=== PATIENT | female | born 1940 | race Caucasian/White ===

== ENCOUNTER 2017-01-03 19:51 | Emergency (ER) | payer MEDICARE ==
[~2017-01-03] VITALS: Ht 162.6 cm; Wt 68.0 kg
[2017-01-03] MEDS ORDERED: ADENOSINE 6 MG/2 ML (ADENOCARD) VIAL IV ONE ×3 (19:57→20:45)
[2017-01-03] MEDS ORDERED: NS IV 1000 ML 1,000 ML ONE (20:03)
--- NOTE | 2017-01-03 20:19 | ED Cardiac General ---
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 Patient apparently c/ long hx of SVT. Her turkish line attendant is apparently @ [facility] in [place] and she just moved to this area and hasn't established c/ anyone here yet. Denies any chest pain. Does get a little SOA when this occurs. Reports not missing any of her meds. States this just happens about every 3 months. Denies ever being considered for ablation therapy. Timing/Duration: constant, other (just INVESTMENT BROKER) Activities at Onset: rest Prior CP/Workup: cardiac cath (c/ stent in past) Modifying Factors: improves with other (nothing) NTG SL INVESTMENT BROKER: No ASA po INVESTMENT BROKER: No Associated Systoms: No Chest Pain, Shortness of Air Allergies and Home Medications Allergies Coded Allergies: codeine (Verified Allergy, Unknown, 01/03/17) Review of Systems Constitutional: see HPI Respiratory: See HPI, Shortness of Air Cardiovascular: See HPI, Denies Chest Pain, Palpitations All Other Systems Reviewed Negative Unless Noted: Yes (Negative excepted noted.) Physical Exam Vital Signs Vital Sign - Last 12Hours 01/03/17 19:51 Temp 99.4 Pulse 177 Resp 20 B/P (MAP) 123/98 Pulse Ox 98 O2 Delivery Room Air Capillary Refill : General Appearance: No Apparent Distress, WD/WN, Other (patient very calm) Respiratory: No Respiratory Distress Cardiovascular: Tachycardia Rectal: Deferred Neurologic/Psychiatric: Alert, Oriented x3, No Motor/Sensory Deficits, Normal Mood/Affect Skin: Warm/Dry Progress/Results/Core Measures Results/Orders Lab Results Laboratory Tests Test 01/03/17 20:05 Range/Units White Blood Count 8.4 4.3-11.0 10^3/uL Red Blood Count 4.78 4.35-5.85 10^6/uL Hemoglobin 14.2 11.5-16.0 G/DL Hematocrit 43 35-52 % Mean Corpuscular Volume 90 80-99 FL Mean Corpuscular Hemoglobin 30 25-34 PG Mean Corpuscular Hemoglobin Concent 33 32-36 G/DL Red Cell Distribution Width 14.8 H 10.0-14.5 % Platelet Count 263 130-400 10^3/uL Mean Platelet Volume 9.3 7.4-10.4 FL Neutrophils (%) (Auto) 58 42-75 % Lymphocytes (%) (Auto) 30 12-44 % Monocytes (%) (Auto) 9 0-12 % Eosinophils (%) (Auto) 2 0-10 % Basophils (%) (Auto) 0 0-10 % Neutrophils # (Auto) 4.9 1.8-7.8 X 10^3 Lymphocytes # (Auto) 2.6 1.0-4.0 X 10^3 Monocytes # (Auto) 0.8 0.0-1.0 X 10^3 Eosinophils # (Auto) 0.2 0.0-0.3 10^3/uL Basophils # (Auto) 0.0 0.0-0.1 10^3/uL Sodium Level 139 135-145 MMOL/L Potassium Level 3.9 3.6-5.0 MMOL/L Chloride Level 100 98-107 MMOL/L Carbon Dioxide Level 27 21-32 MMOL/L Anion Gap 12 5-14 MMOL/L Blood Urea Nitrogen 27 H 7-18 MG/DL Creatinine 1.12 0.60-1.30 MG/DL Estimat Glomerular Filtration Rate 47 BUN/Creatinine Ratio 24 H 0-20 Glucose Level 152 H 70-105 MG/DL Calcium Level 9.6 8.5-10.1 MG/DL Magnesium Level 1.6 L 1.8-2.4 MG/DL Total Bilirubin 0.5 0.1-1.0 MG/DL Aspartate Amino Transf (AST/SGOT) 19 5-34 U/L Alanine Aminotransferase (ALT/SGPT) 28 0-55 U/L Alkaline Phosphatase 80 40-136 U/L Troponin I < 0.30 <0.30 NG/ML Total Protein 6.9 6.4-8.2 GM/DL Albumin 4.3 3.2-4.5 GM/DL Thyroid Stimulating Hormone (TSH) 3.09 0.35-4.94 UIU/ML Digoxin Level 0.48 L 0.80-2.00 NG/ML My Orders Orders - WENDY VALENTINE DO Adenosine Injection (Adenocard Injection (01/03/17 19:57) Ns Iv 1000 Ml (Sodium Chloride 0.9%) (01/03/17 20:03) Saline Lock/Iv-Start (01/03/17 20:16) Ekg Tracing (01/03/17 20:16) Cbc With Automated Diff (01/03/17 20:16) Comprehensive Metabolic Panel (01/03/17 20:16) Digoxin (01/03/17 20:16) Magnesium (01/03/17 20:16) Thyroid Stimulating Hormone (01/03/17 20:16) Troponin I (01/03/17 20:16) Chest 1 View, Ap/Pa Only (01/03/17 20:16) Ekg Tracing (01/03/17 20:16) Adenosine Injection (Adenocard Injection (01/03/17 20:45) Adenosine Injection (Adenocard Injection (01/03/17 20:45) Ns Iv 1000 Ml (Sodium Chloride 0.9%) (01/03/17 20:45) Magnesium Oxide Tablet (Mag Ox Tablet) (01/03/17 20:45) Medications Given in ED Vital Signs/I&O Vital Sign - Last 12Hours 01/03/17 01/03/17 19:51 21:52 Temp 99.4 Pulse 177 86 Resp 20 20 B/P (MAP) 123/98 Pulse Ox 98 98 O2 Delivery Room Air Room Air Intake and Output 01/03/17 23:59 Intake Total 1000 ml Balance 1000 ml Progress Note : Progress Note Went ahead and proceeded c/ 6 mg of Adenocard IVP and patient had a very short run of NSR, but rapidly went back into SVT. Went ahead and gave her 12 mg IVP and she successful converted back into a NSR and maintained it the entire time she was in the ED. Did find her dig level to be low and am going to have her take an extra dose tonight (normally takes it in the AM). ECG Initial ECG Impression Date: Jan 03, 2017 Initial ECG Rhythm: SVT Initial ECG Impression: SVT Initial ECG Comparisson: No Previous ECG Available Diagnostic Imaging Diagonstic Imaging: Xray Plain Films/CT/US/NM/MRI: chest (NAD per radiologist) Departure Impression Impression: Primary Impression: Supraventricular tachycardia Additional Impressions: Hypomagnesemia Subtherapeutic digoxin levev Disposition: 01 HOME, SELF-CARE Condition: Improved Departure-Patient Inst. Decision time for Depature: 21:37 Referrals: BILL DENG MD Patient Instructions: Supraventricular Tachycardia (SVT) Add. Discharge Instructions: All discharge instructions reviewed with patient and/or family. Voiced understanding. TAKE AN EXTRA DOSE OF YOUR DIGOXIN WHEN YOU GET HOME TONIGHT. RECOMMEND CALLING AND GETTING SET UP WITH A CONCRETE SAW OPERATOR MARIJA. WENDY VALENTINE DO Jan 03, 2017 20:19
[2017-01-03 20:23] LABS: BASOPHILS % (AUTO) 0 % (0-10); EOSINOPHILS # (AUTO) 0.2 10^3/uL (0.0-0.3); EOSINOPHILS % (AUTO) 2 % (0-10); LYMPHOCYTES # (AUTO) 2.6 X 10^3 (1.0-4.0); LYMPHOCYTES % (AUTO) 30 % (12-44); MEAN CORPUSCULAR HEMOGLOBIN 30 PG (25-34); MEAN CORPUSCULAR HGB CONC 33 G/DL (32-36); MEAN CORPUSCULAR VOLUME 90 FL (80-99); MEAN PLATELET VOLUME 9.3 FL (7.4-10.4); MONOCYTES # (AUTO) 0.8 X 10^3 (0.0-1.0); MONOCYTES % (AUTO) 9 % (0-12); NEUTROPHILS # (AUTO) 4.9 X 10^3 (1.8-7.8); NEUTROPHILS % (AUTO) 58 % (42-75); PLATELET COUNT 263 10^3/uL (130-400); RED BLOOD COUNT 4.78 10^6/uL (4.35-5.85); RED CELL DISTRIBUTION WIDTH 14.8 % (10.0-14.5); WHITE BLOOD COUNT 8.4 10^3/uL (4.3-11.0)
[2017-01-03 20:37] LABS: ALANINE AMINOTRANSFERASE 28 U/L (0-55); ALBUMIN 4.3 GM/DL (3.2-4.5); ANION GAP 12 MMOL/L (5-14); ASPARTATE AMINO TRANSFERASE 19 U/L (5-34); BILIRUBIN,TOTAL 0.5 MG/DL (0.1-1.0); BLOOD UREA NITROGEN 27 MG/DL (7-18); BUN/CREATININE RATIO 24 (0-20); CALCIUM 9.6 MG/DL (8.5-10.1); CARBON DIOXIDE 27 MMOL/L (21-32); CHLORIDE 100 MMOL/L (98-107); CREATININE SERUM 1.12 MG/DL (0.60-1.30); GFR ESTIMATED 47; GLUCOSE 152 MG/DL (70-105); MAGNESIUM 1.6 MG/DL (1.8-2.4); POTASSIUM 3.9 MMOL/L (3.6-5.0); SODIUM 139 MMOL/L (135-145); TOTAL PROTEIN 6.9 GM/DL (6.4-8.2)
[2017-01-03] MEDS ORDERED: MAGNESIUM OXIDE (MAG-OX)400 MG TAB PO ONE (20:45)
[2017-01-03] MEDS ORDERED: NS IV 1000 ML 1,000 ML IV SCH (20:45)
[2017-01-03 20:57] LABS: DIGOXIN 0.48 NG/ML (0.80-2.00); THYROID STIMULATING HORMONE 3.09 UIU/ML (0.35-4.94); TROPONIN I < 0.30 NG/ML (<0.30)
--- NOTE | 2017-01-03 21:10 | Diagnostic Imaging Report ---
INDICATION: SVT COMPARISON: None FINDINGS: Upright portable view of the chest is obtained. Heart size is normal. The pulmonary vessels appear unremarkable. There is no pneumothorax, mediastinal widening or pleural fluid. The lungs are clear. IMPRESSION: Negative chest Dictated by: Dictated on workstation # [id number]
[2017-01-03 21:52] VITALS: BP 100/61
== END 2017-01-03 21:52 | disposition home or self-care (01) ==
LOC: ER 19:53
DX: I47.1 Supraventricular tachycardia (principal); E83.42 Hypomagnesemia; R79.1 Abnormal coagulation profile; Z95.5 Presence of coronary angioplasty implant and graft
CPT/HCPCS: 36415; 71010; 80053; 80162; 83735; 84443; 84484; 85025; 93005

== ENCOUNTER 2017-02-13 23:48 | Emergency (ER) | payer MEDICARE ==
[~2017-02-13] VITALS: Ht 167.6 cm; Wt 71.2 kg
[2017-02-14] MEDS ORDERED: NS IV 500 ML 500 ML IV ONE (00:22)
--- NOTE | 2017-02-14 00:22 | ED Cardiac General ---
History of Present Illness General Chief Complaint: Cardiac/General Problems Stated Complaint: FAST HEART RATE Nursing Triage Note: PT TO ED W/ C/O TACHYCARDIA ONSET 2229 THAT STOPPED BUT STARTED AGAIN. DENIES CP, SOA AT THIS TIME. REPORTS THIS HAPPENS "ALL THE TIME." REPORTS SHE'S RECENTLY MOVED TO [place] FROM [place], HAS AN APPT W/ DR DENG BUT NOT UNTIL February Source: patient Exam Limitations: no limitations History of Present Illness Time seen by provider: 00:06 Initial Comments Patient presents for private conveyance the ER with chief complaint that she sat down this evening and her heart started racing about 10:30. She says this happens about once a month and it will convert back on its own. She says she does not have atrial fibrillation she is however on Plavix for a stent 8 or 9 years ago. She was seen by a debt collector in [facility] and was offered an ablation but decided against it. She was set up an appointment to go see Dr. Deng, debt collector here and [place] but has not made that appointment yet. Patient denies chest pain shortness of breath nausea and diaphoresis weakness numbness tingling. She says she does have thyroid blood pressure and diabetes. She has not had any malaise fever chills or illness recently. She denies dysuria or rash. Allergies and Home Medications Allergies Coded Allergies: codeine (Verified Allergy, Unknown, 01/03/17) Review of Systems Constitutional: No chills, No diaphoresis, No fever, malaise Respiratory: Denies Cough, Denies Shortness of Air Cardiovascular: See HPI, Denies Chest Pain, Denies Edema, Denies Irregular Heart Rate, Palpitations, Denies Syncope Gastrointestinal: Denies Abdominal Pain, Denies Diarrhea, Denies Nausea Genitourinary: Denies Burning, Denies Discharge Musculoskeletal: No back pain, No joint pain Skin: No pruritus, No rash Psychiatric/Neurological: Denies Headache, Denies Numbness Past Udaqetp-Vajwpj-Rulwso Hx Patient Social History Alcohol Use: Denies Use Recreational Drug Use: No Smoking Status: Never a Smoker Recent Foreign Travel: No Contact w/Someone Who Travel: No Recent Infectious Disease Expo: No Respiratory Respiratory Disorders: COPD Endocrine Endocrine Disorders: Diabetes, Non-Insulin dep Physical Exam Vital Signs Vital Sign - Last 12Hours 02/13/17 23:54 Temp 97.1 Pulse 158 Resp 20 B/P (MAP) 114/86 Pulse Ox 97 O2 Delivery Room Air Capillary Refill : Less Than 3 Seconds General Appearance: No Apparent Distress, WD/WN HEENT: PERRL/EOMI, Pharynx Normal Neck: Full Range of Motion, Supple Respiratory: Chest Non Tender, Lungs Clear, Normal Breath Sounds Cardiovascular: No Edema, No Murmur, Normal Peripheral Pulses, Tachycardia Gastrointestinal: Normal Bowel Sounds, Non Tender, Soft Neurologic/Psychiatric: Alert, Oriented x3 Skin: Normal Color, Warm/Dry Progress/Results/Core Measures Results/Orders Lab Results Laboratory Tests Test 02/14/17 00:00 Range/Units White Blood Count 10.0 4.3-11.0 10^3/uL Red Blood Count 4.73 4.35-5.85 10^6/uL Hemoglobin 14.2 11.5-16.0 G/DL Hematocrit 43 35-52 % Mean Corpuscular Volume 91 80-99 FL Mean Corpuscular Hemoglobin 30 25-34 PG Mean Corpuscular Hemoglobin Concent 33 32-36 G/DL Red Cell Distribution Width 15.1 H 10.0-14.5 % Platelet Count 264 130-400 10^3/uL Mean Platelet Volume 9.7 7.4-10.4 FL Neutrophils (%) (Auto) 67 42-75 % Lymphocytes (%) (Auto) 22 12-44 % Monocytes (%) (Auto) 9 0-12 % Eosinophils (%) (Auto) 2 0-10 % Basophils (%) (Auto) 0 0-10 % Neutrophils # (Auto) 6.6 1.8-7.8 X 10^3 Lymphocytes # (Auto) 2.2 1.0-4.0 X 10^3 Monocytes # (Auto) 0.9 0.0-1.0 X 10^3 Eosinophils # (Auto) 0.2 0.0-0.3 10^3/uL Basophils # (Auto) 0.0 0.0-0.1 10^3/uL Sodium Level 137 135-145 MMOL/L Potassium Level 4.3 3.6-5.0 MMOL/L Chloride Level 98 98-107 MMOL/L Carbon Dioxide Level 19 L 21-32 MMOL/L Anion Gap 20 H 5-14 MMOL/L Blood Urea Nitrogen 33 H 7-18 MG/DL Creatinine 1.11 0.60-1.30 MG/DL Estimat Glomerular Filtration Rate 48 BUN/Creatinine Ratio 30 Glucose Level 172 H 70-105 MG/DL Calcium Level 9.7 8.5-10.1 MG/DL Magnesium Level 2.3 1.8-2.4 MG/DL Total Bilirubin 0.4 0.1-1.0 MG/DL Aspartate Amino Transf (AST/SGOT) 27 5-34 U/L Alanine Aminotransferase (ALT/SGPT) 28 0-55 U/L Alkaline Phosphatase 81 40-136 U/L Troponin I < 0.30 <0.30 NG/ML Total Protein 7.5 6.4-8.2 GM/DL Albumin 4.2 3.2-4.5 GM/DL Thyroid Stimulating Hormone (TSH) 5.33 H 0.35-4.94 UIU/ML My Orders Orders - RUBY BALDERAS Troponin I (02/14/17 00:22) Chest 1 View, Ap/Pa Only (02/14/17 00:22) Ekg Tracing (02/14/17:22) Saline Lock/Iv-Start (02/14/17 00:22) Monitor-Rhythm Ecg Trace Only (02/14/17 00:22) Cbc With Automated Diff (02/14/17:22) Comprehensive Metabolic Panel (02/14/17:22) Magnesium (02/14/17 00:22) Thyroid Stimulating Hormone (02/14/17 00:22) Ns Iv 500 Ml (Sodium Chloride 0.9%) (02/14/17 00:22) Ekg Tracing (02/14/17 00:28) Medications Given in ED Current Medications Medications Dose Ordered Sig/Melanie Route Start Time Stop Time Status Last Admin Dose Admin Sodium Chloride 500 ml @ 0 mls/hr Q0M ONCE IV 02/14/17 00:22 02/14/17 00:25 DC 02/14/17 00:29 500 MLS/HR Vital Signs/I&O Vital Sign - Last 12Hours 02/13/17 02/14/17 23:54 02:45 Temp 97.1 Pulse 158 82 Resp 20 18 B/P (MAP) 114/86 Pulse Ox 97 96 O2 Delivery Room Air Room Air Blood Pressure Mean: 95 Progress Note : Time: 01:30 Progress Note Supraventricular tachycardia that auto converted shortly after arrival. We'll get a workup looking for thyroid irregularities or a coronary. Patient is asymptomatic and this time the patient feels she is ready go home. She states this happens about every month and she usually gets a short workup and management converts on her own. She's never had to be shocked. ECG Initial ECG Impression Date: Feb 14, 2017 Initial ECG Impression Time: 23:59 Initial ECG Rate: 158 Initial ECG Rhythm: SVT Initial ECG Impression: SVT Initial ECG Comparisson: Changed EKG : EKG Time: 00:32 Rate: 88 Rhythm: Normal Sinus Intervals: Normal ECG Comparisson: Changed ECG Impression: Normal Comment No ST elevation or depression Diagnostic Imaging Diagonstic Imaging: Xray Plain Films/CT/US/NM/MRI: chest Comments No acute cardiopulmonary processes. Reviewed: Reviewed by Me Consults Consults : Consulting Physician: Nyasia RAMIREZ MD Consults Notes Discussed the case and he recommends the patient is follow-up within one week with her debt collector Dr. Deng. Departure Impression Impression: Primary Impression: Supraventricular tachycardia Disposition: 01 HOME, SELF-CARE Condition: Improved Departure-Patient Inst. Decision time for Depature: 02:39 Referrals: NO,LOCAL PHYSICIAN (PCP/Family) Primary Care Physician Patient Instructions: Paroxysmal Supraventricular Tachycardia (DC) Add. Discharge Instructions: Please make follow-up appointment with your debt collector within one week. Call them in the morning at his office at [phone]. If you're having chest pain or shortness of breath please return to the ER otherwise found following up with her primary care physician and debt collector. All discharge instructions reviewed with patient and/or family. Voiced understanding. Copy Copies To 1: BILL DENG MD, TITUS J Feb 14, 2017 00:22
[2017-02-14 00:35] LABS: BASOPHILS % (AUTO) 0 % (0-10); EOSINOPHILS # (AUTO) 0.2 10^3/uL (0.0-0.3); EOSINOPHILS % (AUTO) 2 % (0-10); LYMPHOCYTES # (AUTO) 2.2 X 10^3 (1.0-4.0); LYMPHOCYTES % (AUTO) 22 % (12-44); MEAN CORPUSCULAR HEMOGLOBIN 30 PG (25-34); MEAN CORPUSCULAR HGB CONC 33 G/DL (32-36); MEAN CORPUSCULAR VOLUME 91 FL (80-99); MEAN PLATELET VOLUME 9.7 FL (7.4-10.4); MONOCYTES # (AUTO) 0.9 X 10^3 (0.0-1.0); MONOCYTES % (AUTO) 9 % (0-12); NEUTROPHILS # (AUTO) 6.6 X 10^3 (1.8-7.8); NEUTROPHILS % (AUTO) 67 % (42-75); PLATELET COUNT 264 10^3/uL (130-400); RED BLOOD COUNT 4.73 10^6/uL (4.35-5.85); RED CELL DISTRIBUTION WIDTH 15.1 % (10.0-14.5)
[2017-02-14 01:11] LABS: ALBUMIN 4.2 GM/DL (3.2-4.5); BILIRUBIN,TOTAL 0.4 MG/DL (0.1-1.0); CALCIUM 9.7 MG/DL (8.5-10.1); CREATININE SERUM 1.11 MG/DL (0.60-1.30); MAGNESIUM 2.3 MG/DL (1.8-2.4); POTASSIUM 4.3 MMOL/L (3.6-5.0); TOTAL PROTEIN 7.5 GM/DL (6.4-8.2)
[2017-02-14 01:34] LABS: THYROID STIMULATING HORMONE 5.33 UIU/ML (0.35-4.94)
[2017-02-14 02:45] VITALS: BP 152/72
--- NOTE | 2017-02-14 09:21 | Diagnostic Imaging Report ---
EXAMINATION: Portable erect AP chest at 12:42 AM. INDICATION: Tachycardia. FINDINGS: The heart size is within normal limits and stable when compared to 01/03/2017. The lungs are clear. There is still no sign of failure, pneumonia, or pleural effusion. The mediastinum is not widened. The osseous structures are intact. IMPRESSION: There is no evidence for an acute cardiopulmonary abnormality. Dictated by: Dictated on workstation # [id number]
== END 2017-02-14 02:45 | disposition home or self-care (01) ==
LOC: EDUNIT# 23:48 → ER 23:50
DX: I47.1 Supraventricular tachycardia (principal); E11.9 Type 2 diabetes mellitus without complications; J44.9 Chronic obstructive pulmonary disease, unspecified
CPT/HCPCS: 36415; 71010; 80053; 83735; 84443; 84484; 85025; 93005; 93041; 96360

== ENCOUNTER 2017-02-26 14:41 | Emergency (ER) | payer MEDICARE | END 2017-02-26 14:59 | disposition left against medical advice (07) | LOC: EDUNIT# 14:41 → ER 14:44 | DX: R00.2 Palpitations (principal) | CPT/HCPCS: 93005 ==

== ENCOUNTER → 2017-03-09 | Outpatient (CLI) | payer MEDICARE ==
[~2017-03-09] MED LIST: IOHEXOL 350 MG/ML 100 ML (OMNIPAQUE 350) VIAL IV ONE; NS 100 ML (IVPB) BAG IV ONE
--- NOTE | 2017-03-09 09:00 | Diagnostic Imaging Report ---
Clinical indication: Patient with carotid stenosis. Exam: CT angiogram of the neck performed with 40 cc of Omnipaque 350 IV contrast. Sagittal and coronal MIP reformations were created for better visualization of vascular anatomy. Of note, decreased contrast administration was given due to low GFR. Comparison: None. Findings: There is decreased contrast opacification of the arterial vessels likely related to decreased contrast administration due to low GFR. There is atherosclerotic disease involving the aortic arch. There is common origin of the left common carotid artery and brachiocephalic artery consistent with bovine arch. There is atherosclerotic disease involving the proximal great vessels. There is an area of roughly 50% stenosis involving the proximal right subclavian vein with dense atherosclerotic plaque seen. The remainder of the right subclavian artery is patent. The left subclavian artery and right brachiocephalic artery is patent. There is dense atherosclerotic plaque within the bilateral distal right CCA, bilateral proximal right ECA, and bilateral proximal cervical right ICA. There is roughly 50% stenosis of the cervical right ICA bulb. The origin of the right ECA is partially obscured by calcification but is at least 50% stenotic, but is patent. There is greater than 70% stenosis, but less than near occlusion involving the proximal cervical left ICA. There is also severe stenosis of the origin of the left ECA. There is slight decreased contrast opacification of the bilateral mid and distal cervical ICA which appears grossly patent to the skull base. There is a slightly dominant right cervical vertebral artery. Both cervical vertebral arteries are patent as visualized. There is a roughly 4 mm wide x 7 mm long saccular appearing vascular outpouching extending from the anterior communicating artery region. This is concerning for an aneurysm. There is emphysematous disease involving both upper lobes. Multinodular thyroid gland is seen. There is a 14 mm low-density nodule in the right thyroid gland. There is a 7 mm low-density nodule in the isthmus inferiorly. There are other nodular areas seen within the thyroid gland. Remainder of the neck soft tissue structures show no other significant abnormality. There is cervical spine degenerative disease with vertebral body spurs and mild bilateral facet arthropathy. 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 MRA of the [place] or conventional digital subtraction cerebral angiogram is suggested. 2: There is severe stenosis of the proximal cervical left ICA and proximal left ECA. 3: There is roughly 50% stenosis of the cervical right ICA bulb and at least 50% stenosis of the proximal right ECA. Results of this report was discussed with Dr. Whit Lei via the telephone on 03/09/2017 at 0850 hrs. Dictated by: Dictated on workstation # [id number]
== END ==
LOC: RAD 07:13
PROVIDERS: ATTEND Internal Medicine Cardiovascular Disease
DX: I65.23 Occlusion and stenosis of bilateral carotid arteries (principal); I77.9 Disorder of arteries and arterioles, unspecified
CPT/HCPCS: 70498

== ENCOUNTER → 2017-03-13 | Outpatient (CLI) | payer MEDICARE ==
--- NOTE | 2017-03-14 13:26 | Diagnostic Imaging Report ---
PROCEDURE: MR angiography of the brain without the use of contrast. TECHNIQUE: 3D [id number] non contrast enhanced MR angiography of the head was performed. A source data was reformatted into rotating MIP projections. INDICATION: Aneurysm. 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 That finding is again evident on this study and is best visualized on the axial series (image 62/112). The suspected aneurysm measures 4.0 x 6.6 mm. There is no other sign of an aneurysm involving the [place]. There is no hemodynamically significant stenosis. The A1 segment on the right is atretic. This is a developmental variant. The middle and anterior cerebral arteries are generally unremarkable. The vertebral arteries, the basilar artery, and the posterior cerebral arteries are quite small. 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 The intracranial contents, where visualized, show no sign of a mass or an acute abnormality. There is cortical atrophy present. The degree of atrophy is consistent with the patient's age. The ventricles are not abnormally dilated. The orbits are symmetrical and within normal limits. There is mucosal thickening of the right maxillary antrum. The sinuses are otherwise generally clear where visualized. The seventh and eighth nerve complexes are unremarkable. IMPRESSION: 1. 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 The aneurysm measures approximately 4.0 x 6.6 mm. 2. There is no other sign of aneurysm formation, and there is no hemodynamically significant stenosis of the visualized intracranial arterial system. 3. The vertebral arteries, the basilar artery, and the posterior cerebral arteries are diminutive. 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 4. There is right maxillary sinusitis. 5. These results were called to Dr. Sherman's office. Dictated by: Dictated on workstation # [id number]
== END ==
LOC: RAD 16:29
PROVIDERS: ATTEND Thoracic Surgery (Cardiothoracic Vascular Surgery)
DX: I67.1 Cerebral aneurysm, nonruptured (principal)
CPT/HCPCS: 70544

== ENCOUNTER → 2017-03-17 | Outpatient (CLI) | payer MEDICARE ==
[~2017-03-17] MED LIST changes: +ASPI-983 PO; +CLOP75TA69 PO; +DIGO125T PO; +FLUT1DIS26 IH; +HYDR25TA4 PO; -IOHEXOL 350 MG/ML 100 ML (OMNIPAQUE 350) VIAL IV ONE; +IPRA3AMP IH; +MAGN400T6 PO; +METF500T4 PO; +METO50TA2 PO; -NS 100 ML (IVPB) BAG IV ONE; +SIMV80TA2 PO
== END ==
LOC: CARD 13:06
PROVIDERS: ATTEND Internal Medicine Cardiovascular Disease
DX: I25.10 Atherosclerotic heart disease of native coronary artery without angina pectoris (principal); R00.2 Palpitations; I47.1 Supraventricular tachycardia; E11.9 Type 2 diabetes mellitus without complications
CPT/HCPCS: 93306

== ENCOUNTER 2017-03-19 18:58 | Inpatient (IN) | payer MEDICARE ==
[~2017-03-19] VITALS: Ht 167.6 cm; Wt 75.1 kg
[2017-03-19] VITALS (7 sets, daily range): BP systolic 111–124; BP diastolic 51–61
[~2017-03-19 18:58] MED LIST changes: +ADENOSINE 6 MG/2 ML (ADENOCARD) VIAL IV ONE; -ASPI-983 PO; -CLOP75TA69 PO; -DIGO125T PO; +DILTIAZEM 25 MG/5 ML INJ (CARDIZEM) VIAL ONE; -FLUT1DIS26 IH; -HYDR25TA4 PO; -IPRA3AMP IH; -MAGN400T6 PO; -METF500T4 PO; -METO50TA2 PO; +NS IV 500 ML 500 ML ONE; -SIMV80TA2 PO
[2017-03-19] MEDS ORDERED: SODIUM CHLORIDE (ADD-VANTAGE) 100 ML IV ONE (19:08)
[2017-03-19] MEDS ORDERED: DILTIAZEM 100 MG/VIAL (CARDIZEM) ADD-VANTAGE IV ONE (19:08)
[2017-03-19] MEDS ORDERED: NS IV 1000 ML 1,000 ML IV ONE ×2 (19:20→19:22)
[2017-03-19] MEDS ORDERED: NS IV 500 ML 500 ML IV ONE (19:20)
--- NOTE | 2017-03-19 19:25 | ED Cardiac General ---
History of Present Illness General Chief Complaint: Cardiac/General Problems Stated Complaint: TACHYCARDIA Source: patient, EMS Exam Limitations: no limitations History of Present Illness Time seen by provider: 19:13 Initial Comments Feeling tired and weak and feeling that her heart is in rapid rate. She has a history of atrophic relation with rapid ventricular response. In the past Cardizem worked well. She is known to this provider. She is not having any chest pain, short of breath, cough, ear, malaise, chills, rash, diarrhea. She is known to Dr. Sherman. Allergies and Home Medications Allergies Coded Allergies: codeine (Verified Allergy, Unknown, 01/03/17) Review of Systems Constitutional: No chills, No diaphoresis, No fever EENTM: No Eye Pain, No Ear Pain Respiratory: Denies Cough, Denies Shortness of Air Cardiovascular: Denies Chest Pain, Denies Edema, Irregular Heart Rate, Denies Lightheadedness, Palpitations, Denies Syncope Gastrointestinal: Denies Abdominal Pain, Denies Constipated, Denies Nausea, Denies Vomiting Genitourinary: Denies Burning, Denies Drainage Musculoskeletal: No back pain, No joint pain Skin: No pruritus, No rash Psychiatric/Neurological: Denies Headache, Denies Numbness Past Zewafmt-Lzsvvt-Esiudb Hx Patient Social History Alcohol Use: Denies Use Recreational Drug Use: No Smoking Status: Never a Smoker Recent Foreign Travel: No Contact w/Someone Who Travel: No Surgeries History of Surgeries: No Respiratory History of Respiratory Disorde: Yes Respiratory Disorders: COPD Cardiovascular History of Cardiac Disorders: Yes (SVT, STENT) Genitourinary History of Genitourinary Disor: No Gastrointestinal History of Gastrointestinal Di: No Musculoskeletal History of Musculoskeletal Dis: No Endocrine History of Endocrine Disorders: Yes Endocrine Disorders: Diabetes, Non-Insulin dep HEENT History of HEENT Disorders: No Cancer History of Cancer: No Psychosocial History of Psychiatric Problem: No Integumentary History of Skin or Integumenta: No Physical Exam Vital Signs Vital Sign - Last 12Hours 03/19/17 19:00 Temp 98.2 Pulse 168 Resp 31 B/P (MAP) 132/87 Pulse Ox 97 Capillary Refill : General Appearance: No Apparent Distress, WD/WN HEENT: PERRL/EOMI, TMs Normal, Normal ENT Inspection, Pharynx Normal Neck: Full Range of Motion, Supple Respiratory: Chest Non Tender, Lungs Clear, Normal Breath Sounds Cardiovascular: No Edema, No Murmur, Normal Peripheral Pulses Gastrointestinal: Non Tender, Soft Extremity: Normal Capillary Refill, No Calf Tenderness, No Pedal Edema Neurologic/Psychiatric: Alert, Oriented x3, No Motor/Sensory Deficits Skin: Normal Color, Warm/Dry Lymphatic: No Adenopathy Progress/Results/Core Measures Results/Orders Lab Results Laboratory Tests Test 03/19/17 19:04 Range/Units White Blood Count 9.3 4.3-11.0 10^3/uL Red Blood Count 4.65 4.35-5.85 10^6/uL Hemoglobin 14.1 11.5-16.0 G/DL Hematocrit 42 35-52 % Mean Corpuscular Volume 91 80-99 FL Mean Corpuscular Hemoglobin 30 25-34 PG Mean Corpuscular Hemoglobin Concent 33 32-36 G/DL Red Cell Distribution Width 14.8 H 10.0-14.5 % Platelet Count 275 130-400 10^3/uL Mean Platelet Volume 9.5 7.4-10.4 FL Neutrophils (%) (Auto) 64 42-75 % Lymphocytes (%) (Auto) 25 12-44 % Monocytes (%) (Auto) 8 0-12 % Eosinophils (%) (Auto) 2 0-10 % Basophils (%) (Auto) 1 0-10 % Neutrophils # (Auto) 6.0 1.8-7.8 X 10^3 Lymphocytes # (Auto) 2.3 1.0-4.0 X 10^3 Monocytes # (Auto) 0.8 0.0-1.0 X 10^3 Eosinophils # (Auto) 0.2 0.0-0.3 10^3/uL Basophils # (Auto) 0.1 0.0-0.1 10^3/uL Sodium Level 138 135-145 MMOL/L Potassium Level 3.6 3.6-5.0 MMOL/L Chloride Level 97 L 98-107 MMOL/L Carbon Dioxide Level 25 21-32 MMOL/L Anion Gap 16 H 5-14 MMOL/L Blood Urea Nitrogen 32 H 7-18 MG/DL Creatinine 1.25 0.60-1.30 MG/DL Estimat Glomerular Filtration Rate 42 BUN/Creatinine Ratio 26 Glucose Level 231 H 70-105 MG/DL Calcium Level 10.0 8.5-10.1 MG/DL Phosphorus Level 3.1 2.3-4.7 MG/DL Magnesium Level 1.8 1.8-2.4 MG/DL Total Bilirubin 0.5 0.1-1.0 MG/DL Aspartate Amino Transf (AST/SGOT) 23 5-34 U/L Alanine Aminotransferase (ALT/SGPT) 26 0-55 U/L Alkaline Phosphatase 89 40-136 U/L Troponin I < 0.30 <0.30 NG/ML B-Type Natriuretic Peptide 81.1 <100.0 PG/ML Total Protein 7.5 6.4-8.2 GM/DL Albumin 4.3 3.2-4.5 GM/DL Thyroid Stimulating Hormone (TSH) 2.73 0.35-4.94 UIU/ML Digoxin Level 0.50 L 0.80-2.00 NG/ML My Orders Orders - RUBY BALDERAS Adenosine Injection (Adenocard Injection (03/19/17 18:57) Diltiazem Injection (Cardizem Injection) (03/19/17 18:57) Ns Iv 500 Ml (Sodium Chloride 0.9%) (03/19/17 18:58) Sodium Chloride (Add-[place]) (Ns (Add-V (03/19/17 19:08) Diltiazem Drip (Cardizem Drip) (03/19/17 19:08) BNP (03/19/17 19:20) Cbc With Automated Diff (03/19/17 19:20) Comprehensive Metabolic Panel (03/19/17 19:20) Digoxin (03/19/17 19:20) Magnesium (03/19/17 19:20) Thyroid Stimulating Hormone (03/19/17 19:20) Troponin I (03/19/17 19:20) Ua Culture If Indicated (03/19/17 19:20) Phosphorus (03/19/17 19:20) Chest 1 View, Ap/Pa Only (03/19/17 19:20) Ekg Tracing (03/19/17 19:20) Saline Lock/Iv-Start (03/19/17 19:20) Monitor-Rhythm Ecg Trace Only (03/19/17 19:20) Saline Lock/Iv-Start (03/19/17 19:20) Ns Iv 500 Ml (Sodium Chloride 0.9%) (03/19/17 19:20) Ns Iv 1000 Ml (Sodium Chloride 0.9%) (03/19/17 19:20) Ekg Tracing (03/19/17 19:20) Ns Iv 1000 Ml (Sodium Chloride 0.9%) (03/19/17 19:22) Diltiazem Injection (Cardizem Injection) (03/19/17 19:30) Sodium Chloride (Ad... W/Diltiazem Drip (03/19/17 19:30) Enoxaparin Injection (Lovenox Injection) (03/19/17 19:30) Medications Given in ED Current Medications Medications Dose Ordered Sig/Melanie Route Start Time Stop Time Status Last Admin Dose Admin Diltiazem HCl 18 mg ONCE ONCE IVP 03/19/17 19:30 03/19/17 19:31 DC 03/19/17 19:06 18 MG Enoxaparin Sodium 70 mg ONCE ONCE SC 03/19/17 19:30 03/19/17 19:31 DC 03/19/17 20:07 70 MG Sodium Chloride 500 ml @ 0 mls/hr Q0M ONCE IV 03/19/17 19:20 03/19/17 19:22 DC 03/19/17 19:05 999 MLS/HR Sodium Chloride 1,000 ml @ 0 mls/hr Q0M ONCE IV 03/19/17 19:20 03/19/17 19:22 DC 03/19/17 19:15 999 MLS/HR Sodium Chloride 1,000 ml @ 0 mls/hr Q0M ONCE IV 03/19/17 19:22 03/19/17 19:23 DC 03/19/17 19:15 999 MLS/HR Vital Signs/I&O Vital Sign - Last 12Hours 03/19/17 19:00 Temp 98.2 Pulse 168 Resp 31 B/P (MAP) 132/87 Pulse Ox 97 Progress Note : Time: 20:05 Progress Note Shortly after the second EKG was obtained the patient returned to a sinus rhythm with good P waves seen on the monitor. Paddles were and place but not needed. Patient did have a brief episode of hypotension systolic around 90s to 100. To a half liters were initiated of normal saline as well as her Cardizem drip and she was only hypertensive for about 5 or 10 minutes. Patient never lost consciousness or had chest pain. ECG Initial ECG Impression Date: Mar 19, 2017 Initial ECG Impression Time: 19:01 Initial ECG Rate: 168 Initial ECG Rhythm: SVT Initial ECG Intervals: Normal Initial ECG Impression: Atrial Fibrillation w/RVR Initial ECG Comparisson: Changed Comment Atrial fibrillation with rapid ventricular response and a repolarization abnormality that is likely due to the rapid rate. EKG : EKG Time: 19:18 Rate: 46 Rhythm: Intervals: Normal ECG Comparisson: Changed ECG Impression: Nonspecific Changes (ventricular rate cardiac) Diagnostic Imaging Diagonstic Imaging: Xray Plain Films/CT/US/NM/MRI: chest Comments No acute cardiopulmonary processes noted. Chronic changes noted. Reviewed: Reviewed by Me Consults Consults : Consulting Physician: BILL SHERMAN MD Consults Notes He says go ahead and start the Cardizem drip at 5 mg per hour. He will consult patient in the ICU. Departure Communication Time/Spoke to Admitting Phy: 19:[address] Dobson agrees with her admission and continue the Cardizem drip at the lowest dose. He is okay with consulting cardiology in the morning. Time/Spoke to Consulting Physi: 19:40 Communication/Consulting Cardiology, Dr. Sherman agrees see the patient and the morning. He recommends Cardizem drip at the lowest dose and that was titrated up in the ICU as needed. Impression Impression: Primary Impression: Atrial fibrillation with rapid ventricular response Disposition: ADMITTED INPATIENT Condition: Stable Admissions Decision to Admit Reason: Admit from ER (General) Decision to Admit/Date: Mar 19, 2017 Time/Decision to Admit Time: 20:12 Departure-Patient Inst. Referrals: NO,LOCAL PHYSICIAN (PCP/Family) Primary Care Physician Copy Copies To 1: BILL SHERMAN MD, TITUS J Mar 19, 2017 19:25
[2017-03-19 19:28] LABS: BASOPHILS # (AUTO) 0.1 10^3/uL (0.0-0.1); BASOPHILS % (AUTO) 1 % (0-10); EOSINOPHILS # (AUTO) 0.2 10^3/uL (0.0-0.3); EOSINOPHILS % (AUTO) 2 % (0-10); LYMPHOCYTES # (AUTO) 2.3 X 10^3 (1.0-4.0); LYMPHOCYTES % (AUTO) 25 % (12-44); MEAN CORPUSCULAR HEMOGLOBIN 30 PG (25-34); MEAN CORPUSCULAR HGB CONC 33 G/DL (32-36); MEAN CORPUSCULAR VOLUME 91 FL (80-99); MEAN PLATELET VOLUME 9.5 FL (7.4-10.4); MONOCYTES # (AUTO) 0.8 X 10^3 (0.0-1.0); MONOCYTES % (AUTO) 8 % (0-12); NEUTROPHILS % (AUTO) 64 % (42-75); PLATELET COUNT 275 10^3/uL (130-400); RED BLOOD COUNT 4.65 10^6/uL (4.35-5.85); RED CELL DISTRIBUTION WIDTH 14.8 % (10.0-14.5); WHITE BLOOD COUNT 9.3 10^3/uL (4.3-11.0)
[2017-03-19] MEDS ORDERED: DILTIAZEM 25 MG/5 ML INJ (CARDIZEM) VIAL IVP ONE (19:30)
[2017-03-19] MEDS ORDERED: ENOXAPARIN 80 MG/0.8 ML (LOVENOX) SYR SC ONE (19:30)
[2017-03-19] MEDS ORDERED: DILTIAZEM DRIP 100 MG in SODIUM CHLORIDE (ADD-VANTAGE) 100 ML IV SCH (19:30)
[2017-03-19 19:43] LABS: ALANINE AMINOTRANSFERASE 26 U/L (0-55); ALBUMIN 4.3 GM/DL (3.2-4.5); ANION GAP 16 MMOL/L (5-14); ASPARTATE AMINO TRANSFERASE 23 U/L (5-34); BILIRUBIN,TOTAL 0.5 MG/DL (0.1-1.0); BLOOD UREA NITROGEN 32 MG/DL (7-18); BUN/CREATININE RATIO 26; CARBON DIOXIDE 25 MMOL/L (21-32); CHLORIDE 97 MMOL/L (98-107); CREATININE SERUM 1.25 MG/DL (0.60-1.30); GFR ESTIMATED 42; GLUCOSE 231 MG/DL (70-105); MAGNESIUM 1.8 MG/DL (1.8-2.4); PHOSPHORUS 3.1 MG/DL (2.3-4.7); POTASSIUM 3.6 MMOL/L (3.6-5.0); SODIUM 138 MMOL/L (135-145); TOTAL PROTEIN 7.5 GM/DL (6.4-8.2)
--- NOTE | 2017-03-19 19:46 | Diagnostic Imaging Report ---
INDICATION: Tachycardia and palpitation Portable supine image of the chest is obtained with comparison made to study of 02/14/2017. Heart size and pulmonary vascularity remain within normal limits. There is no pneumothorax or consolidation. Defibrillator pads are present. IMPRESSION: No acute abnormality is identified. Dictated by: Dictated on workstation # [id number]
[2017-03-19 20:02] LABS: THYROID STIMULATING HORMONE 2.73 UIU/ML (0.35-4.94); TROPONIN I < 0.30 NG/ML (<0.30)
[2017-03-19] MEDS ORDERED: ACETAMINOPHEN 500 MG TAB (TYLENOL) PO PRN (21:30)
[2017-03-19] MEDS ORDERED: ONDANSETRON 4 MG/2 ML (SDV) Z0FRAN IV PRN (21:30)
[2017-03-19] MEDS: NS IV 1000 ML 1,000 ML IV SCH (22:13)
[2017-03-20] VITALS (10 sets, daily range): BP systolic 112–131; BP diastolic 51–70
[2017-03-20 05:01] LABS: BASOPHILS % (AUTO) 0 % (0-10); EOSINOPHILS # (AUTO) 0.2 10^3/uL (0.0-0.3); EOSINOPHILS % (AUTO) 3 % (0-10); LYMPHOCYTES # (AUTO) 2.3 X 10^3 (1.0-4.0); LYMPHOCYTES % (AUTO) 34 % (12-44); MEAN CORPUSCULAR HEMOGLOBIN 30 PG (25-34); MEAN CORPUSCULAR HGB CONC 33 G/DL (32-36); MEAN CORPUSCULAR VOLUME 92 FL (80-99); MEAN PLATELET VOLUME 9.6 FL (7.4-10.4); MONOCYTES # (AUTO) 0.5 X 10^3 (0.0-1.0); MONOCYTES % (AUTO) 8 % (0-12); NEUTROPHILS # (AUTO) 3.8 X 10^3 (1.8-7.8); NEUTROPHILS % (AUTO) 56 % (42-75); PLATELET COUNT 195 10^3/uL (130-400); RED BLOOD COUNT 3.83 10^6/uL (4.35-5.85); RED CELL DISTRIBUTION WIDTH 14.6 % (10.0-14.5); WHITE BLOOD COUNT 6.8 10^3/uL (4.3-11.0)
[2017-03-20 05:18] LABS: ANION GAP 11 MMOL/L (5-14); BLOOD UREA NITROGEN 26 MG/DL (7-18); BUN/CREATININE RATIO 31; CALCIUM 8.3 MG/DL (8.5-10.1); CARBON DIOXIDE 25 MMOL/L (21-32); CHLORIDE 106 MMOL/L (98-107); CREATININE SERUM 0.84 MG/DL (0.60-1.30); GFR ESTIMATED > 60; GLUCOSE 126 MG/DL (70-105); MAGNESIUM 1.5 MG/DL (1.8-2.4); PHOSPHORUS 3.2 MG/DL (2.3-4.7); POTASSIUM 3.7 MMOL/L (3.6-5.0); SODIUM 142 MMOL/L (135-145)
[2017-03-20] MEDS ORDERED: MAGNESIUM 1 GM/100 ML IVPB 100 ML IV SCH (06:00)
[2017-03-20] MEDS ORDERED: POTASSIUM CL 10MEQ/50ML IVPB 50 ML IV SCH (06:00)
[2017-03-20] MEDS ORDERED: KCL 20 MEQ TAB (K-DUR) PO SCH (06:00)
[2017-03-20] MEDS: MAGNESIUM 1 GM/100 ML IVPB 100 ML IV SCH ×2 (06:09→06:10)
--- NOTE | 2017-03-20 07:56 | Pulmonary Consultation ---
History of Present Illness History of Present Illness Date of Consultation 03/20/17 07:51 Time Seen by Provider: 07:51 Date of Admission History of Present Illness 76yo with hx of severe oxygen dependent COPD known to pulmonology in [place] presented to ED secondary to palpitations, weakness. She was found to be in Afib RVR and placed on Cardizem gtt and admitted to ICU. She has had Afib in the past. Cardiology is consulted. PT denies CP, SOB, productive cough. I am consulted for pulmonary/cc management. Allergies and Home Medications Allergies Coded Allergies: codeine (Verified Allergy, Unknown, 01/03/17) Past Zifuukt-Mfcfrg-Zlkaoz Hx Patient Social History Alcohol Use: Denies Use Recreational Drug Use: No Smoking Status: Never a Smoker Former Smoker, Quit: Mar 16, 2005 Recent Foreign Travel: No Contact w/Someone Who Travel: No Recent Infectious Disease Expo: No Recent Hopitalizations: No Physical Abuse: No Sexual Abuse: No Immunizations Up To Date PED Vaccines UTD: No Date of Pneumonia Vaccine: Aug 05, 2015 Seasonal Allergies Seasonal Allergies: No Surgeries History of Surgeries: Yes Surgeries: Cardiac Respiratory History of Respiratory Disorde: Yes Respiratory Disorders: COPD Currently Using CPAP: No Currently Using BIPAP: No Cardiovascular History of Cardiac Disorders: Yes (SVT, STENT) Neurological History of Neurological Disord: No 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 System Sexually Transmitted Disease: No HIV/AIDS: No Genitourinary History of Genitourinary Disor: No Gastrointestinal History of Gastrointestinal Di: No Musculoskeletal History of Musculoskeletal Dis: No Musculoskeletal Disorders: Arthritis Endocrine History of Endocrine Disorders: Yes Endocrine Disorders: Diabetes, Non-Insulin dep Are Your Blood Sugars Over 250: No HEENT History of HEENT Disorders: Yes (L CATARACT) HEENT Disorders: Cataract Loss of Vision: Denies Hearing Impairment: Denies Cancer History of Cancer: No Psychosocial History of Psychiatric Problem: No Suicide Risk Score: 0 Integumentary History of Skin or Integumenta: No Blood Transfusions History of Blood Disorders: No Adverse Reaction to a Blood Tr: No Family Medical History Family Medial History: Cardiovascular disease 19 FATHER 19 MOTHER G8 SISTER Diabetes mellitus G8 SISTER FH: cirrhosis G8 SISTER Hypertension 19 FATHER 19 MOTHER Review of Systems Time Seen by Provider: 07:59 Constitutional: Weakness, No: Fever, Chills, Sweats, Malaise, Other Eyes: No: Pain, Vision change, Conjunctivae inflammation, Eyelid inflammation, Other, Redness ENT: No: Ear pain, Ear discharge, Nose pain, Nose discharge, Nose congestion, Mouth pain, Mouth swelling, Throat pain, Throat swelling, Other Respiratory: No: Cough, Dry, Shortness of breath, SOB with excertion, Wheezing , Hemoptysis, Pleuritic Pain, Sputum, Wheezing, Other Cardiovascular: Palpitations, No: Chest Pain, Orthopnea, Paroxysmal Noc. Dyspnea, Edema, Lt Headedness, Other Gastrointestinal: No: Nausea, Vomiting, Abdominal Pain, Diarrhea, Constipation , Melena, Hematochezia, Other Neurological: No: Weakness, Numbness, Incoordination, Change in speech, Confusion, Seizures, Other Exam Exam Vital Signs Date Time Temp Pulse Resp B/P (MAP) Pulse Ox O2 Delivery O2 Flow Rate FiO2 03/20/17 06:00 57 21 113/51 Nasal Cannula 2.00 03/20/17 05:00 57 24 125/59 Nasal Cannula 2.00 03/20/17 04:00 Nasal Cannula 2.00 03/20/17 04:00 59 25 112/52 97 Nasal Cannula 2.00 03/20/17 04:00 98.6 Nasal Cannula 2.00 03/20/17 03:00 71 20 115/70 99 Nasal Cannula 2.00 03/20/17 02:00 63 23 123/60 Nasal Cannula 2.00 03/20/17 01:00 60 03/20/17 01:00 60 10 112/55 100 Nasal Cannula 2.00 03/20/17 00:00 98.2 03/20/17 00:00 Nasal Cannula 2.00 03/20/17 00:00 61 32 117/54 100 Nasal Cannula 2.00 03/19/17 23:08 Nasal Cannula 2.00 03/19/17 23:00 55 19 114/51 98 Nasal Cannula 2.00 03/19/17 22:30 50 19 117/57 100 Nasal Cannula 2.00 03/19/17 22:15 67 33 124/55 Nasal Cannula 2.00 03/19/17 22:00 62 21 114/56 98 Nasal Cannula 2.00 03/19/17 22:00 98.1 Nasal Cannula 2.00 03/19/17 21:45 66 31 118/57 99 Nasal Cannula 2.00 03/19/17 21:30 69 24 111/61 98 Nasal Cannula 2.00 03/19/17 21:21 71 03/19/17 21:21 71 26 122/54 98 Nasal Cannula 2.00 03/19/17 20:25 71 20 99 03/19/17 19:00 98.2 168 31 132/87 97 I & O 03/21/17 07:00 Intake Total 100 ml Balance 100 ml General Appearance: No Apparent Distress, WD/WN HEENT: PERRL/EOMI, TMs Normal, Normal ENT Inspection, Pharynx Normal Neck: Full Range of Motion, Supple Respiratory: Chest Non Tender, Lungs Clear, Normal Breath Sounds Cardiovascular: No Edema, No Murmur, Normal Peripheral Pulses Capillary Refill: Less Than 3 Seconds Extremity: Normal Capillary Refill, No Calf Tenderness, No Pedal Edema Neurologic/Psychiatric: Alert, Oriented x3, No Motor/Sensory Deficits Skin: Normal Color, Warm/Dry Lymphatic: No Adenopathy Results Lab Laboratory Tests 03/19/17 19:04 03/20/17 04:20 Assessment/Plan Assessment/Plan Afib RVR -on cardizem gtt -cardiology following oxygen dependent COPD - currently stable -SVNS, oxygen hx of tobacco use - no longer smokes 254 SUZANNE MARVIN DO Mar 20, 2017 07:56
--- NOTE | 2017-03-20 08:28 | Consultation-Cardiology ---
HPI-Cardiology Cardiology Consultation Date of Consultation 03/20/17 Date of Admission Time Seen by Provider: 08:00 Indication: palpitation HPI 76 years old lady with history of coronary artery disease paroxysmal supraventricular tachycardia. Had multiple episodes in the past, has been followed by [facility] in [place], transfer to my care earlier this month. Was doing well until yesterday when she started having palpitation and felt her heart racing, came into the emergency room and she was in narrow complex regular tachycardia, she was given Cardizem Allis which made her bradycardic then went back into tachycardia. Started on Cardizem drip and she converted to sinus rhythm and maintained sinus rhythm. Overnight she did well. Currently she is feeling well. Denied any chest pain or shortness of breath, denied any palpitation, we had the discussion regarding ablation, patient preferred to wait the episodes are usually infrequent. Usually they response to Adenosine. Home Medications & Allergies Allergies: Coded Allergies: codeine (Verified Allergy, Unknown, 01/03/17) Home Medication List Reviewed: Yes HUE-Rmujyy-Ndqopm Hx Patient Social History Marital Status: Employed/Student: retired Alcohol Use: Denies Use Recreational Drug Use: No Smoking Status: Never a Smoker Recent Foreign Travel: No Recent Infectious Disease Expo: No Recent Hopitalizations: No Physical Abuse Screen: No Sexual Abuse: No Immunizations Up To Date Date of Pneumonia Vaccine: Aug 05, 2015 Past Medical History past medical history as discussed below Family Medical History Family History: 19 FATHER Cardiovascular disease Hypertension 19 MOTHER Cardiovascular disease Hypertension G8 SISTER Diabetes mellitus FH: cirrhosis Cardiovascular disease Constitutional: no symptoms reported, see HPI EENTM: see HPI, no symptoms reported Respiratory: no symptoms reported, see HPI Cardiovascular: see HPI, No chest pain, No edema, No Hx of Intervention, palpitations, No syncope, No vascular heart diseas, No other Gastrointestinal: no symptoms reported, see HPI Genitourinary: no symptoms reported, see HPI Musculoskeletal: no symptoms reported, see HPI Skin: no symptoms reported, see HPI Psychiatric/Neurological: No Symptoms Reported, See HPI Reviewed Test Results Reviewed Test Results Lab Laboratory Tests Test 03/19/17 19:04 03/20/17 04:20 Range/Units White Blood Count 9.3 6.8 4.3-11.0 10^3/uL Red Blood Count 4.65 3.83 L 4.35-5.85 10^6/uL Hemoglobin 14.1 11.5 11.5-16.0 G/DL Hematocrit 42 35 35-52 % Mean Corpuscular Volume 91 92 80-99 FL Mean Corpuscular Hemoglobin 30 30 25-34 PG Mean Corpuscular Hemoglobin Concent 33 33 32-36 G/DL Red Cell Distribution Width 14.8 H 14.6 H 10.0-14.5 % Platelet Count 275 195 130-400 10^3/uL Mean Platelet Volume 9.5 9.6 7.4-10.4 FL Neutrophils (%) (Auto) 64 56 42-75 % Lymphocytes (%) (Auto) 25 34 12-44 % Monocytes (%) (Auto) 8 8 0-12 % Eosinophils (%) (Auto) 2 3 0-10 % Basophils (%) (Auto) 1 0 0-10 % Neutrophils # (Auto) 6.0 3.8 1.8-7.8 X 10^3 Lymphocytes # (Auto) 2.3 2.3 1.0-4.0 X 10^3 Monocytes # (Auto) 0.8 0.5 0.0-1.0 X 10^3 Eosinophils # (Auto) 0.2 0.2 0.0-0.3 10^3/uL Basophils # (Auto) 0.1 0.0 0.0-0.1 10^3/uL Sodium Level 138 142 135-145 MMOL/L Potassium Level 3.6 3.7 3.6-5.0 MMOL/L Chloride Level 97 L 106 98-107 MMOL/L Carbon Dioxide Level 25 25 21-32 MMOL/L Anion Gap 16 H 11 5-14 MMOL/L Blood Urea Nitrogen 32 H 26 H 7-18 MG/DL Creatinine 1.25 0.84 0.60-1.30 MG/DL Estimat Glomerular Filtration Rate 42 > 60 BUN/Creatinine Ratio 26 31 Glucose Level 231 H 126 H 70-105 MG/DL Calcium Level 10.0 8.3 L 8.5-10.1 MG/DL Phosphorus Level 3.1 3.2 2.3-4.7 MG/DL Magnesium Level 1.8 1.5 L 1.8-2.4 MG/DL Total Bilirubin 0.5 0.1-1.0 MG/DL Aspartate Amino Transf (AST/SGOT) 23 5-34 U/L Alanine Aminotransferase (ALT/SGPT) 26 0-55 U/L Alkaline Phosphatase 89 40-136 U/L Troponin I < 0.30 <0.30 NG/ML B-Type Natriuretic Peptide 81.1 <100.0 PG/ML Total Protein 7.5 6.4-8.2 GM/DL Albumin 4.3 3.2-4.5 GM/DL Thyroid Stimulating Hormone (TSH) 2.73 0.35-4.94 UIU/ML Digoxin Level 0.50 L 0.80-2.00 NG/ML Physical Exam Vital Signs Vital Sign - Last 12Hours 03/19/17 19:00 Temp 98.2 Pulse 168 Resp 31 B/P (MAP) 132/87 Pulse Ox 97 Capillary Refill : Less Than 3 Seconds General Appearance: No Apparent Distress, WD/WN Eyes: Bilateral Eye Normal Inspection, Bilateral Eye PERRL, Bilateral Eye EOMI HEENT: PERRL/EOMI, TMs Normal, Normal ENT Inspection, Pharynx Normal Neck: Full Range of Motion, Normal Inspection, Non Tender, Supple, Carotid Bruit Respiratory: Chest Non Tender, Lungs Clear, Normal Breath Sounds, No Accessory Muscle Use, No Respiratory Distress Cardiovascular: Regular Rate, Rhythm, No Edema, No Gallop, No JVD, No Murmur, Normal Peripheral Pulses Gastrointestinal: Normal Bowel Sounds, No Organomegaly, No Pulsatile Mass, Non Tender, Soft Back: Normal Inspection, No CVA Tenderness, No Vertebral Tenderness Extremity: Normal Capillary Refill, Normal Inspection, Normal Range of Motion, Non Tender, No Calf Tenderness, No Pedal Edema Neurologic/Psychiatric: Alert, Oriented x3, No Motor/Sensory Deficits, Normal Mood/Affect Skin: Normal Color, Warm/Dry Lymphatic: No Adenopathy A/P-Cardiology Admission Diagnosis Palpitation Paroxysmal supraventricular tachycardia COPD Coronary artery disease Assessment/Plan Palpitation, secondary to tachycardia, back to sinus rhythm, feeling better at this time, okay for discharge and continue current medication, we discussed the possibility of ablation, patient is still prefer to wait, reporting that the episodes are infrequent at this time. Paroxysmal supraventricular tachycardia, had multiple episodes in the past, self -limited Usually, discussed with her regarding ablation but due to the fact that the episodes are infrequent and self-limited, she decided to continue with observation and conservative management, has been doing well. I will continue to monitor at this time Coronary artery disease, history of 3.012 mm bare-metal stent deployed in the circumflex artery done in 2008, last stress test was done in August 2016 which was reported as no ischemia or infarction with normal ejection fraction. continue on aspirin as an outpatient. COPD, using oxygen at night. seen by Dr. Chamberlain Bilateral carotid stenosis, moderate, seen by Dr. Ran Evans. Followed as an outpatient Intracranial aneurysm, involving the anterior communicating artery measuring 4.4 6 cm, seen and followed by Dr. Ran Evans. Hypertension, blood pressure is well controlled. Continue to monitor Hyperlipidemia, maintained on simvastatin 80 mg, monitor lipids as an outpatient Diabetes mellitus, followed by primary care physician BILL DENG MD Mar 20, 2017 08:28
[2017-03-20] MEDS ORDERED: HYDR25TA4 PO (08:38)
[2017-03-20] MEDS ORDERED: MAGN400T6 PO (08:38)
[2017-03-20] MEDS ORDERED: SIMV80TA2 PO (08:38)
[2017-03-20] MEDS ORDERED: METO50TA2 PO (08:38)
[2017-03-20] MEDS ORDERED: ASPI-983 PO (08:38)
[2017-03-20] MEDS ORDERED: DIGO125T PO (08:38)
[2017-03-20] MEDS ORDERED: CLOP75TA69 PO (08:38)
[2017-03-20] MEDS ORDERED: METF500T4 PO (08:38)
[2017-03-20] MEDS ORDERED: IPRA3AMP IH (08:38)
[2017-03-20] MEDS ORDERED: FLUT1DIS26 IH (08:38)
[2017-03-20] MEDS ORDERED: meTOprolol SUCCINATE 100 MG (TOPROL XL) TAB PO SCH (09:00)
[2017-03-20] MEDS ORDERED: HYDROCHLOROTHIAZIDE 25 MG (HCTZ) TAB PO SCH (09:00)
[2017-03-20] MEDS ORDERED: metFORMIN 500 MG (GLUCOPHAGE) TAB PO SCH (09:00)
[2017-03-20] MEDS ORDERED: CLOPIDOGREL 75 MG (PLAVIX) TABLET PO SCH (09:00)
[2017-03-20] MEDS ORDERED: meTOprolol TARTRATE 50 MG (LOPRESSOR) TAB PO SCH (09:00)
[2017-03-20] MEDS ORDERED: DIGOXIN 0.125 MG (LANOXIN) TAB PO SCH (09:00)
[2017-03-20] MEDS ORDERED: MAGNESIUM OXIDE (MAG-OX)400 MG TAB PO SCH (09:00)
[2017-03-20] MEDS ORDERED: RT-ALBUTEROL/IPRATROPIUM 3 ML (DUONEB) VIAL IH SCH (09:00)
[2017-03-20] MEDS ORDERED: ASPIRIN 81 MG CHEW (CHILDREN'S ASA) PO SCH (09:00)
--- NOTE | 2017-03-20 09:00 | Diagnostic Imaging Report ---
INDICATION: Atrial fibrillation. COMPARISON: 03/19/2017 FINDINGS: Single frontal radiographic view of the chest was obtained and demonstrates stable cardiac silhouette and pulmonary vasculature. There is calcified aortic atherosclerosis. Lungs continue to show hyperinflation, but otherwise clear. There is no large effusion or pneumothorax. Bony structures show no gross acute abnormalities. IMPRESSION: 1. Stable exam of the chest showing no acute cardiopulmonary process. 2. Background of COPD. Dictated by: Dictated on workstation # [id number]
--- NOTE | 2017-03-20 09:06 | Clinic Account Progress/Dx ---
Clinic Account Progress/Dx DIAGNOSIS: Date Seen by Provider: Mar 20, 2017 Time Seen by Provider: 08:00 Diagnosis Palpitation Paroxysmal supraventricular tachycardia COPD Coronary artery disease BILL DENG MD Mar 20, 2017 09:06
[2017-03-20] MEDS: NS IV 1000 ML 1,000 ML IV SCH (09:30)
[2017-03-20] MEDS ORDERED: RT-ADVAIR HFA 115/21 MCG PER PUFF IH SCH (20:00)
[2017-03-20] MEDS ORDERED: eZETimibe 10 MG (ZETIA) TABLET PO SCH (21:00)
[2017-03-20] MEDS ORDERED: SIMvastatin 40 MG (ZOCOR) TAB PO SCH ×2 (21:00)
[2017-03-20] MEDS ORDERED: ASPIRIN E.C. 81 MG (ECOTRIN) TAB PO SCH (21:00)
== END 2017-03-20 10:00 | disposition home or self-care (01) | DRG 310 ==
LOC: EDUNIT# 18:58 → ER 19:00 → ICU 20:00
PROVIDERS: ADMIT Internal Medicine; ATTEND Internal Medicine
DX: I47.1 Supraventricular tachycardia (principal); J44.9 Chronic obstructive pulmonary disease, unspecified; E11.9 Type 2 diabetes mellitus without complications; I25.10 Atherosclerotic heart disease of native coronary artery without angina pectoris; I65.23 Occlusion and stenosis of bilateral carotid arteries; I10 Essential (primary) hypertension; E78.5 Hyperlipidemia, unspecified; I67.1 Cerebral aneurysm, nonruptured; Z99.81 Dependence on supplemental oxygen; Z87.891 Personal history of nicotine dependence; Z95.5 Presence of coronary angioplasty implant and graft
CPT/HCPCS: 36415; 71010; 80048; 80053; 80162; 83735; 83880; 84100; 84443; 84484; 85025; 87081; 93005; 93041; 96361; 96365; 96372

== ENCOUNTER 2017-09-25 19:18 | Emergency (ER) | payer MEDICARE ==
[~2017-09-25] VITALS: Ht 167.6 cm; Wt 70.3 kg
[~2017-09-25 19:18] MED LIST changes: -ADENOSINE 6 MG/2 ML (ADENOCARD) VIAL IV ONE; +ASPI-983 PO; +CLOP75TA69 PO; +DIGO125T PO; -DILTIAZEM 25 MG/5 ML INJ (CARDIZEM) VIAL ONE; +FLUT1DIS26 IH; +HYDR25TA4 PO; +IPRA3AMP IH; +MAGN400T6 PO; +METF500T4 PO; +METO50TA15 PO; -NS IV 500 ML 500 ML ONE; +SIMV80TA2 PO
[2017-09-25] MEDS ORDERED: ADENOSINE 6 MG/2 ML (ADENOCARD) VIAL IV ONE ×3 (19:28→19:45)
[2017-09-25 19:35] LABS: BASOPHILS % (AUTO) 0 % (0-10); EOSINOPHILS # (AUTO) 0.2 10^3/uL (0.0-0.3); EOSINOPHILS % (AUTO) 2 % (0-10); HEMATOCRIT 41 % (35-52); HEMOGLOBIN 13.9 G/DL (11.5-16.0); LYMPHOCYTES # (AUTO) 2.2 X 10^3 (1.0-4.0); LYMPHOCYTES % (AUTO) 24 % (12-44); MEAN CORPUSCULAR HEMOGLOBIN 31 PG (25-34); MEAN CORPUSCULAR HGB CONC 34 G/DL (32-36); MEAN CORPUSCULAR VOLUME 91 FL (80-99); MEAN PLATELET VOLUME 9.5 FL (7.4-10.4); MONOCYTES # (AUTO) 0.9 X 10^3 (0.0-1.0); MONOCYTES % (AUTO) 10 % (0-12); NEUTROPHILS # (AUTO) 5.7 X 10^3 (1.8-7.8); NEUTROPHILS % (AUTO) 64 % (42-75); PLATELET COUNT 250 10^3/uL (130-400); RED BLOOD COUNT 4.45 10^6/uL (4.35-5.85); RED CELL DISTRIBUTION WIDTH 14.4 % (10.0-14.5); WHITE BLOOD COUNT 8.9 10^3/uL (4.3-11.0)
[2017-09-25 19:44] LABS: INR 0.9 (0.8-1.4); PROTHROMBIN TIME PATIENT 12.2 SEC (12.2-14.7)
--- NOTE | 2017-09-25 19:46 | ED Cardiac General ---
History of Present Illness General Stated Complaint: SVT Source: patient History of Present Illness Date Seen by Provider: Sep 25, 2017 Time Seen by Provider: 19:23 Initial Comments PT ARRIVES VIA POV STATES SHE BEGAN HAVING A RAPID HEART BEAT AROUND 45 MINUTES AGO, WHILE IN KITCHEN HAS HISTORY OF SVT MULTIPLE TIMES. LAST TIME WAS IN MAY 2017 NO CHEST PAIN HAS SLIGHT SHORTNESS OF BREATH, BUT HAS COPD AND IS TIME FOR INHALER/NEB TREATMENT NO SWEATS HAS CHRONIC SWELLING IN LEGS/FEET AND IS NO DIFFERENT TODAY SAW DR. DENG LAST WEEK FOR ROUTINE EXAM, NO CHANGE IN MEDICATION AND NO MISSED DOSES OF MEDICATIONS. IS ON ASPIRIN AND DIGOXIN. PCP: DR. SHI CLASSIFIER OPERATOR: DR. DENG Allergies and Home Medications Allergies Coded Allergies: codeine (Verified Allergy, Unknown, 01/03/17) Home Medications Aspirin 81 Mg Tablet.dr, 81 MG PO HS, (Reported) Digoxin 125 Mcg Tablet, 125 MCG PO DAILY, (Reported) Fluticasone/Salmeterol 1 Each Blst.w.dev, 1 PUFF IH BID, (Reported) Hydrochlorothiazide 25 Mg Tablet, 25 MG PO DAILY, (Reported) Ipratropium/Albuterol Sulfate 3 Ml Ampul.neb, 3 ML IH QID, (Reported) Magnesium Oxide 400 Mg Tablet, 400 MG PO DAILY, (Reported) Metformin HCl 500 Mg Tablet, 500 MG PO BID, (Reported) Metoprolol Tartrate 50 Mg Tablet, 50 MG PO TID, (Reported) Simvastatin 80 Mg Tablet, 80 MG PO HS, (Reported) Patient Home Medication List Home Medication List Reviewed: Yes Review of Systems Constitutional: no symptoms reported, No diaphoresis, No dizziness EENTM: No Symptoms Reported Respiratory: See HPI, Shortness of Air Cardiovascular: See HPI, Denies Chest Pain, Edema, Irregular Heart Rate, Denies Lightheadedness, Palpitations, Denies Syncope Gastrointestinal: No Symptoms Reported Genitourinary: No Symptoms Reported Musculoskeletal: no symptoms reported Skin: no symptoms reported Psychiatric/Neurological: No Symptoms Reported Endocrine: No Symptoms Reported Hematologic/Lymphatic: No Symptoms Reported Past Qnajrrf-Bqwsoz-Oafrhm Hx Patient Social History Alcohol Use: Denies Use Recreational Drug Use: No Smoking Status: Former Smoker (1 PPD, QUIT AROUND 2004?) Former Smoker, Quit: Mar 16, 2005 Recent Foreign Travel: No Contact w/Someone Who Travel: No Recent Hopitalizations: No Immunizations Up To Date PED Vaccines UTD: No Date of Pneumonia Vaccine: Aug 05, 2015 Seasonal Allergies Seasonal Allergies: No Surgeries History of Surgeries: Yes (CARDIAC CATH-STENT X 1 IN 2008; BILATERAL CATARACTS) Surgeries: Cardiac, Coronary Stent, Eye Surgery Respiratory History of Respiratory Disorde: Yes (O2 AT HS) Respiratory Disorders: COPD Currently Using CPAP: No Currently Using BIPAP: No Cardiovascular History of Cardiac Disorders: Yes (PSVT; CARDIAC CATH-STENT X 1 IN 2008, STRESS TEST 08/2016; BILATERAL CAROTID STENOSIS; 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 Genitourinary History of Genitourinary Disor: No Gastrointestinal History of Gastrointestinal Di: No Musculoskeletal History of Musculoskeletal Dis: Yes Musculoskeletal Disorders: Arthritis Endocrine History of Endocrine Disorders: Yes Endocrine Disorders: Diabetes, Non-Insulin dep HEENT History of HEENT Disorders: Yes (BILATERAL CATARACT SURGERY) HEENT Disorders: Cataract Loss of Vision: Denies Hearing Impairment: Denies Cancer History of Cancer: No Psychosocial History of Psychiatric Problem: No Integumentary History of Skin or Integumenta: No Blood Transfusions History of Blood Disorders: No Adverse Reaction to a Blood Tr: No Family Medical History Family Medial History: Cardiovascular disease 19 FATHER 19 MOTHER G8 SISTER Diabetes mellitus G8 SISTER FH: cirrhosis G8 SISTER Hypertension 19 FATHER 19 MOTHER Physical Exam Vital Signs Vital Signs - First Documented 09/25/17 19:23 Temp 98.3 Pulse 172 Resp 24 B/P (MAP) 150/108 (122) Pulse Ox 97 O2 Delivery Nasal Cannula O2 Flow Rate 2.00 Capillary Refill : General Appearance: No Apparent Distress, WD/WN Neck: Full Range of Motion, Normal Inspection, Non Tender, Supple, No JVD Respiratory: Normal Breath Sounds, No Accessory Muscle Use, No Respiratory Distress Cardiovascular: No Murmur, Tachycardia Gastrointestinal: Normal Bowel Sounds, No Organomegaly, No Pulsatile Mass, Non Tender, Soft Extremity: Normal Capillary Refill, Normal Inspection, Normal Range of Motion, Non Tender, No Calf Tenderness, Pedal Edema (1+ BILATERALLY) Neurologic/Psychiatric: Alert, Oriented x3, No Motor/Sensory Deficits, Normal Mood/Affect, form designer II-XII Norm as Tested Skin: Normal Color, Warm/Dry Progress/Results/Core Measures Results/Orders Lab Results Laboratory Tests Test 09/25/17 19:27 Range/Units White Blood Count 8.9 4.3-11.0 10^3/uL Red Blood Count 4.45 4.35-5.85 10^6/uL Hemoglobin 13.9 11.5-16.0 G/DL Hematocrit 41 35-52 % Mean Corpuscular Volume 91 80-99 FL Mean Corpuscular Hemoglobin 31 25-34 PG Mean Corpuscular Hemoglobin Concent 34 32-36 G/DL Red Cell Distribution Width 14.4 10.0-14.5 % Platelet Count 250 130-400 10^3/uL Mean Platelet Volume 9.5 7.4-10.4 FL Neutrophils (%) (Auto) 64 42-75 % Lymphocytes (%) (Auto) 24 12-44 % Monocytes (%) (Auto) 10 0-12 % Eosinophils (%) (Auto) 2 0-10 % Basophils (%) (Auto) 0 0-10 % Neutrophils # (Auto) 5.7 1.8-7.8 X 10^3 Lymphocytes # (Auto) 2.2 1.0-4.0 X 10^3 Monocytes # (Auto) 0.9 0.0-1.0 X 10^3 Eosinophils # (Auto) 0.2 0.0-0.3 10^3/uL Basophils # (Auto) 0.0 0.0-0.1 10^3/uL Prothrombin Time 12.2 12.2-14.7 SEC INR Comment 0.9 0.8-1.4 Activated Partial Thromboplast Time 29 24-35 SEC Sodium Level 137 135-145 MMOL/L Potassium Level 3.8 3.6-5.0 MMOL/L Chloride Level 96 L 98-107 MMOL/L Carbon Dioxide Level 29 21-32 MMOL/L Anion Gap 12 5-14 MMOL/L Blood Urea Nitrogen 27 H 7-18 MG/DL Creatinine 1.23 0.60-1.30 MG/DL Estimat Glomerular Filtration Rate 42 BUN/Creatinine Ratio 22 Glucose Level 276 H 70-105 MG/DL Calcium Level 9.8 8.5-10.1 MG/DL Magnesium Level 1.7 L 1.8-2.4 MG/DL Total Bilirubin 0.3 0.1-1.0 MG/DL Aspartate Amino Transf (AST/SGOT) 18 5-34 U/L Alanine Aminotransferase (ALT/SGPT) 26 0-55 U/L Alkaline Phosphatase 90 40-136 U/L Troponin I < 0.30 <0.30 NG/ML B-Type Natriuretic Peptide 53.5 <100.0 PG/ML Total Protein 7.3 6.4-8.2 GM/DL Albumin 4.3 3.2-4.5 GM/DL TSH Navarro Testing 2.61 0.35-4.94 UIU/ML Digoxin Level 0.45 L 0.80-2.00 NG/ML My Orders Orders - SUSAN MAR DO Saline Lock/Iv-Start (09/25/17 19:26) Ekg Tracing (09/25/17:26) O2 (09/25/17:) Monitor-Rhythm Ecg Trace Only (09/25/17:) BNP (09/25/17:) Cbc With Automated Diff (09/25/17:) Comprehensive Metabolic Panel (09/25/17:26) Magnesium (09/25/17:) Protime With Inr (09/25/17:) Partial Thromboplastin Time (09/25/17:) Thyroid Analyzer (09/25/17:) Troponin I (09/25/17:26) Chest 1 View, Ap/Pa Only (09/25/17:26) Adenosine Injection (Adenocard Injection (09/25/17 19:28) Ekg Tracing (09/25/17 19:38) Ekg Tracing (09/25/17 19:38) Adenosine Injection (Adenocard Injection (09/25/17 19:45) Adenosine Injection (Adenocard Injection (09/25/17 19:45) Digoxin (09/25/17 19:40) Digoxin Injection (Lanoxin Injection) (09/25/17 20:30) Medications Given in ED Current Medications Medications Dose Ordered Sig/Melanie Route Start Time Stop Time Status Last Admin Dose Admin Adenosine 6 mg ONCE ONCE IV 09/25/17 19:45 09/25/17 19:46 DC 09/25/17 19:32 6 MG Adenosine 12 mg ONCE ONCE IV 09/25/17 19:45 09/25/17 19:46 DC 09/25/17 19:34 12 MG Digoxin 0.25 mg ONCE ONCE IV 09/25/17 20:30 09/25/17 20:31 UNV 09/25/17 20:38 0.25 MG Vital Signs/I&O Vital Sign - Last 12Hours 09/25/17 09/25/17 19:23 19:25 Temp 98.3 Pulse 172 Resp 24 B/P (MAP) 150/108 (122) Pulse Ox 97 97 O2 Delivery Nasal Cannula Nasal Cannula O2 Flow Rate 2.00 2.00 Progress Note : Progress Note PT STATES ADENOSINE ALWAYS WORKS AND REQUESTS IT. HEART RATE 170 ON ARRIVAL--NARROW COMPLEX TACHYCARDIA. BP 150'S/100'S ON ARRIVAL. O2 SAT 95% ON ROOM AIR. NO DYSPNEA GIVEN 6 MG WITH FEW SECONDS OF SLOWED RATE, THEN RATE IMMEDIATELY BACK UP TO 170 GIVEN 12 MG WITH CONVERSION TO NSR, RATE AROUND 100 AND RESOLUTION OF SYMPTOMS. BP NORMAL AT 128/70 ECG Initial ECG Impression Date: Sep 25, 2017 Initial ECG Impression Time: 19:26 Initial ECG Rate: 169 Initial ECG Rhythm: SVT EKG : EKG Time: 19:30 Rate: 53 Comment AT TIME OF CONVERSION WITH ADENOSINE AT 1929 EKG #3 AT 1930-POST CONVERSION RATE 102, NSR. NO ACUTE CHANGES. Diagnostic Imaging Comments CXR--NO ACUTE PROCESS, PER RADIOLOGIST REPORT @ 2051 Reviewed: Reviewed by Me Critical Care Note Critical Care Total Time (minutes) 20 MINUTES Progress CARDIOVERTED WITH ADENOSINE NO COMPLICATIONS PT TOLERATED WELL Departure Communication (Admissions) Progress Notes 2025/2026--PAGED/SPOKE WITH DR. SIBLEY. ADVISES TO GIVE DOSE OF DIGOXIN 0.25 MG IV AND HAVE PT FOLLOW UP WITH DR. DENG TOMORROW PT IS ANXIOUS TO GO HOME. Impression Impression: Primary Impression: PSVT (paroxysmal supraventricular tachycardia) Additional Impression: Hyperglycemia due to type 2 diabetes mellitus Disposition: 01 HOME, SELF-CARE Condition: Improved Departure-Patient Inst. Referrals: SHARON SHI MD,BILL RAINEY,LOCAL PHYSICIAN (PCP) Primary Care Physician Patient Instructions: Paroxysmal Supraventricular Tachycardia (DC) Add. Discharge Instructions: CONTINUE YOUR REGULAR MEDICATIONS PRESCRIBED FOLLOW UP WITH DR. DENG TOMORROW FOR FURTHER CARE SUSAN MAR DO Sep 25, 2017 19:46
[2017-09-25 19:52] LABS: ALANINE AMINOTRANSFERASE 26 U/L (0-55); ALBUMIN 4.3 GM/DL (3.2-4.5); ALKALINE PHOSPHATASE 90 U/L (40-136); BILIRUBIN,TOTAL 0.3 MG/DL (0.1-1.0); BUN/CREATININE RATIO 22; CALCIUM 9.8 MG/DL (8.5-10.1); CARBON DIOXIDE 29 MMOL/L (21-32); CHLORIDE 96 MMOL/L (98-107); CREATININE SERUM 1.23 MG/DL (0.60-1.30); GFR ESTIMATED 42; GLUCOSE 276 MG/DL (70-105); MAGNESIUM 1.7 MG/DL (1.8-2.4); POTASSIUM 3.8 MMOL/L (3.6-5.0); SODIUM 137 MMOL/L (135-145); TOTAL PROTEIN 7.3 GM/DL (6.4-8.2)
--- NOTE | 2017-09-25 20:03 | Diagnostic Imaging Report ---
EXAM: CHEST 1 VIEW, AP/PA ONLY INDICATION: Arrhythmia. COMPARISON: Chest radiograph 06/02/2017. FINDINGS: Normal heart size and pulmonary vascularity. Calcified aorta. No focal pulmonary opacity, pleural effusion or pneumothorax. No acute osseous findings. IMPRESSION: No acute cardiopulmonary findings. Dictated by: Dictated on workstation # [id number]
[2017-09-25 20:11] LABS: TSH (THYROID ANALYZER) 2.61 UIU/ML (0.35-4.94)
[2017-09-25] MEDS ORDERED: DIGOXIN 0.25 MG/ML (LANOXIN) 2 ML AMP IV ONE (20:30)
[2017-09-25] MEDS ORDERED: DIGOXIN 0.25 MG/ML (LANOXIN) 2 ML AMP ONE (20:34)
[2017-09-25 20:51] VITALS: BP 146/72
== END 2017-09-25 20:51 | disposition home or self-care (01) ==
LOC: EDUNIT# 19:18 → ER 19:20
DX: I47.1 Supraventricular tachycardia (principal); E11.65 Type 2 diabetes mellitus with hyperglycemia; I25.10 Atherosclerotic heart disease of native coronary artery without angina pectoris; E78.00 Pure hypercholesterolemia, unspecified; I10 Essential (primary) hypertension; J44.9 Chronic obstructive pulmonary disease, unspecified; Z87.891 Personal history of nicotine dependence; Z95.5 Presence of coronary angioplasty implant and graft; Z79.82 Long term (current) use of aspirin; Z79.84 Long term (current) use of oral hypoglycemic drugs; Z88.5 Allergy status to narcotic agent
CPT/HCPCS: 36415; 71045; 80053; 80162; 83735; 83880; 84443; 84484; 85025; 85610; 85730; 93041

== ENCOUNTER 2017-10-14 20:52 | Emergency (ER) | payer MEDICARE ==
[~2017-10-14] VITALS: Ht 167.6 cm; Wt 70.3 kg
--- NOTE | 2017-10-14 21:32 | ED Cardiac General ---
History of Present Illness General Chief Complaint: Cardiac/General Problems Stated Complaint: SVT Nursing Triage Note: Pt. advises she has a hx. of SVT. She states she began feeling her heart race approximately 30minutes prior to arrival. Source: patient Exam Limitations: no limitations History of Present Illness Date Seen by Provider: Oct 14, 2017 Time Seen by Provider: 20:52 Initial Comments Patient presents to emergency room with chief complaint of SVT. She has a known history of SVT and states she has had tachycardia for the past 45 minutes. She denies chest pain, shortness of air, or other secondary symptoms. Patient was noted to have a narrow complex tachycardia on the monitor. Upon assessment Valsalva resulted in conversion to sinus rhythm. Patient then requested no further workup be pursued. I suggested monitoring the patient for at least 15 minutes to ensure there was no rebound of arrhythmia. Allergies and Home Medications Allergies Coded Allergies: codeine (Verified Allergy, Unknown, 01/03/17) Home Medications Aspirin 81 Mg Tablet.dr, 81 MG PO HS, (Reported) Digoxin 125 Mcg Tablet, 125 MCG PO DAILY, (Reported) Fluticasone/Salmeterol 1 Each Blst.w.dev, 1 PUFF IH BID, (Reported) Hydrochlorothiazide 25 Mg Tablet, 25 MG PO DAILY, (Reported) Ipratropium/Albuterol Sulfate 3 Ml Ampul.neb, 3 ML IH QID, (Reported) Magnesium Oxide 400 Mg Tablet, 400 MG PO DAILY, (Reported) Metformin HCl 500 Mg Tablet, 500 MG PO BID, (Reported) Metoprolol Tartrate 50 Mg Tablet, 50 MG PO TID, (Reported) Simvastatin 80 Mg Tablet, 80 MG PO HS, (Reported) Patient Home Medication List Home Medication List Reviewed: Yes Review of Systems Constitutional: no symptoms reported EENTM: No Symptoms Reported Respiratory: No Symptoms Reported Cardiovascular: See HPI Gastrointestinal: No Symptoms Reported Genitourinary: No Symptoms Reported Musculoskeletal: no symptoms reported Skin: no symptoms reported Psychiatric/Neurological: No Symptoms Reported Endocrine: No Symptoms Reported Past Hzzfamh-Kvmnjv-Lktxfy Hx Patient Social History Alcohol Use: Denies Use Recreational Drug Use: No Smoking Status: Former Smoker Former Smoker, Quit: Mar 16, 2005 Recent Foreign Travel: No Contact w/Someone Who Travel: No Recent Infectious Disease Expo: No Recent Hopitalizations: No Physical Abuse: No Sexual Abuse: No Immunizations Up To Date PED Vaccines UTD: No Date of Pneumonia Vaccine: Aug 05, 2015 Date of Influenza Vaccine: Apr 23, 2017 Seasonal Allergies Seasonal Allergies: No Surgeries History of Surgeries: Yes (CARDIAC CATH-STENT X 1 IN 2008; BILATERAL CATARACTS) Surgeries: Cardiac, Coronary Stent, Eye Surgery Respiratory History of Respiratory Disorde: Yes (O2 AT HS) Respiratory Disorders: COPD Currently Using CPAP: No Currently Using BIPAP: No Cardiovascular History of Cardiac Disorders: Yes (SVT) Cardiac Disorders: Aneurysm, Coronary Artery Disease, High Cholesterol, Hypertension, Irregular Heartbeat, Peripheral Vascular Neurological History of Neurological Disord: 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) 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 System : No Sexually Transmitted Disease: No HIV/AIDS: No PLUGMAN History: Menopausal Genitourinary History of Genitourinary Disor: No Gastrointestinal History of Gastrointestinal Di: No Musculoskeletal History of Musculoskeletal Dis: Yes Musculoskeletal Disorders: Arthritis Endocrine History of Endocrine Disorders: Yes Endocrine Disorders: Diabetes, Non-Insulin dep HEENT History of HEENT Disorders: Yes (BILATERAL CATARACT SURGERY) HEENT Disorders: Cataract Loss of Vision: Denies Hearing Impairment: Denies Cancer History of Cancer: No Psychosocial History of Psychiatric Problem: No Suicide Risk Score: 0 Integumentary History of Skin or Integumenta: No Blood Transfusions History of Blood Disorders: No Adverse Reaction to a Blood Tr: No Family Medical History Family Medial History: Cardiovascular disease 19 FATHER 19 MOTHER G8 SISTER Diabetes mellitus G8 SISTER FH: cirrhosis G8 SISTER Hypertension 19 FATHER 19 MOTHER Physical Exam Vital Signs Vital Signs - First Documented 10/14/17 20:56 Pulse 150 Resp 16 B/P (MAP) 119/98 (105) Pulse Ox 98 O2 Delivery Room Air Capillary Refill : Less Than 3 Seconds General Appearance: No Apparent Distress, WD/WN HEENT: PERRL/EOMI, Normal ENT Inspection Respiratory: Normal Breath Sounds, No Respiratory Distress Cardiovascular: Regular Rate, Rhythm, No Edema Extremity: Normal Inspection, No Pedal Edema Neurologic/Psychiatric: Alert, Oriented x3, No Motor/Sensory Deficits, Normal Mood/Affect, president trust company II-XII Norm as Tested Skin: Normal Color, Warm/Dry Progress/Results/Core Measures Results/Orders My Orders Orders - LUCRETIA KOHLER MD Ekg Tracing (10/14/17 21:11) Monitor-Rhythm Ecg Trace Only (10/14/17 21:11) Vital Signs/I&O Vital Sign - Last 12Hours 10/14/17 10/14/17 20:56 21:37 Pulse 150 86 Resp 16 14 B/P (MAP) 119/98 (105) 119/98 Pulse Ox 98 98 O2 Delivery Room Air Room Air Blood Pressure Mean: 105 Progress Note : Progress Note Patient converted to normal sinus rhythm with Valsalva maneuver. She remained in sinus rhythm throughout the remainder of her ER stay. Since she promptly converted to sinus rhythm, she requested no IVs and no further workup. She was monitored for at least 15 minutes after conversion and then requested dismissal. She was dismissed in good condition. See discharge instructions. We discussed Valsalva and seal dive as potential abortive measures to use at home. ECG Initial ECG Impression Date: Oct 14, 2017 Initial ECG Impression Time: 20:54 Initial ECG Rate: 84 Initial ECG Rhythm: Normal Sinus Initial ECG Intervals: Normal Comment Normal sinus rhythm with no ST elevation or depression. No abnormal intervals or axis deviation. Departure Impression Impression: Primary Impression: PSVT (paroxysmal supraventricular tachycardia) Disposition: 01 HOME, SELF-CARE Condition: Improved Departure-Patient Inst. Decision time for Depature: 21:31 Referrals: BILL DENG MD (PCP/Family) Primary Care Physician Patient Instructions: Paroxysmal Supraventricular Tachycardia (DC) Add. Discharge Instructions: Continue your medications as previously prescribed. If SVT returns, you may try Valsalva maneuver or ice to the face as we discussed in the emergency room. Return to care if these measures do not abort the SVT. Follow-up with your cloth bleaching supervisor and/or primary care provider next week. All discharge instructions reviewed with patient and/or family. Voiced understanding. Copy Copies To 1: BILL DENG MD, JOSHUA T MD Oct 14, 2017 21:32
[2017-10-14 21:37] VITALS: BP 119/98
== END 2017-10-14 21:38 | disposition home or self-care (01) ==
LOC: EDUNIT# 20:52 → ER 20:54
DX: I47.1 Supraventricular tachycardia (principal); E11.9 Type 2 diabetes mellitus without complications; I25.10 Atherosclerotic heart disease of native coronary artery without angina pectoris; I10 Essential (primary) hypertension; J44.9 Chronic obstructive pulmonary disease, unspecified; Z95.5 Presence of coronary angioplasty implant and graft; Z87.891 Personal history of nicotine dependence; Z79.82 Long term (current) use of aspirin; Z79.84 Long term (current) use of oral hypoglycemic drugs; Z88.5 Allergy status to narcotic agent
CPT/HCPCS: 93005; 93041

== ENCOUNTER → 2017-11-28 | Outpatient (CLI) | payer MEDICARE ==
[~2017-11-28] MED LIST changes: +DIGO250T PO; -METF500T4 PO; +METF500T5 PO; +POTA20TA15 PO
--- NOTE | 2017-11-28 15:35 | Diagnostic Imaging Report ---
INDICATION: COPD. COMPARISON: 09/25/2017. FINDINGS: Two views of the chest are obtained. Heart size is normal. The pulmonary vessels appear unremarkable. There is no pneumothorax, mediastinal widening, or pleural fluid. Lungs are hyperinflated suggestive of COPD. The lungs are otherwise clear. There are degenerative changes in the spine. IMPRESSION: No acute cardiopulmonary abnormality is seen. No significant interval change from the prior study. Dictated by: Dictated on workstation # [id number]
== END ==
LOC: RAD 14:46
PROVIDERS: ATTEND Nurse Practitioner Family
DX: J44.9 Chronic obstructive pulmonary disease, unspecified (principal)
CPT/HCPCS: 71046

== ENCOUNTER → 2017-12-11 | Outpatient (CLI) | payer MEDICARE ==
[~2017-12-11] MED LIST changes: +RT-ALBUTEROL SULF 2.5 MG/3 ML PRE-MIX VIAL INH ONE; +RT-ALBUTEROL SULF 2.5 MG/3 ML PRE-MIX VIAL ONE
== END ==
LOC: RT 13:36
PROVIDERS: ATTEND Nurse Practitioner Family
DX: J44.9 Chronic obstructive pulmonary disease, unspecified (principal); R06.00 Dyspnea, unspecified
CPT/HCPCS: 94060; 94726; 94729

== ENCOUNTER 2018-01-12 20:31 | Emergency (ER) | payer MEDICARE ==
[~2018-01-12] VITALS: Ht 167.6 cm; Wt 70.5 kg
[~2018-01-12 20:31] MED LIST changes: -DIGO250T PO; -POTA20TA15 PO; -RT-ALBUTEROL SULF 2.5 MG/3 ML PRE-MIX VIAL INH ONE; -RT-ALBUTEROL SULF 2.5 MG/3 ML PRE-MIX VIAL ONE
[2018-01-12] MEDS ORDERED: NS IV 1000 ML 1,000 ML IV SCH (20:37)
[2018-01-12] MEDS ORDERED: NS IV 1000 ML 1,000 ML ONE (20:38)
[2018-01-12] MEDS ORDERED: ADENOSINE 6 MG/2 ML (ADENOCARD) VIAL IV ONE ×2 (20:40→20:45)
[2018-01-12 20:44] LABS: BASOPHILS % (AUTO) 0 % (0-10); EOSINOPHILS # (AUTO) 0.2 10^3/uL (0.0-0.3); EOSINOPHILS % (AUTO) 2 % (0-10); HEMATOCRIT 41 % (35-52); HEMOGLOBIN 14.5 G/DL (11.5-16.0); LYMPHOCYTES # (AUTO) 2.4 X 10^3 (1.0-4.0); LYMPHOCYTES % (AUTO) 28 % (12-44); MEAN CORPUSCULAR HEMOGLOBIN 32 PG (25-34); MEAN CORPUSCULAR HGB CONC 35 G/DL (32-36); MEAN CORPUSCULAR VOLUME 90 FL (80-99); MEAN PLATELET VOLUME 9.2 FL (7.4-10.4); MONOCYTES # (AUTO) 0.8 X 10^3 (0.0-1.0); MONOCYTES % (AUTO) 9 % (0-12); NEUTROPHILS # (AUTO) 5.2 X 10^3 (1.8-7.8); NEUTROPHILS % (AUTO) 60 % (42-75); PLATELET COUNT 250 10^3/uL (130-400); RED BLOOD COUNT 4.57 10^6/uL (4.35-5.85); RED CELL DISTRIBUTION WIDTH 14.3 % (10.0-14.5); WHITE BLOOD COUNT 8.6 10^3/uL (4.3-11.0)
[2018-01-12] MEDS ORDERED: ASPIRIN 81 MG CHEW (CHILDREN'S ASA) PO ONE (20:45)
[2018-01-12 20:59] LABS: INR 0.9 (0.8-1.4); PROTHROMBIN TIME PATIENT 12.3 SEC (12.2-14.7)
--- NOTE | 2018-01-12 21:00 | ED Cardiac General ---
History of Present Illness General Chief Complaint: Cardiac/General Problems Stated Complaint: SVT Nursing Triage Note: patient reports palpitations x 40 minutes Source: patient Exam Limitations: no limitations History of Present Illness Date Seen by Provider: Jan 12, 2018 Time Seen by Provider: 20:30 Initial Comments The patient presents to the ER by private conveyance with a chief complaint she' s having some palpitations and feeling of racing heart. She is well-known to this provider and has a long-standing history of SVT. Past she has done well with Adenocard. She is not having any chest pain nausea vomiting or chills. She does have a little bit of a sweat. She says she tried multiple vasovagal maneuvers without success at home. The symptoms started about 45 minutes prior to arrival. She has a history of heart attack with stents followed by Dr. Sherman. She is on aspirin but not taking any Plavix. She also chewed up 4 baby aspirins before she came. She does not take Plavix or any blood thinners. Allergies and Home Medications Allergies Coded Allergies: codeine (Verified Allergy, Unknown, 01/03/17) Home Medications Aspirin 81 Mg Tablet.dr, 81 MG PO HS, (Reported) Digoxin 125 Mcg Tablet, 125 MCG PO DAILY, (Reported) Fluticasone/Salmeterol 1 Each Blst.w.dev, 1 PUFF IH BID, (Reported) Hydrochlorothiazide 25 Mg Tablet, 25 MG PO DAILY, (Reported) Ipratropium/Albuterol Sulfate 3 Ml Ampul.neb, 3 ML IH QID, (Reported) Magnesium Oxide 400 Mg Tablet, 400 MG PO DAILY, (Reported) Metformin HCl 500 Mg Tablet, 500 MG PO BID, (Reported) Metoprolol Tartrate 50 Mg Tablet, 50 MG PO TID, (Reported) Simvastatin 80 Mg Tablet, 80 MG PO HS, (Reported) Patient Home Medication List Home Medication List Reviewed: Yes Review of Systems Constitutional: No chills; diaphoresis; No fever, No malaise EENTM: No Blurred Vision, No Double Vision Respiratory: Denies Cough, Denies Shortness of Air Cardiovascular: Denies Chest Pain; Irregular Heart Rate; Denies Lightheadedness ; Palpitations; Denies Syncope Gastrointestinal: Denies Constipated, Denies Diarrhea, Denies Nausea Genitourinary: Denies Burning, Denies Discharge, Denies Drainage Musculoskeletal: No back pain, No joint pain Psychiatric/Neurological: Denies Headache, Denies Numbness, Denies Paresthesia Past Aktsxjs-Jrmvwp-Ptjaog Hx Patient Social History Alcohol Use: Denies Use Recreational Drug Use: No Smoking Status: Former Smoker Former Smoker, Quit: Mar 16, 2005 Recent Foreign Travel: No Contact w/Someone Who Travel: No Recent Infectious Disease Expo: No Recent Hopitalizations: No Immunizations Up To Date PED Vaccines UTD: No Date of Pneumonia Vaccine: Aug 05, 2015 Date of Influenza Vaccine: Apr 23, 2017 Seasonal Allergies Seasonal Allergies: No Past Medical History Surgeries: Yes (CARDIAC CATH-STENT X 1 IN 2008; BILATERAL CATARACTS) Cardiac, Coronary Stent, Eye Surgery Respiratory: Yes (O2 AT HS) COPD Currently Using CPAP: No Currently Using BIPAP: No Cardiac: Yes (SVT) Aneurysm, Coronary Artery Disease, High Cholesterol, Hypertension, Irregular Heartbeat, Peripheral Vascular 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) 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 Sexually Transmitted Disease: No HIV/AIDS: No Genitourinary: No Gastrointestinal: No Musculoskeletal: Yes Arthritis Endocrine: Yes Diabetes, Non-Insulin dep HEENT: Yes (BILATERAL CATARACT SURGERY) Cataract Loss of Vision: Denies Hearing Impairment: Denies Cancer: No Psychosocial: No Integumentary: No Blood Disorders: No Adverse Reaction/Blood Tranf: No Family Medical History Cardiovascular disease 19 FATHER 19 MOTHER G8 SISTER Diabetes mellitus G8 SISTER FH: cirrhosis G8 SISTER Hypertension 19 FATHER 19 MOTHER Physical Exam Vital Signs Vital Signs - First Documented 01/12/18 20:36 Temp 98.2 Pulse 160 Resp 12 B/P (MAP) 142/102 (115) Pulse Ox 96 Capillary Refill : Less Than 3 Seconds General Appearance: No Apparent Distress, WD/WN HEENT: PERRL/EOMI, TMs Normal, Normal ENT Inspection, Pharynx Normal, Moist Mucous Membranes Neck: Full Range of Motion, Non Tender, Supple Respiratory: Chest Non Tender, Lungs Clear, Normal Breath Sounds, No Accessory Muscle Use, No Respiratory Distress Cardiovascular: No Edema, Tachycardia Gastrointestinal: Normal Bowel Sounds, Non Tender, Soft Neurologic/Psychiatric: Alert, Oriented x3, Normal Mood/Affect Skin: Normal Color, Warm/Dry Progress/Results/Core Measures Results/Orders Lab Results Laboratory Tests Test 01/12/18 20:35 Range/Units White Blood Count 8.6 4.3-11.0 10^3/uL Red Blood Count 4.57 4.35-5.85 10^6/uL Hemoglobin 14.5 11.5-16.0 G/DL Hematocrit 41 35-52 % Mean Corpuscular Volume 90 80-99 FL Mean Corpuscular Hemoglobin 32 25-34 PG Mean Corpuscular Hemoglobin Concent 35 32-36 G/DL Red Cell Distribution Width 14.3 10.0-14.5 % Platelet Count 250 130-400 10^3/uL Mean Platelet Volume 9.2 7.4-10.4 FL Neutrophils (%) (Auto) 60 42-75 % Lymphocytes (%) (Auto) 28 12-44 % Monocytes (%) (Auto) 9 0-12 % Eosinophils (%) (Auto) 2 0-10 % Basophils (%) (Auto) 0 0-10 % Neutrophils # (Auto) 5.2 1.8-7.8 X 10^3 Lymphocytes # (Auto) 2.4 1.0-4.0 X 10^3 Monocytes # (Auto) 0.8 0.0-1.0 X 10^3 Eosinophils # (Auto) 0.2 0.0-0.3 10^3/uL Basophils # (Auto) 0.0 0.0-0.1 10^3/uL Prothrombin Time 12.3 12.2-14.7 SEC INR Comment 0.9 0.8-1.4 Activated Partial Thromboplast Time 31 24-35 SEC Sodium Level 139 135-145 MMOL/L Potassium Level 3.3 L 3.6-5.0 MMOL/L Chloride Level 96 L 98-107 MMOL/L Carbon Dioxide Level 27 21-32 MMOL/L Anion Gap 16 H 5-14 MMOL/L Blood Urea Nitrogen 36 H 7-18 MG/DL Creatinine 1.23 0.60-1.30 MG/DL Estimat Glomerular Filtration Rate 42 BUN/Creatinine Ratio 29 Glucose Level 141 H 70-105 MG/DL Calcium Level 10.1 8.5-10.1 MG/DL Magnesium Level 2.4 1.8-2.4 MG/DL Total Bilirubin 0.4 0.1-1.0 MG/DL Aspartate Amino Transf (AST/SGOT) 18 5-34 U/L Alanine Aminotransferase (ALT/SGPT) 23 0-55 U/L Alkaline Phosphatase 81 40-136 U/L Myoglobin 181.4 H 10.0-92.0 NG/ML Troponin I < 0.30 <0.30 NG/ML B-Type Natriuretic Peptide 48.0 <100.0 PG/ML Total Protein 7.3 6.4-8.2 GM/DL Albumin 4.6 H 3.2-4.5 GM/DL Digoxin Level 0.51 L 0.80-2.00 NG/ML My Orders Orders - SHERRIE,RUBY J Chest 1 View, Ap/Pa Only (01/12/18 20:33) Ekg Tracing (01/12/18:33) Cbc With Automated Diff (01/12/18:) Protime With Inr (01/12/18:) Magnesium (01/12/18:) Cardiac Profile 1 (01/12/18:) Comprehensive Metabolic Panel (01/12/18:33) Myoglobin Serum (01/12/18:33) Partial Thromboplastin Time (01/12/18:) BNP (01/12/18 20:33) O2 (01/12/18 20:33) Monitor-Rhythm Ecg Trace Only (01/12/18:33) Lipid Panel (01/13/18 06:00) Aspirin Chewable Tablet (Baby Aspirin Ch (01/12/18 20:45) Saline Lock/Iv-Start (01/12/18 20:33) Adenosine Injection (Adenocard Injection (01/12/18 20:45) Saline Lock/Iv-Start (01/12/18 20:37) Ns Iv 1000 Ml (Sodium Chloride 0.9%) (01/12/18 20:37) Ns Iv 1000 Ml (Sodium Chloride 0.9%) (01/12/18 20:38) Adenosine Injection (Adenocard Injection (01/12/18 20:40) Ekg Tracing (01/12/18 20:46) Digoxin (01/12/18 21:03) Ekg Tracing (01/12/18 21:03) Potassium Chloride (Tablet) (K Dur Table (01/12/18 21:45) Medications Given in ED Current Medications Medications Dose Ordered Sig/Melanie Route Start Time Stop Time Status Last Admin Dose Admin Adenosine 6 mg ONCE ONCE IV 01/12/18 20:45 01/12/18 20:46 DC 01/12/18 20:41 6 MG Vital Signs/I&O 01/12/18 20:36 Temp 98.2 Pulse 160 Resp 12 B/P (MAP) 142/102 (115) Pulse Ox 96 Blood Pressure Mean: 115 Progress Progress Note : Time: 21:32 Progress Note The patient's feeling much better now. Were any give her a single tablet of potassium on the way out the door after discussing her case with cardiology. Digoxin noted to be low at 0.51. Initial ECG Impression Date: Jan 12, 2018 Initial ECG Impression Time: 20:35 Initial ECG Rate: 160 Initial ECG Rhythm: SVT Initial ECG Intervals: QT (438) Initial ECG Impression: SVT Initial ECG Comparisson: Changed Comment SVT narrow complex EKG #1: EKG Time: 20:41 Rate: 107 Rhythm: Normal Sinus Intervals: MS (230) ECG Comparisson: Changed ECG Impression: Normal Comment Demonstrates short pause followed by conversion to sinus rhythm. Mild respiratory artifact. No significant ST elevation or depression. EKG #2: EKG Time: 20:59 Rate: 88 Rhythm: Normal Sinus Intervals: Normal ECG Comparisson: Unchanged ECG Impression: Normal Comment Normal sinus rhythm without ST elevation or depression. Diagnostic Imaging Diagonstic Imaging: Xray Plain Films/CT/US/NM/MRI: chest (1v) Comments Unremarkable 1 view chest x-ray without acute cardiopulmonary processes noted. NAME: JENNIE JAMES MED REC#: [id number] PT STATUS: REG ER : 1940 PHYSICIAN: RUBY BALDERAS MD ADMIT DATE: 01/12/18/ER Draft Date of Exam:01/12/18 CHEST 1 VIEW, AP/PA ONLY EXAMINATION: Portable chest. INDICATION: Palpitations. COMPARISON: November 2007. FINDINGS: The appearance of the chest is stable. No focal infiltrate or effusion demonstrated. There is no pneumothorax. The heart size and mediastinal contours are appropriate without evidence of failure. Chronic interstitial changes within the lungs are unchanged. IMPRESSION: Background features of COPD without radiographic evidence of an acute superimposed cardiopulmonary process. Dictated on workstation # [id number] Dict: 01/12/182103 Trans: 01/12/182111 [facility] [id number] Interpreted by: REBECCA WAY MD Electronically signed by: Reviewed: Reviewed by Me Consults : Consulting Physician: LISSET SIBLEY MD [facility] Consults Notes Discussed case lab EKG imaging and findings after intervention with Adenocard. He agrees with giving potassium now and he recommended at least 2 more doses. 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 Critical Care Note Critical Care Start Time: 20:30 Stop Time: 23:50 Total Time (minutes) 20 mins Progress EKG was obtained showing a narrow complex regular tachycardia consistent with supraventricular tachycardia. Patient was placed in recumbent position and a liter fluids were started and she was given a question of 6 mg Adenocard to which she converted into a sinus rhythm around 100. Patient says her symptoms were improving. We'll obtain labs to include troponin, CBC looking for anemia's or any other cause for her current SVT episode. We will also obtain a digoxin level. Departure Impression Primary Impression: Supraventricular tachycardia Additional Impression: Hypokalemia Disposition: HOME, SELF-CARE Condition: Improved Departure-Patient Inst. Referrals: SHARON SHI MD (PCP/Family) Primary Care Physician Patient Instructions: Supraventricular Tachycardia (SVT) Add. Discharge Instructions: Take 20 mEq of potassium twice a day for the next 2 days. Double your digoxin to 0.25 mg daily until you see your data migration lead next week. All discharge instructions reviewed with patient and/or family. Voiced understanding. Scripts Digoxin (Digoxin) 250 Mcg Tablet 250 MCG PO DAILY for 14 Days, #14 TAB 0 Refills Prov: RUBY BALDERAS 01/12/18 Potassium Chloride (Potassium Chloride) 20 Meq Tab.er.prt 20 MEQ PO BID for 2 Days, #4 CAP 0 Refills Prov: RUBY BALDERAS 01/12/18 Copy Copies To 1: SHARON SHI MD; BILL SHERMAN MD, TITUS J Jan 12, 2018 21:00
--- NOTE | 2018-01-12 21:13 | Diagnostic Imaging Report ---
EXAMINATION: Portable chest. INDICATION: Palpitations. COMPARISON: November 2007. FINDINGS: The appearance of the chest is stable. No focal infiltrate or effusion demonstrated. There is no pneumothorax. The heart size and mediastinal contours are appropriate without evidence of failure. Chronic interstitial changes within the lungs are unchanged. IMPRESSION: Background features of COPD without radiographic evidence of an acute superimposed cardiopulmonary process. Dictated by: Dictated on workstation # [id number]
[2018-01-12 21:26] LABS: ALANINE AMINOTRANSFERASE 23 U/L (0-55); ALBUMIN 4.6 GM/DL (3.2-4.5); ALKALINE PHOSPHATASE 81 U/L (40-136); BILIRUBIN,TOTAL 0.4 MG/DL (0.1-1.0); BUN/CREATININE RATIO 29; CALCIUM 10.1 MG/DL (8.5-10.1); CARBON DIOXIDE 27 MMOL/L (21-32); CHLORIDE 96 MMOL/L (98-107); CREATININE SERUM 1.23 MG/DL (0.60-1.30); GFR ESTIMATED 42; GLUCOSE 141 MG/DL (70-105); MAGNESIUM 2.4 MG/DL (1.8-2.4); POTASSIUM 3.3 MMOL/L (3.6-5.0); SODIUM 139 MMOL/L (135-145); TOTAL PROTEIN 7.3 GM/DL (6.4-8.2)
[2018-01-12 21:28] LABS: MYOGLOBIN SERUM 181.4 NG/ML (10.0-92.0)
[2018-01-12] MEDS ORDERED: DIGOXIN 0.25 MG (LANOXIN) TAB PO STA (21:34)
[2018-01-12] MEDS ORDERED: POTA20TA15 PO (21:42)
[2018-01-12] MEDS ORDERED: DIGO250T PO (21:42)
[2018-01-12] MEDS ORDERED: KCL 20 MEQ TAB (K-DUR) PO ONE (21:45)
[2018-01-12 21:55] VITALS: BP 124/59
== END 2018-01-12 21:55 | disposition home or self-care (01) ==
LOC: EDUNIT# 20:31 → ER 20:32
DX: I47.1 Supraventricular tachycardia (principal); E87.6 Hypokalemia; J44.9 Chronic obstructive pulmonary disease, unspecified; I25.10 Atherosclerotic heart disease of native coronary artery without angina pectoris; E11.59 Type 2 diabetes mellitus with other circulatory complications; I73.9 Peripheral vascular disease, unspecified; I10 Essential (primary) hypertension; E78.00 Pure hypercholesterolemia, unspecified; Z82.49 Family history of ischemic heart disease and other diseases of the circulatory system; Z88.5 Allergy status to narcotic agent; Z79.82 Long term (current) use of aspirin; Z79.51 Long term (current) use of inhaled steroids; Z79.84 Long term (current) use of oral hypoglycemic drugs; Z87.891 Personal history of nicotine dependence; Z95.5 Presence of coronary angioplasty implant and graft
CPT/HCPCS: 36415; 71045; 80053; 80162; 83735; 83874; 83880; 84484; 85025; 85610; 85730; 93005; 93041

== ENCOUNTER 2018-03-27 08:49 | Outpatient (RCR) | payer MEDICARE ==
[2018-02-27 14:00] VITALS: BP 140/70
[2018-02-27 15:00] VITALS: BP 118/60
[2018-03-01 14:00] VITALS: BP 140/60
[2018-03-01 15:00] VITALS: BP 128/60
[2018-03-06 14:00] VITALS: BP 120/60
[2018-03-06 15:00] VITALS: BP 118/60
[2018-03-08 14:00] VITALS: BP 120/56
[2018-03-08 15:00] VITALS: BP 130/60
[2018-03-13 14:00] VITALS: BP 170/50
[2018-03-13 15:00] VITALS: BP 120/50
[2018-03-15 14:00] VITALS: BP 123/60
[2018-03-15 15:00] VITALS: BP 121/60
[2018-03-20 14:00] VITALS: BP 122/58
[2018-03-20 15:00] VITALS: BP 120/63
[~2018-03-27 08:49] MED LIST changes: +DIGO250T PO; -IPRA3AMP IH; +IPRA3AMP31 IH; +METF-397 PO; -METF500T5 PO; +POTA20TA15 PO
[2018-03-27 08:55] VITALS: BP 120/60
[2018-03-27 10:00] VITALS: BP 120/60
[2018-03-29 14:00] VITALS: BP 139/60
[2018-03-29 15:00] VITALS: BP 140/50
[2018-04-03 14:00] VITALS: BP 130/50
[2018-04-03 15:00] VITALS: BP 150/60
[2018-04-05 14:00] VITALS: BP 116/63
[2018-04-05 15:00] VITALS: BP 121/70
[2018-04-10 13:55] VITALS: BP 150/80
[2018-04-10 14:55] VITALS: BP 126/60
[2018-04-12 14:00] VITALS: BP 136/60
[2018-04-12 15:00] VITALS: BP 140/50
[2018-04-17 14:00] VITALS: BP 140/60
[2018-04-17 15:00] VITALS: BP 130/60
== END 2018-04-15 | disposition home or self-care (01) ==
LOC: PULM 08:49
PROVIDERS: ATTEND Nurse Practitioner Family
DX: J44.9 Chronic obstructive pulmonary disease, unspecified (principal)
CPT/HCPCS: 99211

== ENCOUNTER 2018-04-16 08:00 | Outpatient (RCR) | payer MEDICARE ==
[2018-04-19 14:00] VITALS: BP 132/50
[2018-04-19 15:00] VITALS: BP 132/50
[2018-04-24 14:00] VITALS: BP 180/60
[2018-04-24 15:00] VITALS: BP 135/50
[2018-04-26 14:00] VITALS: BP 140/60
[2018-04-26 15:00] VITALS: BP 122/60
[2018-05-01 14:00] VITALS: BP 138/55
[2018-05-01 15:00] VITALS: BP 132/66
[2018-05-03 14:00] VITALS: BP 112/68
[2018-05-03 15:00] VITALS: BP 130/50
[2018-05-08 14:00] VITALS: BP 120/60
[2018-05-08 15:00] VITALS: BP 114/56
[2018-05-10 14:00] VITALS: BP 170/64
[2018-05-10 15:00] VITALS: BP 120/70
== END 2018-07-15 | disposition home or self-care (01) ==
LOC: PULM 08:00
PROVIDERS: ATTEND Nurse Practitioner Family
DX: J44.9 Chronic obstructive pulmonary disease, unspecified (principal)

== ENCOUNTER → 2018-04-30 | Outpatient (CLI) | payer MEDICARE | LOC: CARD 12:53 | PROVIDERS: ATTEND Physician Assistant | DX: I25.10 Atherosclerotic heart disease of native coronary artery without angina pectoris (principal); R00.2 Palpitations; I47.1 Supraventricular tachycardia; E11.9 Type 2 diabetes mellitus without complications | CPT/HCPCS: 93306 ==

== ENCOUNTER 2018-05-20 22:33 | Emergency (ER) | payer MEDICARE ==
[~2018-05-20] VITALS: Ht 167.6 cm; Wt 68.0 kg
[2018-05-20] MEDS ORDERED: ADENOSINE 6 MG/2 ML (ADENOCARD) VIAL IV ONE ×3 (22:39→22:45)
[2018-05-20 22:47] LABS: BASOPHILS % (AUTO) 0 % (0-10); EOSINOPHILS # (AUTO) 0.3 10^3/uL (0.0-0.3); EOSINOPHILS % (AUTO) 3 % (0-10); HEMATOCRIT 43 % (35-52); HEMOGLOBIN 14.3 G/DL (11.5-16.0); LYMPHOCYTES # (AUTO) 2.7 X 10^3 (1.0-4.0); LYMPHOCYTES % (AUTO) 29 % (12-44); MEAN CORPUSCULAR HEMOGLOBIN 30 PG (25-34); MEAN CORPUSCULAR HGB CONC 33 G/DL (32-36); MEAN CORPUSCULAR VOLUME 92 FL (80-99); MEAN PLATELET VOLUME 8.7 FL (7.4-10.4); MONOCYTES # (AUTO) 0.7 X 10^3 (0.0-1.0); MONOCYTES % (AUTO) 8 % (0-12); NEUTROPHILS # (AUTO) 5.6 X 10^3 (1.8-7.8); NEUTROPHILS % (AUTO) 60 % (42-75); PLATELET COUNT 246 10^3/uL (130-400); RED BLOOD COUNT 4.71 10^6/uL (4.35-5.85); RED CELL DISTRIBUTION WIDTH 14.9 % (10.0-14.5); WHITE BLOOD COUNT 9.4 10^3/uL (4.3-11.0)
--- NOTE | 2018-05-20 22:52 | ED Cardiac General ---
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 DENG PT HAS DECLINED REFERRAL FOR CARDIAC ABLATION IN THE PAST Allergies and Home Medications Allergies Coded Allergies: codeine (Verified Allergy, Unknown, 01/03/17) Home Medications Aspirin 81 Mg Tablet.dr, 81 MG PO HS, (Reported) Digoxin 125 Mcg Tablet, 125 MCG PO DAILY, (Reported) Digoxin 250 Mcg Tablet, 250 MCG PO DAILY Prescribed by: RUBY BALDERAS on 01/12/182141 Fluticasone/Salmeterol 1 Each Blst.w.dev, 1 PUFF IH BID, (Reported) Hydrochlorothiazide 25 Mg Tablet, 25 MG PO DAILY, (Reported) Ipratropium/Albuterol Sulfate 3 Ml Ampul.neb, 3 ML IH QID, (Reported) Magnesium Oxide 400 Mg Tablet, 400 MG PO DAILY, (Reported) Metformin HCl 500 Mg Tablet, 500 MG PO BID, (Reported) Metoprolol Tartrate 50 Mg Tablet, 50 MG PO TID, (Reported) Potassium Chloride 20 Meq Tab.er.prt, 20 MEQ PO BID Prescribed by: RUBY BALDERAS on 01/12/182141 Simvastatin 80 Mg Tablet, 80 MG PO HS, (Reported) Patient Home Medication List Home Medication List Reviewed: Yes Review of Systems Review of Systems Constitutional: no symptoms reported Respiratory: See HPI, Shortness of Air Cardiovascular: See HPI; Denies Chest Pain, Denies Edema; Irregular Heart Rate ; Denies Lightheadedness; Palpitations; Denies Syncope Gastrointestinal: No Symptoms Reported Genitourinary: No Symptoms Reported Musculoskeletal: no symptoms reported Skin: no symptoms reported Psychiatric/Neurological: No Symptoms Reported Endocrine: No Symptoms Reported Hematologic/Lymphatic: No Symptoms Reported Past Jljsavo-Kxnzdz-Vxopes Hx Patient Social History Former Smoker, Quit: Mar 16, 2005 Recent Foreign Travel: No Contact w/Someone Who Travel: No Recent Hopitalizations: No Immunizations Up To Date PED Vaccines UTD: No Date of Pneumonia Vaccine: Aug 05, 2015 Date of Influenza Vaccine: Apr 23, 2017 Seasonal Allergies Seasonal Allergies: No Past Medical History Surgeries: Yes (CARDIAC CATH-STENT X 1 IN 2008; BILATERAL CATARACTS) Cardiac, Coronary Stent, Eye Surgery Respiratory: Yes (O2 AT HS) COPD Currently Using CPAP: No Currently Using BIPAP: No Cardiac: Yes (SVT) Aneurysm, Coronary Artery Disease, High Cholesterol, Hypertension, Irregular Heartbeat, Peripheral Vascular 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 Sexually Transmitted Disease: No HIV/AIDS: No Genitourinary: No Gastrointestinal: No Musculoskeletal: Yes Arthritis Endocrine: Yes Diabetes, Non-Insulin dep HEENT: Yes (BILATERAL CATARACT SURGERY) Cataract Loss of Vision: Denies Hearing Impairment: Denies Cancer: No Psychosocial: No Integumentary: No Blood Disorders: No Adverse Reaction/Blood Tranf: No Family Medical History Cardiovascular disease 19 FATHER 19 MOTHER G8 SISTER Diabetes mellitus G8 SISTER FH: cirrhosis G8 SISTER Hypertension 19 FATHER 19 MOTHER Physical Exam Vital Signs Vital Signs - First Documented Capillary Refill : Height, Weight, BMI Height: 5'6.00" Weight: 155lbs. 2.0oz. [id number]; 26.7 BMI Method:Stated General Appearance: No Apparent Distress, WD/WN, Other (AMBULATES INTO ER WITHOUT DIFFICULTY. PT IS SMILING, TALKATIVE AND DOES NOT APPEAR TO BE IN ANY DISCOMFORT WHATSOEVER. 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 Skin: Normal Color, Warm/Dry Progress/Results/Core Measures Results/Orders Lab Results Laboratory Tests Test 05/20/18 22:40 Range/Units White Blood Count 9.4 4.3-11.0 10^3/uL Red Blood Count 4.71 4.35-5.85 10^6/uL Hemoglobin 14.3 11.5-16.0 G/DL Hematocrit 43 35-52 % Mean Corpuscular Volume 92 80-99 FL Mean Corpuscular Hemoglobin 30 25-34 PG Mean Corpuscular Hemoglobin Concent 33 32-36 G/DL Red Cell Distribution Width 14.9 H 10.0-14.5 % Platelet Count 246 130-400 10^3/uL Mean Platelet Volume 8.7 7.4-10.4 FL Neutrophils (%) (Auto) 60 42-75 % Lymphocytes (%) (Auto) 29 12-44 % Monocytes (%) (Auto) 8 0-12 % Eosinophils (%) (Auto) 3 0-10 % Basophils (%) (Auto) 0 0-10 % Neutrophils # (Auto) 5.6 1.8-7.8 X 10^3 Lymphocytes # (Auto) 2.7 1.0-4.0 X 10^3 Monocytes # (Auto) 0.7 0.0-1.0 X 10^3 Eosinophils # (Auto) 0.3 0.0-0.3 10^3/uL Basophils # (Auto) 0.0 0.0-0.1 10^3/uL Prothrombin Time 12.3 12.2-14.7 SEC INR Comment 0.9 0.8-1.4 Activated Partial Thromboplast Time 32 24-35 SEC Sodium Level 137 135-145 MMOL/L Potassium Level 3.5 L 3.6-5.0 MMOL/L Chloride Level 97 L 98-107 MMOL/L Carbon Dioxide Level 27 21-32 MMOL/L Anion Gap 13 5-14 MMOL/L Blood Urea Nitrogen 25 H 7-18 MG/DL Creatinine 1.13 0.60-1.30 MG/DL Estimat Glomerular Filtration Rate 47 BUN/Creatinine Ratio 22 Glucose Level 161 H 70-105 MG/DL Calcium Level 9.7 8.5-10.1 MG/DL Corrected Calcium 9.3 8.5-10.1 MG/DL Magnesium Level 2.2 1.8-2.4 MG/DL Total Bilirubin 0.4 0.1-1.0 MG/DL Aspartate Amino Transf (AST/SGOT) 22 5-34 U/L Alanine Aminotransferase (ALT/SGPT) 30 0-55 U/L Alkaline Phosphatase 68 40-136 U/L Myoglobin 134.4 H 10.0-92.0 NG/ML Troponin I < 0.30 <0.30 NG/ML B-Type Natriuretic Peptide 36.6 <100.0 PG/ML Total Protein 7.5 6.4-8.2 GM/DL Albumin 4.5 3.2-4.5 GM/DL Thyroid Stimulating Hormone (TSH) 4.36 0.35-4.94 UIU/ML Digoxin Level 0.37 L 0.80-2.00 NG/ML My Orders Orders - SUSAN MAR DO Cbc With Automated Diff (05/20/18 22:39) Magnesium (05/20/18 22:39) Chest 1 View, Ap/Pa Only (05/20/18 22:39) Ekg Tracing (05/20/18 22:39) Cardiac Profile 1 (05/20/18 22:39) Comprehensive Metabolic Panel (05/20/18 22:39) Myoglobin Serum (05/20/18 22:39) Protime With Inr (05/20/18 22:39) Partial Thromboplastin Time (05/20/18 22:39) O2 (05/20/18 22:39) Monitor-Rhythm Ecg Trace Only (05/20/18 22:39) Saline Lock/Iv-Start (05/20/18 22:39) BNP (05/20/18 22:39) Adenosine Injection (Adenocard Injection (05/20/18 22:45) Adenosine Injection (Adenocard Injection (05/20/18 22:39) Adenosine Injection (Adenocard Injection (05/20/18 22:40) Thyroid Stimulating Hormone (05/20/18 22:45) Digoxin (05/20/18 22:53) Vital Signs/I&O 05/20/18 05/20/18 05/20/18 22:36 22:36 23:52 Temp 97.0 97.0 Pulse 163 86 Resp 17 18 B/P (MAP) 154/96 (115) 105/70 (82) Pulse Ox 98 98 97 O2 Delivery Room Air Room Air Room Air Progress Progress Note : Progress Note HR 156-158 ON ARRIVAL PT SELF CONVERTED AT 2243 TO NSR RATE IN 80'S AND RESOLUTION OF SYMPTOMS , BEFORE FIRST EKG COULD BE DONE--SEE TELEMETRY STRIPS UNEVENTFUL ER STAY Initial ECG Impression Date: May 20, 2018 Initial ECG Impression Time: 23:01 Initial ECG Rate: 83 Initial ECG Rhythm: Normal Sinus Departure Impression Primary Impression: PSVT (paroxysmal supraventricular tachycardia) Disposition: 01 HOME, SELF-CARE Condition: Improved Departure-Patient Inst. Referrals: SHARON SHI MD (PCP/Family) Primary Care Physician BILL DENG MD Patient Instructions: Paroxysmal Supraventricular Tachycardia (DC) Add. Discharge Instructions: TAKE YOUR MEDICATIONS PRESCRIBED FOLLOW UP WITH DR. DENG THIS WEEK FOR FURTHER CARE SUSAN MAR DO May 20, 2018 22:52
[2018-05-20 22:58] LABS: INR 0.9 (0.8-1.4); PROTHROMBIN TIME PATIENT 12.3 SEC (12.2-14.7)
[2018-05-20 23:12] LABS: ALANINE AMINOTRANSFERASE 30 U/L (0-55); ALBUMIN 4.5 GM/DL (3.2-4.5); ALKALINE PHOSPHATASE 68 U/L (40-136); BILIRUBIN,TOTAL 0.4 MG/DL (0.1-1.0); BUN/CREATININE RATIO 22; CALCIUM 9.7 MG/DL (8.5-10.1); CARBON DIOXIDE 27 MMOL/L (21-32); CHLORIDE 97 MMOL/L (98-107); CREATININE SERUM 1.13 MG/DL (0.60-1.30); GFR ESTIMATED 47; GLUCOSE 161 MG/DL (70-105); MAGNESIUM 2.2 MG/DL (1.8-2.4); POTASSIUM 3.5 MMOL/L (3.6-5.0); SODIUM 137 MMOL/L (135-145); TOTAL PROTEIN 7.5 GM/DL (6.4-8.2)
[2018-05-20 23:19] LABS: MYOGLOBIN SERUM 134.4 NG/ML (10.0-92.0)
[2018-05-20 23:52] VITALS: BP 105/70
--- NOTE | 2018-05-21 06:44 | Diagnostic Imaging Report ---
PATIENT HISTORY: Tachycardia. TECHNIQUE: Single frontal view of the chest COMPARISON: 01/12/2018 FINDINGS: Lung volumes are large. No focal consolidation is seen. There is no pleural effusion or pneumothorax. The cardiomediastinal silhouette is normal in size and contour. There is mild aortic atherosclerosis. There is deformity of the proximal left humerus, likely from old trauma. IMPRESSION: Large lung volumes with no acute pulmonary abnormality seen. Dictated by: Dictated on workstation # [id number]
== END 2018-05-20 23:48 | disposition home or self-care (01) ==
LOC: EDUNIT# 22:33 → ER 22:35
DX: I47.1 Supraventricular tachycardia (principal); J44.9 Chronic obstructive pulmonary disease, unspecified; I25.10 Atherosclerotic heart disease of native coronary artery without angina pectoris; E78.00 Pure hypercholesterolemia, unspecified; I10 Essential (primary) hypertension; E11.51 Type 2 diabetes mellitus with diabetic peripheral angiopathy without gangrene; Z88.5 Allergy status to narcotic agent; Z79.82 Long term (current) use of aspirin; Z95.5 Presence of coronary angioplasty implant and graft
CPT/HCPCS: 36415; 71045; 80053; 80162; 83735; 83874; 83880; 84443; 84484; 85025; 85610; 85730; 93005; 93041

== ENCOUNTER 2019-05-29 13:42 | Emergency (ER) | payer MEDICARE ==
[~2019-05-29] VITALS: Ht 167.7 cm; Wt 66.8 kg
[2019-05-29] MEDS ORDERED: ADENOSINE 6 MG/2 ML (ADENOCARD) VIAL IV ONE ×3 (13:44→13:45)
--- NOTE | 2019-05-29 13:44 | NUR ---
PT HR WHEN ON PULSE OX 184, WHILE PT BEING PUT ON MONITOR, PT STATES FEELS A LITTLE BETTER AND RATE DOWN TO 100. Jennifer OLIVER IN ROOM AT TIME OF CONVERSION.
--- NOTE | 2019-05-29 13:54 | ED Cardiac General ---
History of Present Illness General Chief Complaint: Cardiac/General Problems Stated Complaint: SOA;HEART BEATING FAST Source: patient Exam Limitations: no limitations History of Present Illness Date Seen by Provider: May 29, 2019 Time Seen by Provider: 13:49 Initial Comments To ER with shortness of breath and sensation of heart beating fast that began one half hours ago while sitting down watching TV. She has a history of this, states that she has SVT most recently in August of this year. She states that typically adenosine works for her. Denies chest pain. Primary care is Dr. Brock, cardiology Dr. Sherman. She also reports that she has COPD and is time for her DuoNeb treatment. 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: No ASA po PRODUCT MANUFACTURING PROFESSIONAL: No Associated Systoms: Shortness of Air Allergies and Home Medications Allergies Coded Allergies: codeine (Verified Allergy, Unknown, 01/03/17) Home Medications Aspirin 81 Mg Tablet.dr, 81 MG PO HS, (Reported) Digoxin 125 Mcg Tablet, 125 MCG PO DAILY, (Reported) Digoxin 250 Mcg Tablet, 250 MCG PO DAILY Prescribed by: RUBY BALDERAS on 01/12/182141 Fluticasone/Salmeterol 1 Each Blst.w.dev, 1 PUFF IH BID, (Reported) Hydrochlorothiazide 25 Mg Tablet, 25 MG PO DAILY, (Reported) Ipratropium/Albuterol Sulfate 3 Ml Ampul.neb, 3 ML IH QID, (Reported) Magnesium Oxide 400 Mg Tablet, 400 MG PO DAILY, (Reported) Metformin HCl 500 Mg Tablet, 500 MG PO BID, (Reported) Metoprolol Tartrate 50 Mg Tablet, 50 MG PO TID, (Reported) Potassium Chloride 20 Meq Tab.er.prt, 20 MEQ PO BID Prescribed by: RUBY BALDERAS on 01/12/182141 Simvastatin 80 Mg Tablet, 80 MG PO HS, (Reported) Patient Home Medication List Home Medication List Reviewed: Yes Review of Systems Review of Systems Constitutional: see HPI EENTM: No Symptoms Reported Respiratory: No Symptoms Reported Cardiovascular: See HPI, Irregular Heart Rate, Palpitations Gastrointestinal: See HPI Genitourinary: No Symptoms Reported Musculoskeletal: no symptoms reported Skin: no symptoms reported Psychiatric/Neurological: No Symptoms Reported Endocrine: No Symptoms Reported Past Axyiqcc-Sfzuis-Brnhep Hx Patient Social History Former Smoker, Quit: Mar 16, 2005 Recent Hopitalizations: No Immunizations Up To Date Tetanus Booster (TDap): Unknown PED Vaccines UTD: No Date of Pneumonia Vaccine: Aug 05, 2015 Date of Influenza Vaccine: Apr 23, 2017 Seasonal Allergies Seasonal Allergies: No Past Medical History Surgeries: Yes (CARDIAC CATH-STENT X 1 IN 2008; BILATERAL CATARACTS) Cardiac, Coronary Stent, Eye Surgery Respiratory: Yes (O2 AT HS) COPD Currently Using CPAP: No Currently Using BIPAP: No Cardiac: Yes (SVT) Aneurysm, Coronary Artery Disease, High Cholesterol, Hypertension, Irregular Heartbeat, Peripheral Vascular 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) 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 Sexually Transmitted Disease: No HIV/AIDS: No Genitourinary: No Gastrointestinal: No Musculoskeletal: Yes Arthritis Endocrine: Yes Diabetes, Non-Insulin dep HEENT: Yes (BILATERAL CATARACT SURGERY) Cataract Loss of Vision: Denies Hearing Impairment: Denies Cancer: No Psychosocial: No Integumentary: No Blood Disorders: No Adverse Reaction/Blood Tranf: No Family Medical History Cardiovascular disease 19 FATHER 19 MOTHER G8 SISTER Diabetes mellitus G8 SISTER FH: cirrhosis G8 SISTER Hypertension 19 FATHER 19 MOTHER Physical Exam Vital Signs Vital Signs - First Documented 05/29/19 13:42 Temp 36.7 Pulse 184 Resp 20 B/P (MAP) 145/82 (103) Pulse Ox 96 O2 Delivery Room Air Capillary Refill : Height, Weight, BMI Height: 5'6.00" Weight: 150lbs. 0oz. [id number]; 26.7 BMI Method:Stated General Appearance: No Apparent Distress, WD/WN, Other (mentating well and smiling and ambulatory 6.) HEENT: PERRL/EOMI Neck: Full Range of Motion, Normal Inspection Respiratory: No Accessory Muscle Use, No Respiratory Distress Cardiovascular: Tachycardia Gastrointestinal: Normal Bowel Sounds, Non Tender, Soft Extremity: Normal Capillary Refill, Normal Inspection Neurologic/Psychiatric: Alert, Oriented x3 Skin: Normal Color, Warm/Dry Progress/Results/Core Measures Results/Orders Lab Results Laboratory Tests Test 05/29/19 13:40 Range/Units White Blood Count 5.6 4.3-11.0 10^3/uL Red Blood Count 4.68 4.35-5.85 10^6/uL Hemoglobin 14.0 11.5-16.0 G/DL Hematocrit 42 35-52 % Mean Corpuscular Volume 90 80-99 FL Mean Corpuscular Hemoglobin 30 25-34 PG Mean Corpuscular Hemoglobin Concent 33 32-36 G/DL Red Cell Distribution Width 14.7 H 10.0-14.5 % Platelet Count 191 130-400 10^3/uL Mean Platelet Volume 9.1 7.4-10.4 FL Neutrophils (%) (Auto) 69 42-75 % Lymphocytes (%) (Auto) 18 12-44 % Monocytes (%) (Auto) 12 0-12 % Eosinophils (%) (Auto) 1 0-10 % Basophils (%) (Auto) 0 0-10 % Neutrophils # (Auto) 3.9 1.8-7.8 X 10^3 Lymphocytes # (Auto) 1.0 1.0-4.0 X 10^3 Monocytes # (Auto) 0.7 0.0-1.0 X 10^3 Eosinophils # (Auto) 0.0 0.0-0.3 10^3/uL Basophils # (Auto) 0.0 0.0-0.1 10^3/uL Sodium Level 139 135-145 MMOL/L Potassium Level 3.2 L 3.6-5.0 MMOL/L Chloride Level 94 L 98-107 MMOL/L Carbon Dioxide Level 32 21-32 MMOL/L Anion Gap 13 5-14 MMOL/L Blood Urea Nitrogen 24 H 7-18 MG/DL Creatinine 1.16 0.60-1.30 MG/DL Estimat Glomerular Filtration Rate 45 BUN/Creatinine Ratio 21 Glucose Level 169 H 70-105 MG/DL Calcium Level 9.9 8.5-10.1 MG/DL Corrected Calcium 9.6 8.5-10.1 MG/DL Magnesium Level 1.2 L 1.6-2.4 MG/DL Total Bilirubin 0.3 0.1-1.0 MG/DL Aspartate Amino Transf (AST/SGOT) 24 5-34 U/L Alanine Aminotransferase (ALT/SGPT) 27 0-55 U/L Alkaline Phosphatase 69 40-136 U/L Troponin I < 0.028 <0.028 NG/ML Total Protein 7.3 6.4-8.2 GM/DL Albumin 4.4 3.2-4.5 GM/DL My Orders Orders - CISCO FOWLER REGISTRY RN Cbc With Automated Diff (05/29/19 13:48) Magnesium (05/29/19 13:48) Ekg Tracing (05/29/19 13:48) Cardiac Profile 1 (05/29/19 13:48) Comprehensive Metabolic Panel (05/29/19 13:48) Monitor-Rhythm Ecg Trace Only (05/29/19 13:48) Ed Iv/Invasive Line Start (05/29/19 13:48) Albuterol/Ipra Inhalation Soln (Duoneb I (05/29/19 14:15) Svn Small Volume Nebulizer (05/29/19 14:05) Magnesium Oxide Tablet (Mag Ox Tablet) (05/29/19 14:30) Potassium Chloride (Tablet) (Klor Con Ta (05/29/19 14:30) Medications Given in ED Current Medications Medications Dose Ordered Sig/Melanie Route Start Time Stop Time Status Last Admin Dose Admin Albuterol/ Ipratropium 3 ml ONCE ONCE INH 05/29/19 14:15 05/29/19 14:16 DC 05/29/19 14:17 3 ML Vital Signs/I&O 05/29/19 05/29/19 13:42 14:18 Temp 36.7 Pulse 184 Resp 20 B/P (MAP) 145/82 (103) Pulse Ox 96 94 O2 Delivery Room Air Room Air Departure Communication (Admissions) [id number]-On arrival to room 6 her heart rate on the pulse oximeter was 184, this was prior to the monitoring specialist electrodes being applied so the actual rhythm was not visualized. Immediately after that, Upon application of the monitoring specialist leads she reported improvement in symptoms and her heart rate was noted to reduce down to about 97 the rhythm was a narrow complex and regular. She feels as though she has converted back to a normal rhythm. Impression Primary Impression: PSVT (paroxysmal supraventricular tachycardia) Disposition: 01 HOME, SELF-CARE Condition: Improved Departure-Patient Inst. Decision time for Depature: 13:54 Referrals: SHARON BROCK MD (PCP/Family) Primary Care Physician Patient Instructions: Paroxysmal Supraventricular Tachycardia (DC) Add. Discharge Instructions: 1. Return to ER for any concerns 2. Follow-up with your doctor next week 3. All discharge instructions reviewed with patient and/or family. Voiced understanding. Scripts Potassium Chloride (Potassium Chloride) 10 Meq Tablet.er 10 MEQ PO DAILY, #10 TAB Prov: CISCO FOWLER APRN 05/29/19 Magnesium Oxide (Magnesium Oxide) 400 Mg Tablet 400 MG PO BID, #10 TAB Prov: CISCO FOWLER REGISTRY RN 05/29/19 Copy Copies To 1: SHARON BROCK MD; BILL SHERMAN MD, PETER J APRN May 29, 2019 13:54 POS
[2019-05-29 13:59] LABS: BASOPHILS % (AUTO) 0 % (0-10); EOSINOPHILS % (AUTO) 1 % (0-10); HEMATOCRIT 42 % (35-52); LYMPHOCYTES % (AUTO) 18 % (12-44); MEAN CORPUSCULAR HEMOGLOBIN 30 PG (25-34); MEAN CORPUSCULAR HGB CONC 33 G/DL (32-36); MEAN CORPUSCULAR VOLUME 90 FL (80-99); MEAN PLATELET VOLUME 9.1 FL (7.4-10.4); MONOCYTES # (AUTO) 0.7 X 10^3 (0.0-1.0); MONOCYTES % (AUTO) 12 % (0-12); NEUTROPHILS # (AUTO) 3.9 X 10^3 (1.8-7.8); NEUTROPHILS % (AUTO) 69 % (42-75); PLATELET COUNT 191 10^3/uL (130-400); RED CELL DISTRIBUTION WIDTH 14.7 % (10.0-14.5); WHITE BLOOD COUNT 5.6 10^3/uL (4.3-11.0)
[2019-05-29] MEDS ORDERED: RT-ALBUTEROL/IPRATROPIUM 3 ML (DUONEB) VIAL INH ONE (14:15)
[2019-05-29 14:20] LABS: ALANINE AMINOTRANSFERASE 27 U/L (0-55); ALBUMIN 4.4 GM/DL (3.2-4.5); ALKALINE PHOSPHATASE 69 U/L (40-136); BILIRUBIN,TOTAL 0.3 MG/DL (0.1-1.0); BUN/CREATININE RATIO 21; CALCIUM 9.9 MG/DL (8.5-10.1); CARBON DIOXIDE 32 MMOL/L (21-32); CHLORIDE 94 MMOL/L (98-107); CREATININE SERUM 1.16 MG/DL (0.60-1.30); GFR ESTIMATED 45; GLUCOSE 169 MG/DL (70-105); MAGNESIUM 1.2 MG/DL (1.6-2.4); POTASSIUM 3.2 MMOL/L (3.6-5.0); SODIUM 139 MMOL/L (135-145); TOTAL PROTEIN 7.3 GM/DL (6.4-8.2)
[2019-05-29] MEDS ORDERED: MAGNESIUM OXIDE (MAG-OX)400 MG TAB PO ONE (14:30)
[2019-05-29] MEDS ORDERED: KCL 10 MEQ TAB (MICRO K) PO ONE (14:30)
[2019-05-29] MEDS ORDERED: POTA10TA10 PO (14:30)
[2019-05-29] MEDS ORDERED: MAGN400T6 PO (14:30)
[2019-05-29 15:33] VITALS: BP 118/67
== END 2019-05-29 15:33 | disposition home or self-care (01) ==
LOC: EDUNIT# 13:42 → ER 13:43
DX: I47.1 Supraventricular tachycardia (principal); I10 Essential (primary) hypertension; E11.9 Type 2 diabetes mellitus without complications; E78.00 Pure hypercholesterolemia, unspecified; I25.10 Atherosclerotic heart disease of native coronary artery without angina pectoris; J44.9 Chronic obstructive pulmonary disease, unspecified; Z88.5 Allergy status to narcotic agent; Z79.82 Long term (current) use of aspirin; Z79.51 Long term (current) use of inhaled steroids; Z95.5 Presence of coronary angioplasty implant and graft; Z82.49 Family history of ischemic heart disease and other diseases of the circulatory system
CPT/HCPCS: 36415; 80053; 83735; 84484; 85025; 93005; 93041; 94640

== ENCOUNTER → 2019-06-10 | Outpatient (CLI) | payer MEDICARE ==
[~2019-06-10] MED LIST changes: +POTA10TA10 PO
--- NOTE | 2019-06-10 16:42 | Diagnostic Imaging Report ---
INDICATION: COPD and cold symptoms. PA and lateral views of the chest are obtained. Comparison is made to study of 05/20/2018. FINDINGS: Heart size and pulmonary vascularity are within normal limits. There is air trapping in the upper lobes. There is mild diffuse thoracic spondylosis. Deformity in the proximal left humerus is stable. IMPRESSION: Probable mild emphysema without evidence of acute abnormality or significant adverse change. Dictated by: Dictated on workstation # [id number]
== END ==
LOC: RAD 13:35
PROVIDERS: ATTEND Family Medicine
DX: J44.9 Chronic obstructive pulmonary disease, unspecified (principal); J18.9 Pneumonia, unspecified organism
CPT/HCPCS: 71046

== ENCOUNTER → 2019-09-04 | Outpatient (CLI) | payer MEDICARE ==
[~2019-09-04] MED LIST changes: -DIGO125T PO; +DIGO125T3 PO; -DIGO250T PO; +DIGO250T3 PO; -MAGN400T6 PO; +MAGN400T8 PO; +RT-ALBUTEROL SULF 2.5 MG/3 ML PRE-MIX VIAL INH ONE
== END ==
LOC: RT 12:16
PROVIDERS: ATTEND Nurse Practitioner Family
DX: J44.9 Chronic obstructive pulmonary disease, unspecified (principal)
CPT/HCPCS: 94060; 94726; 94729

== ENCOUNTER 2020-08-14 21:11 | Emergency (ER) | payer MEDICARE ==
[~2020-08-14] VITALS: Ht 167.7 cm; Wt 65.8 kg
[~2020-08-14 21:11] MED LIST changes: +ASPI-1238 PO; -ASPI-983 PO; -RT-ALBUTEROL SULF 2.5 MG/3 ML PRE-MIX VIAL INH ONE
[2020-08-14] MEDS ORDERED: ADENOSINE 6 MG/2 ML (ADENOCARD) VIAL IV ONE ×2 (21:12→22:00)
[2020-08-14 21:15] VITALS: BP 140/66
--- NOTE | 2020-08-14 21:28 | ED Cardiac General ---
History of Present Illness General Stated Complaint: SVT Source: patient Exam Limitations: no limitations History of Present Illness Date Seen by Provider: Aug 14, 2020 Time Seen by Provider: 21:13 Initial Comments To ER with reports of SVT that began at 8 PM this evening. She has palpitations but no shortness of breath or chest pain. She has had SVT intermittently since she was in her 20s. Typically she is able to convert herself at home with Valsalva maneuvers. Occasionally she states that she has to have adenosine. Timing/Duration: changing over time Severity: mild Activities at Onset: emotional stress Prior CP/Workup: no prior chest pain Allergies and Home Medications Allergies Coded Allergies: codeine (Verified Allergy, Unknown, 01/03/17) Home Medications Aspirin 81 Mg Tablet.dr, 81 MG PO HS, (Reported) Digoxin 125 Mcg Tablet, 125 MCG PO DAILY, (Reported) Digoxin 250 Mcg Tablet, 250 MCG PO DAILY Prescribed by: RUBY BALDERAS on 01/12/182141 Fluticasone/Salmeterol 1 Each Blst.w.dev, 1 PUFF IH BID, (Reported) Hydrochlorothiazide 25 Mg Tablet, 25 MG PO DAILY, (Reported) Ipratropium/Albuterol Sulfate 3 Ml Ampul.neb, 3 ML IH QID, (Reported) Magnesium Oxide 400 Mg Tablet, 400 MG PO DAILY, (Reported) Magnesium Oxide 400 Mg Tablet, 400 MG PO BID Prescribed by: CISCO FOWLER on 05/29/19 143 Metformin HCl 500 Mg Tablet, 500 MG PO BID, (Reported) Metoprolol Tartrate 50 Mg Tablet, 50 MG PO TID, (Reported) Potassium Chloride 20 Meq Tab.er.prt, 20 MEQ PO BID Prescribed by: RUBY BALDERAS on 01/12/182141 Potassium Chloride 10 Meq Tablet.er, 10 MEQ PO DAILY Prescribed by: CISCO FOWLER on 05/29/19 1430 Simvastatin 80 Mg Tablet, 80 MG PO HS, (Reported) Patient Home Medication List Home Medication List Reviewed: Yes Review of Systems Review of Systems Constitutional: see HPI; No chills, No fever, No malaise, No weakness EENTM: No Symptoms Reported Respiratory: No Symptoms Reported; Denies Cough, Denies Orthopnea, Denies Shortness of Air Cardiovascular: See HPI; Denies Chest Pain; Palpitations Gastrointestinal: No Symptoms Reported Musculoskeletal: no symptoms reported Skin: no symptoms reported Psychiatric/Neurological: No Symptoms Reported Endocrine: No Symptoms Reported Past Rliqegj-Klzaxd-Idecqh Hx Patient Social History Former Smoker, Quit: Mar 16, 2005 2nd Hand Smoke Exposure: No Recent Hopitalizations: No Immunizations Up To Date Tetanus Booster (TDap): Unknown PED Vaccines UTD: No Date of Pneumonia Vaccine: Aug 05, 2015 Date of Influenza Vaccine: Apr 23, 2017 Seasonal Allergies Seasonal Allergies: No Past Medical History Surgeries: Yes (CARDIAC CATH-STENT X 1 IN 2008; BILATERAL CATARACTS) Cardiac, Coronary Stent, Eye Surgery Respiratory: Yes (O2 AT HS) COPD Currently Using CPAP: No Currently Using BIPAP: No Cardiac: Yes (SVT) Aneurysm, Coronary Artery Disease, High Cholesterol, Hypertension, Irregular Heartbeat, Peripheral Vascular 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) 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 Sexually Transmitted Disease: No HIV/AIDS: No Genitourinary: No Gastrointestinal: No Musculoskeletal: Yes Arthritis Endocrine: Yes Diabetes, Non-Insulin dep HEENT: Yes (BILATERAL CATARACT SURGERY) Cataract Loss of Vision: Denies Hearing Impairment: Denies Cancer: No Psychosocial: No Integumentary: No Blood Disorders: No Adverse Reaction/Blood Tranf: No Family Medical History Cardiovascular disease 19 FATHER 19 MOTHER G8 SISTER Diabetes mellitus G8 SISTER FH: cirrhosis G8 SISTER Hypertension 19 FATHER 19 MOTHER Physical Exam Vital Signs Capillary Refill : Height, Weight, BMI Height: 5'6.00" Weight: 150lbs. 0oz. 68.757736bo; 23.00 BMI Method:Stated General Appearance: No Apparent Distress, WD/WN, Other (Ambulatory without assistive device to room 2. No apparent difficulty. Alert and oriented very pleasant no distress. Blood pressure is 120s over 60s on arrival with a heart rate narrow complex regular at 169. ) Respiratory: No Accessory Muscle Use, No Respiratory Distress Cardiovascular: Tachycardia Gastrointestinal: Non Tender, Soft Extremity: Normal Capillary Refill, Normal Inspection Neurologic/Psychiatric: Alert, Oriented x3 Skin: Normal Color, Warm/Dry Progress/Results/Core Measures Results/Orders Lab Results My Orders Orders - CISCO FOWLER APRN Ekg Tracing (08/14/20 21:19) Departure Communication (Admissions) We started an IV and attached her to the environmental monitoring technician. As we were obtaining the EKG she actually converted to normal sinus rhythm a rate of 90s. No ST segment changes. I offered her laboratory evaluation but she states that she has had this in off she wants to go on home and agrees to sign a refusal of services form confirming that she does not want any laboratory evaluation. She feels fine now and wants to go on home. Blood pressure rechecked and 140s over 80s after converting to normal sinus rhythm. Impression Primary Impression: PSVT (paroxysmal supraventricular tachycardia) Disposition: 01 HOME, SELF-CARE Condition: Improved Departure-Patient Inst. Decision time for Depature: 21:28 Referrals: SHARON SHI MD (PCP/Family) Primary Care Physician Patient Instructions: Supraventricular Tachycardia (SVT) CISCO FOWLER APRN Aug 14, 2020 21:28
--- NOTE | 2020-08-14 21:35 | NUR ---
pt dc'd to home after self converting. pt declined further workup.
== END 2020-08-14 21:35 | disposition home or self-care (01) ==
LOC: EDUNIT# 21:11 → ER 21:12
DX: I47.1 Supraventricular tachycardia (principal); I10 Essential (primary) hypertension; E78.00 Pure hypercholesterolemia, unspecified; J44.9 Chronic obstructive pulmonary disease, unspecified; E11.9 Type 2 diabetes mellitus without complications; Z87.891 Personal history of nicotine dependence; Z88.5 Allergy status to narcotic agent; Z82.49 Family history of ischemic heart disease and other diseases of the circulatory system; Z83.3 Family history of diabetes mellitus; Z95.5 Presence of coronary angioplasty implant and graft; Z79.82 Long term (current) use of aspirin; Z79.84 Long term (current) use of oral hypoglycemic drugs
CPT/HCPCS: 93005

== ENCOUNTER → 2021-04-07 | Outpatient (CLI) | payer MEDICARE | LOC: CARD 09:27 | PROVIDERS: ATTEND Internal Medicine Cardiovascular Disease | DX: I08.0 Rheumatic disorders of both mitral and aortic valves (principal); I10 Essential (primary) hypertension | CPT/HCPCS: 93306 ==

== ENCOUNTER 2021-05-16 09:04 | Emergency (ER) | payer MEDICARE ==
[~2021-05-16] VITALS: Ht 167 cm; Wt 75.0 kg
[~2021-05-16 09:04] MED LIST changes: -MAGN400T8 PO; +MGX400T PO
[2021-05-16] MEDS ORDERED: dilTIAZem DRIP PRE-MIX 125 ML IV ONE ×2 (09:18→09:20)
[2021-05-16 09:48] LABS: BASOPHILS % (AUTO) 0 % (0-10); EOSINOPHILS # (AUTO) 0.1 10^3/uL (0.0-0.3); EOSINOPHILS % (AUTO) 2 % (0-10); HEMATOCRIT 39 % (35-52); HEMOGLOBIN 13.2 g/dL (11.5-16.0); LYMPHOCYTES # (AUTO) 2.4 10^3/uL (1.0-4.0); LYMPHOCYTES % (AUTO) 36 % (12-44); MEAN CORPUSCULAR HEMOGLOBIN 31 pg (25-34); MEAN CORPUSCULAR HGB CONC 34 g/dL (32-36); MEAN CORPUSCULAR VOLUME 92 fL (80-99); MEAN PLATELET VOLUME 9.5 fL (9.0-12.2); MONOCYTES # (AUTO) 0.5 10^3/uL (0.0-1.0); MONOCYTES % (AUTO) 8 % (0-12); NEUTROPHILS # (AUTO) 3.6 10^3/uL (1.8-7.8); NEUTROPHILS % (AUTO) 54 % (42-75); PLATELET COUNT 204 10^3/uL (130-400); WHITE BLOOD COUNT 6.7 10^3/uL (4.3-11.0)
[2021-05-16 09:52] LABS: ALBUMIN 3.9 GM/DL (3.2-4.5); POTASSIUM 3.7 MMOL/L (3.6-5.0)
[2021-05-16 09:53] LABS: CALCIUM 9.7 MG/DL (8.5-10.1); INR 0.9 (0.8-1.4); PROTHROMBIN TIME PATIENT 12.7 SEC (12.2-14.7)
[2021-05-16 09:55] LABS: TOTAL PROTEIN 6.6 GM/DL (6.4-8.2)
--- NOTE | 2021-05-16 09:55 | Diagnostic Imaging Report ---
INDICATION: Chest pain. EXAMINATION: Chest 05/16/2021 COMPARISON: 05/12/2021 FINDINGS: The cardiomediastinal silhouette is unremarkable. The pulmonary vasculature is within normal limits. The lungs and pleural spaces are clear. IMPRESSION: No evidence of an acute cardiopulmonary process. Dictated by: Dictated on workstation # [id number]
[2021-05-16 09:56] LABS: BILIRUBIN,TOTAL 0.4 MG/DL (0.1-1.0)
[2021-05-16 09:58] LABS: CREATININE SERUM 1.23 MG/DL (0.60-1.30)
[2021-05-16 10:01] LABS: MAGNESIUM 1.5 MG/DL (1.6-2.4)
[2021-05-16 10:22] LABS: TSH (THYROID ANALYZER) 4.35 UIU/ML (0.35-4.94)
[2021-05-16] MEDS ORDERED: MAGNESIUM OXIDE (MAG-OX)400 MG TAB PO STA (11:00)
[2021-05-16] MEDS ORDERED: APIXABAN 5 MG (ELIQUIS) TABLET PO STA (11:01)
--- NOTE | 2021-05-16 11:07 | ED Cardiac General ---
History of Present Illness General Chief Complaint: Cardiac/General Problems Stated Complaint: SVT Nursing Triage Note: PT TO ED W/ C/O SVT ONSET UPON WAKING THIS AM. PT DENIED CP, SOB AT THIS TIME. PER EMS, CARDIZEM 6MG ET 12MG ADMINISTERED W/O IMPROVEMENT. NO OTHER C/O VOICED. Source: patient, old records Exam Limitations: no limitations History of Present Illness Date Seen by Provider: May 16, 2021 Time Seen by Provider: 09:10 Initial Comments Correction to above nursing triage: Cardizem was not administered by EMS. Adenosine 6 mg followed by adenosine 12 mg was administered by EMS. This 80-year-old woman presents to the emergency room via EMS with primary complaint of SVT. EMS reports SVT with a heart rate around 160 and presents an EKG consistent without finding. They report she received adenosine 6 mg IV resulting in brief sinus tachycardia for about 10 seconds with prompt return of SVT. Adenosine 12 mg IV was then given with the same result. Upon arrival to the emergency department she appears to have atrial fibrillation with RVR rangi ng from the 120s to 140s. While observing this rhythm, it abruptly changed to a regular rhythm with a rate of about 160 consistent with SVT. Patient describes some mild chest discomfort when the tachycardia started this morning. She could feel the palpitations. She took metoprolol as usual and waited an hour or two. The tachycardia did not resolve so she came to the ER. She states she felt weak in a way that she does not normally feel with SVT when the tachycardia sudden. Allergies and Home Medications Allergies Coded Allergies: codeine (Verified Allergy, Unknown, 01/03/17) Patient Home Medication List Home Medication List Reviewed: Yes Apixaban (Eliquis) 5 Mg Tablet, 5 MG PO BID Prescribed by: LUCRETIA FREITAS on 05/16/21 1108 Aspirin (Aspirin EC) 81 Mg Tablet., 81 MG PO HS, (Reported) Entered as Reported by: GERARD COBB on 03/20/17 0838 Digoxin (Digoxin) 125 Mcg Tablet, 125 MCG PO DAILY, (Reported) Entered as Reported by: GERARD COBB on 03/20/17 0838 Digoxin (Digoxin) 250 Mcg Tablet, 250 MCG PO DAILY Prescribed by: RUBY BALDERAS on 01/12/182141 Fluticasone/Salmeterol (Advair 250-50 Diskus) 1 Each Blst.w.dev, 1 PUFF IH BID, (Reported) Entered as Reported by: GERARD COBB on 03/20/17837 Hydrochlorothiazide (Hydrochlorothiazide) 25 Mg Tablet, 25 MG PO DAILY, (Reported) Entered as Reported by: GERARD COBB on 03/20/17837 Ipratropium/Albuterol Sulfate (Iprat-Albut 0.5-3(2.5) mg/3 ml) 3 Ml Ampul.neb, 3 ML IH QID, (Reported) Entered as Reported by: GERARD COBB on 03/20/17837 Magnesium Oxide (Magnesium Oxide) 400 Mg Tablet, 400 MG PO DAILY, (Reported) Entered as Reported by: GERARD COBB on 03/20/17837 Magnesium Oxide (Magnesium Oxide) 400 Mg Tablet, 400 MG PO BID Prescribed by: CISCO FOWLER on 05/29/19 1430 Magnesium Oxide (Magnesium Oxide) 400 Mg Tablet, 400 MG PO BID Prescribed by: LUCRETIA FREITAS on 05/16/21 1108 Metformin HCl (Metformin HCl) 500 Mg Tablet, 500 MG PO BID, (Reported) Entered as Reported by: GERARD COBB on 03/20/17837 Metoprolol Tartrate (Metoprolol Tartrate) 50 Mg Tablet, 50 MG PO TID, (Reported) Entered as Reported by: GERARD COBB on 03/20/17837 Potassium Chloride (Potassium Chloride) 20 Meq Tab.er.prt, 20 MEQ PO BID Prescribed by: RUBY BALDERAS on 01/12/18 214 Potassium Chloride (Potassium Chloride) 10 Meq Tablet.er, 10 MEQ PO DAILY Prescribed by: CISCO FOWLER on 05/29/19 1430 Simvastatin (Zocor) 80 Mg Tablet, 80 MG PO HS, (Reported) Entered as Reported by: GERARD COBB on 03/20/17837 Review of Systems Review of Systems Constitutional: see HPI, weakness EENTM: No Symptoms Reported Respiratory: No Symptoms Reported Cardiovascular: See HPI Gastrointestinal: No Symptoms Reported Genitourinary: No Symptoms Reported Musculoskeletal: no symptoms reported Skin: no symptoms reported Psychiatric/Neurological: No Symptoms Reported Endocrine: No Symptoms Reported Hematologic/Lymphatic: No Symptoms Reported Past Qlauscy-Embgkg-Sfynxk Hx Patient Social History Tobacco Use?: No Smoking Status: Former Smoker Immunizations Up To Date Tetanus Booster (TDap): Unknown PED Vaccines UTD: No Seasonal Allergies Seasonal Allergies: No Past Medical History Surgeries: Yes (CARDIAC CATH-STENT X 1 IN 2008; BILATERAL CATARACTS) Cardiac, Coronary Stent, Eye Surgery Respiratory: Yes (O2 AT HS) COPD Currently Using CPAP: No Currently Using BIPAP: No Cardiac: Yes (SVT) Aneurysm, Atrial Fibrillation, Coronary Artery Disease, High Cholesterol, Hypertension, Irregular Heartbeat, Peripheral Vascular 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) 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: 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 Sexually Transmitted Disease: No HIV/AIDS: No Genitourinary: No Gastrointestinal: No Musculoskeletal: Yes Arthritis Endocrine: Yes Diabetes, Non-Insulin dep HEENT: Yes (BILATERAL CATARACT SURGERY) Cataract Loss of Vision: Denies Hearing Impairment: Denies Cancer: No Psychosocial: No Integumentary: No Blood Disorders: No Adverse Reaction/Blood Tranf: No Family Medical History Cardiovascular disease 19 FATHER 19 MOTHER G8 SISTER Diabetes mellitus G8 SISTER FH: cirrhosis G8 SISTER Hypertension 19 FATHER 19 MOTHER Physical Exam Vital Signs Vital Signs - First Documented 05/16/21 09:05 Temp 35.8 Pulse 125 Resp 16 B/P (MAP) 129/81 (97) Pulse Ox 99 O2 Delivery Room Air Capillary Refill : Less Than 3 Seconds Height, Weight, BMI Height: 5'6.00" Weight: 150lbs. 0oz. 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 as Tested Skin: Normal Color, Warm/Dry Progress/Results/Core Measures Results/Orders Lab Results Laboratory Tests Test 05/16/21 09:05 Range/Units White Blood Count 6.7 4.3-11.0 10^3/uL Red Blood Count 4.24 3.80-5.11 10^6/uL Hemoglobin 13.2 11.5-16.0 g/dL Hematocrit 39 35-52 % Mean Corpuscular Volume 92 80-99 fL Mean Corpuscular Hemoglobin 31 25-34 pg Mean Corpuscular Hemoglobin Concent 34 32-36 g/dL Red Cell Distribution Width 13.7 10.0-14.5 % Platelet Count 204 130-400 10^3/uL Mean Platelet Volume 9.5 9.0-12.2 fL Immature Granulocyte % (Auto) 0 % Neutrophils (%) (Auto) 54 42-75 % Lymphocytes (%) (Auto) 36 12-44 % Monocytes (%) (Auto) 8 0-12 % Eosinophils (%) (Auto) 2 0-10 % Basophils (%) (Auto) 0 0-10 % Neutrophils # (Auto) 3.6 1.8-7.8 10^3/uL Lymphocytes # (Auto) 2.4 1.0-4.0 10^3/uL Monocytes # (Auto) 0.5 0.0-1.0 10^3/uL Eosinophils # (Auto) 0.1 0.0-0.3 10^3/uL Basophils # (Auto) 0.0 0.0-0.1 10^3/uL Immature Granulocyte # (Auto) 0.0 0.0-0.1 10^3/uL Prothrombin Time 12.7 12.2-14.7 SEC INR Comment 0.9 0.8-1.4 Activated Partial Thromboplast Time 31 24-35 SEC Sodium Level 138 135-145 MMOL/L Potassium Level 3.7 3.6-5.0 MMOL/L Chloride Level 99 98-107 MMOL/L Carbon Dioxide Level 24 21-32 MMOL/L Anion Gap 15 H 5-14 MMOL/L Blood Urea Nitrogen 23 H 7-18 MG/DL Creatinine 1.23 0.60-1.30 MG/DL Estimat Glomerular Filtration Rate 42 BUN/Creatinine Ratio 19 Glucose Level 266 H 70-105 MG/DL Calcium Level 9.7 8.5-10.1 MG/DL Corrected Calcium 9.8 8.5-10.1 MG/DL Magnesium Level 1.5 L 1.6-2.4 MG/DL Total Bilirubin 0.4 0.1-1.0 MG/DL Aspartate Amino Transf (AST/SGOT) 21 5-34 U/L Alanine Aminotransferase (ALT/SGPT) 31 0-55 U/L Alkaline Phosphatase 57 40-136 U/L Myoglobin 104.9 H 10.0-92.0 NG/ML Troponin I < 0.028 <0.028 NG/ML Total Protein 6.6 6.4-8.2 GM/DL Albumin 3.9 3.2-4.5 GM/DL TSH [place] Testing 4.35 0.35-4.94 UIU/ML Digoxin Level < 0.30 L 0.80-2.00 NG/ML My Orders Orders - LUCRETIA KOHLER MD Diltiazem Drip Pre-Mix (Cardizem Drip Pr (05/16/21 09:18) Diltiazem Drip Pre-Mix (Cardizem Drip Pr (05/16/21 09:20) Cbc With Automated Diff (05/16/21 09:41) Magnesium (05/16/21 09:41) Chest 1 View, Ap/Pa Only (05/16/21 09:41) Ekg Tracing (05/16/21 09:41) Comprehensive Metabolic Panel (05/16/21 09:41) Myoglobin Serum (05/16/21 09:41) Protime With Inr (05/16/21 09:41) Partial Thromboplastin Time (05/16/21 09:41) O2 (05/16/21 09:41) Monitor-Rhythm Ecg Trace Only (05/16/21 09:41) Ed Iv/Invasive Line Start (05/16/21 09:41) Troponin I (05/16/21 09:41) Digoxin (05/16/21 09:42) Thyroid Analyzer (05/16/21 09:42) Ekg Tracing (05/16/21 09:52) Ekg Tracing (05/16/21 09:52) Ekg Tracing (05/16/21 09:52) Magnesium Oxide Tablet (Mag Ox Tablet) (05/16/21 11:00) Apixaban Tablet (Eliquis Tablet) (05/16/21 11:01) Adenosine Injection (Adenocard Injection (05/16/21 14:00) Vital Signs/I&O 05/16/21 05/16/21 09:05 11:20 Temp 35.8 Pulse 125 79 Resp 16 18 B/P (MAP) 129/81 (97) 126/72 Pulse Ox 99 100 O2 Delivery Room Air Room Air Blood Pressure Mean: 97 Progress Progress Note : Progress Note Patient presented in A. fib with RVR and rhythm abruptly changed to SVT. Adenosine 12 mg IV was administered converting the rhythm to normal sinus rhythm. Work-up was otherwise unremarkable. Dr. Sherman was consulted and requested patient be started on Eliquis 5 mg twice daily. First dose was given in the ER. She was instructed to follow-up with him in the clinic tomorrow. We did not ultimately need to start a Cardizem drip. Digoxin level was undetectable. Patient insists that she is taking her digoxin daily including this morning. She cannot explain the undetectable digoxin level. Magnesium was low and a dose of oral magnesium was given. She was advised to increase her magnesium supplementation at home from once a day to twice a day. EKG #1: EKG Time: 09:05 Rate: 123 Rhythm: A Fib/Flutter ECG Impression: Atrial Fibrillation w/RVR Comment Atrial fibrillation with RVR. No diagnostic ST elevation to suggest STEMI. No axis deviation. This represents a change from the EMS EKG which had the appearance of SVT. EKG #2: EKG Time: 09:07 Rate: 163 Rhythm: SVT ECG Impression: SVT Comment This EKG demonstrates SVT and an abrupt change from the A. fib RVR from the prior EKG. No overt ST elevation to suggest STEMI. EKG #3: EKG Time: 09:12 Rate: 72 Rhythm: V.Fib ECG Impression: Atrial Fibrillation Comment This EKG demonstrates rhythm changing after administration of adenosine 12 mg IV. No overt ST elevation. Atrial fibrillation with significantly decreased rate. EKG #4: EKG Time: 09:13 Rate: 82 Rhythm: Normal Sinus Comment Sinus rhythm with no ST elevation. Nondiagnostic subtle ST depression. No abnormal intervals or axis deviation. Diagnostic Imaging Diagonstic Imaging: Xray Plain Films/CT/US/NM/MRI: chest Comments NAME: JENNIE JAMES MED REC#: [id number] PT STATUS: REG ER : 1940 PHYSICIAN: LUCRETIA KOHLER MD ADMIT DATE: 05/16/21/ER Signed Date of Exam:05/16/21 CHEST 1 VIEW, AP/PA ONLY INDICATION: Chest pain. EXAMINATION: Chest 05/16/2021 COMPARISON: 05/12/2021 FINDINGS: The cardiomediastinal silhouette is unremarkable. The pulmonary vasculature is within normal limits. The lungs and pleural spaces are clear. IMPRESSION: No evidence of an acute cardiopulmonary process. Dictated by: Dictated on workstation # [id number] Dict: 05/16/21 0952 Trans: 05/16/21 1300 CVB [id number] Interpreted by: PRETTY HEIN MD Electronically signed by: PRETTY HEIN MD 05/16/21 1300 Departure Impression Primary Impression: Atrial fibrillation with RVR Additional Impressions: Paroxysmal atrial fibrillation SVT (supraventricular tachycardia) Hypomagnesemia Disposition: 01 HOME, SELF-CARE Condition: Improved Departure-Patient Inst. Decision time for Depature: 10:55 Referrals: SHARON SHI MD (PCP/Family) Primary Care Physician Patient Instructions: Atrial Fibrillation Add. Discharge Instructions: When you return home take your digoxin and other morning medications. Increase your magnesium to twice daily dosing. A new prescription is being provided for you. Call Dr. Sherman's office first thing tomorrow morning to arrange follow-up. You should be seen in the clinic next week. Start Eliquis (blood thinner) twice daily. Your first dose was given in the ER. Take your next dose tonight. Be careful with activities that could cause injury while you are on Eliquis because this blood thinner increases risk of bleeding. Please be seen in the ER if you ever have any head injury or other possible serious injury while on Eliquis. Report to the ER immediately or call 911 if you have any unusual bleeding while on Eliquis. If rapid heart rate occurs again, you can try Valsalva and icing your face as previously directed. If this is not effective in controlling your heart rate, or if you have additional symptoms such as shortness of breath or chest pain, please return to the emergency room. Alternatively you may call 911. Call with questions or concerns. Return to the ER if you have any other worsening of condition. All discharge instructions reviewed with patient and/or family. Voiced understanding. Scripts Magnesium Oxide (Magnesium Oxide) 400 Mg Tablet 400 MG PO BID, #60 TAB Prov: LCURETIA KOHLER MD 05/16/21 Apixaban (Eliquis) 5 Mg Tablet 5 MG PO BID, #60 TAB Prov: LUCRETIA KOHLER MD 05/16/21 Copy Copies To 1: BILL SHERMAN MD Copies To 2: SHARON SHI MD, JOSHUA T MD May 16, 2021 11:07
[2021-05-16] MEDS ORDERED: APIX5TAB PO (11:08)
[2021-05-16] MEDS ORDERED: MGX400T PO (11:08)
[2021-05-16 11:20] VITALS: BP 126/72
[2021-05-16] MEDS ORDERED: ADENOSINE 6 MG/2 ML (ADENOCARD) VIAL IV ONE (14:00)
== END 2021-05-16 11:20 | disposition home or self-care (01) ==
LOC: ER 09:08 → EDUNIT# 09:08 → ER 11:20
DX: I48.20 Chronic atrial fibrillation, unspecified (principal); I47.1 Supraventricular tachycardia; E83.42 Hypomagnesemia; J44.9 Chronic obstructive pulmonary disease, unspecified; I10 Essential (primary) hypertension; I25.10 Atherosclerotic heart disease of native coronary artery without angina pectoris; E78.00 Pure hypercholesterolemia, unspecified; E11.9 Type 2 diabetes mellitus without complications; Z87.891 Personal history of nicotine dependence; Z79.84 Long term (current) use of oral hypoglycemic drugs; Z79.899 Other long term (current) drug therapy; Z79.82 Long term (current) use of aspirin
CPT/HCPCS: 36415; 71045; 80053; 80162; 83735; 83874; 84443; 84484; 85025; 85610; 85730; 93005; 93041

== ENCOUNTER 2021-09-23 01:52 | Emergency (ER) | payer MEDICARE ==
[~2021-09-23] VITALS: Ht 168 cm; Wt 65.9 kg
[2021-09-23 01:52] VITALS: BP 122/87
[~2021-09-23 01:52] MED LIST changes: +APIX5TAB PO; +POTA-179 PO; -POTA20TA15 PO
[2021-09-23] MEDS ORDERED: ADENOSINE 6 MG/2 ML (ADENOCARD) VIAL IV ONE ×2 (02:30)
[2021-09-23 02:31] LABS: BASOPHILS # (AUTO) 0.1 10^3/uL (0.0-0.1); BASOPHILS % (AUTO) 1 % (0-10); EOSINOPHILS # (AUTO) 0.3 10^3/uL (0.0-0.3); EOSINOPHILS % (AUTO) 3 % (0-10); HEMATOCRIT 41 % (35-52); HEMOGLOBIN 13.6 g/dL (11.5-16.0); LYMPHOCYTES # (AUTO) 1.6 10^3/uL (1.0-4.0); LYMPHOCYTES % (AUTO) 17 % (12-44); MEAN CORPUSCULAR HEMOGLOBIN 31 pg (25-34); MEAN CORPUSCULAR HGB CONC 33 g/dL (32-36); MEAN CORPUSCULAR VOLUME 92 fL (80-99); MEAN PLATELET VOLUME 9.3 fL (9.0-12.2); MONOCYTES # (AUTO) 0.7 10^3/uL (0.0-1.0); MONOCYTES % (AUTO) 7 % (0-12); NEUTROPHILS # (AUTO) 6.6 10^3/uL (1.8-7.8); NEUTROPHILS % (AUTO) 71 % (42-75); PLATELET COUNT 300 10^3/uL (130-400); WHITE BLOOD COUNT 9.3 10^3/uL (4.3-11.0)
[2021-09-23 02:40] LABS: ALBUMIN 4.3 GM/DL (3.2-4.5); POTASSIUM 4.1 MMOL/L (3.6-5.0)
[2021-09-23 02:41] LABS: CALCIUM 10.3 MG/DL (8.5-10.1)
[2021-09-23 02:42] LABS: INR 1.1 (0.8-1.4); PROTHROMBIN TIME PATIENT 14.9 SEC (12.2-14.7); TOTAL PROTEIN 7.7 GM/DL (6.4-8.2)
[2021-09-23 02:44] LABS: BILIRUBIN,TOTAL 0.4 MG/DL (0.1-1.0)
[2021-09-23 02:46] LABS: CREATININE SERUM 1.25 MG/DL (0.60-1.30)
[2021-09-23 02:49] LABS: MAGNESIUM 1.9 MG/DL (1.6-2.4)
--- NOTE | 2021-09-23 02:58 | ED Cardiac General ---
History of Present Illness General Stated Complaint: SVT Source: patient, old records Exam Limitations: no limitations History of Present Illness Date Seen by Provider: Sep 23, 2021 Time Seen by Provider: 01:55 Initial Comments This 80-year-old woman presents to the emergency room with regular tachycardia. She has history of both SVT had atrial fibrillation. She believes this is SVT. She attempted Valsalva maneuvers without resolution at home. She denies any chest pain or shortness of breath. She has mild lightheadedness. She is alert and oriented and not in distress. Allergies and Home Medications Allergies Coded Allergies: codeine (Verified Allergy, Unknown, 01/03/17) Patient Home Medication List Home Medication List Reviewed: Yes Apixaban (Eliquis) 5 Mg Tablet, 5 MG PO BID Prescribed by: LUCRETIA FREITAS on 05/16/21 1108 Aspirin (Aspirin EC) 81 Mg Tablet.dr, 81 MG PO HS, (Reported) Entered as Reported by: GERARD COBB on 03/20/17837 Digoxin (Digoxin) 125 Mcg Tablet, 125 MCG PO DAILY, (Reported) Entered as Reported by: GERARD COBB on 03/20/17837 Digoxin (Digoxin) 250 Mcg Tablet, 250 MCG PO DAILY Prescribed by: RUBY BALDERAS on 01/12/18 2142 Fluticasone/Salmeterol (Advair 250-50 Diskus) 1 Each Blst.w.dev, 1 PUFF IH BID, (Reported) Entered as Reported by: GERARD COBB on 03/20/17837 Hydrochlorothiazide (Hydrochlorothiazide) 25 Mg Tablet, 25 MG PO DAILY, (Reported) Entered as Reported by: GERARD COBB on 03/20/17837 Ipratropium/Albuterol Sulfate (Iprat-Albut 0.5-3(2.5) mg/3 ml) 3 Ml Ampul.neb, 3 ML IH QID, (Reported) Entered as Reported by: GERARD COBB on 03/20/17837 Magnesium Oxide (Magnesium Oxide) 400 Mg Tablet, 400 MG PO DAILY, (Reported) Entered as Reported by: GERARD COBB on 03/20/17837 Magnesium Oxide (Magnesium Oxide) 400 Mg Tablet, 400 MG PO BID Prescribed by: CISCO FOWLER on 05/29/19 1430 Magnesium Oxide (Magnesium Oxide) 400 Mg Tablet, 400 MG PO BID Prescribed by: LUCRETIA FREITAS on 05/16/21 1108 Metformin HCl (Metformin HCl) 500 Mg Tablet, 500 MG PO BID, (Reported) Entered as Reported by: GERARD COBB on 03/20/17 0838 Metoprolol Tartrate (Metoprolol Tartrate) 50 Mg Tablet, 50 MG PO TID, (Reported) Entered as Reported by: GERARD COBB on 03/20/17 08 Potassium Chloride (Potassium Chloride) 20 Meq Tab.er.prt, 20 MEQ PO BID Prescribed by: RUBY BALDERAS on 01/12/18 214 Potassium Chloride (Potassium Chloride) 10 Meq Tablet.er, 10 MEQ PO DAILY Prescribed by: CISCO FOWLER on 05/29/19 1430 Simvastatin (Zocor) 80 Mg Tablet, 80 MG PO HS, (Reported) Entered as Reported by: GERARD COBB on 03/20/17837 Review of Systems Review of Systems Constitutional: no symptoms reported EENTM: No Symptoms Reported Respiratory: No Symptoms Reported Cardiovascular: See HPI Gastrointestinal: No Symptoms Reported Genitourinary: No Symptoms Reported Musculoskeletal: no symptoms reported Skin: no symptoms reported Psychiatric/Neurological: No Symptoms Reported Endocrine: No Symptoms Reported Past Cpiyhpr-Ebrksb-Gwjuzx Hx Patient Social History Tobacco Use?: No Use of E-Cig and/or Vaping dev: No Alcohol Use?: No Immunizations Up To Date Tetanus Booster (TDap): Unknown PED Vaccines UTD: No Seasonal Allergies Seasonal Allergies: No Past Medical History Surgeries: Yes (CARDIAC CATH-STENT X 1 IN 2008; BILATERAL CATARACTS) Cardiac, Coronary Stent, Eye Surgery Respiratory: Yes (O2 AT HS) COPD Currently Using CPAP: No Currently Using BIPAP: No Cardiac: Yes (SVT) Aneurysm, Atrial Fibrillation, Coronary Artery Disease, High Cholesterol, Hypertension, Irregular Heartbeat, Peripheral Vascular 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) 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 Sexually Transmitted Disease: No HIV/AIDS: No Genitourinary: No Gastrointestinal: No Musculoskeletal: Yes Arthritis Endocrine: Yes Diabetes, Non-Insulin dep HEENT: Yes (BILATERAL CATARACT SURGERY) Cataract Loss of Vision: Denies Hearing Impairment: Denies Cancer: No Psychosocial: No Integumentary: No Blood Disorders: No Adverse Reaction/Blood Tranf: No Family Medical History Cardiovascular disease 19 FATHER 19 MOTHER G8 SISTER Diabetes mellitus G8 SISTER FH: cirrhosis G8 SISTER Hypertension 19 FATHER 19 MOTHER Physical Exam Vital Signs Vital Signs - First Documented 09/23/21 01:52 Temp 36.7 Pulse 154 Resp 22 B/P (MAP) 122/87 (99) Pulse Ox 99 Capillary Refill : Height, Weight, BMI Height: 5'6.00" Weight: 150lbs. 0oz. 68.556959tq; 26.00 BMI Method:Stated General Appearance: No Apparent Distress, WD/WN HEENT: Normal ENT Inspection Neck: Normal Inspection Respiratory: Lungs Clear, Normal Breath Sounds, No Accessory Muscle Use Cardiovascular: No Edema, Tachycardia (Regular) Extremity: Normal Inspection, No Pedal Edema Neurologic/Psychiatric: Alert, Oriented x3, Normal Mood/Affect Skin: Normal Color, Warm/Dry Progress/Results/Core Measures Results/Orders Lab Results Laboratory Tests Test 09/23/21 01:55 Range/Units White Blood Count 9.3 4.3-11.0 10^3/uL Red Blood Count 4.43 3.80-5.11 10^6/uL Hemoglobin 13.6 11.5-16.0 g/dL Hematocrit 41 35-52 % Mean Corpuscular Volume 92 80-99 fL Mean Corpuscular Hemoglobin 31 25-34 pg Mean Corpuscular Hemoglobin Concent 33 32-36 g/dL Red Cell Distribution Width 14.4 10.0-14.5 % Platelet Count 300 130-400 10^3/uL Mean Platelet Volume 9.3 9.0-12.2 fL Immature Granulocyte % (Auto) 1 % Neutrophils (%) (Auto) 71 42-75 % Lymphocytes (%) (Auto) 17 12-44 % Monocytes (%) (Auto) 7 0-12 % Eosinophils (%) (Auto) 3 0-10 % Basophils (%) (Auto) 1 0-10 % Neutrophils # (Auto) 6.6 1.8-7.8 10^3/uL Lymphocytes # (Auto) 1.6 1.0-4.0 10^3/uL Monocytes # (Auto) 0.7 0.0-1.0 10^3/uL Eosinophils # (Auto) 0.3 0.0-0.3 10^3/uL Basophils # (Auto) 0.1 0.0-0.1 10^3/uL Immature Granulocyte # (Auto) 0.1 0.0-0.1 10^3/uL Prothrombin Time 14.9 H 12.2-14.7 SEC INR Comment 1.1 0.8-1.4 Activated Partial Thromboplast Time 41 H 24-35 SEC Sodium Level 136 135-145 MMOL/L Potassium Level 4.1 3.6-5.0 MMOL/L Chloride Level 98 98-107 MMOL/L Carbon Dioxide Level 22 21-32 MMOL/L Anion Gap 16 H 5-14 MMOL/L Blood Urea Nitrogen 25 H 7-18 MG/DL Creatinine 1.25 0.60-1.30 MG/DL Estimat Glomerular Filtration Rate 43 BUN/Creatinine Ratio 20 Glucose Level 242 H 70-105 MG/DL Calcium Level 10.3 H 8.5-10.1 MG/DL Corrected Calcium 10.1 8.5-10.1 MG/DL Magnesium Level 1.9 1.6-2.4 MG/DL Total Bilirubin 0.4 0.1-1.0 MG/DL Aspartate Amino Transf (AST/SGOT) 31 5-34 U/L Alanine Aminotransferase (ALT/SGPT) 36 0-55 U/L Alkaline Phosphatase 64 40-136 U/L Myoglobin 106.8 H 10.0-92.0 NG/ML Troponin I < 0.028 <0.028 NG/ML Total Protein 7.7 6.4-8.2 GM/DL Albumin 4.3 3.2-4.5 GM/DL Digoxin Level 0.47 L 0.80-2.00 NG/ML My Orders Orders - LUCRETIA KOHLER MD Ed Iv/Invasive Line Start (09/23/21 01:55) Ekg Tracing (09/23/21 01:55) Monitor-Rhythm Ecg Trace Only (09/23/21 01:55) Cbc With Automated Diff (09/23/21 02:26) Magnesium (09/23/21 02:26) Chest 1 View, Ap/Pa Only (09/23/21 02:26) Ekg Tracing (09/23/21 02:26) Comprehensive Metabolic Panel (09/23/21 02:26) Myoglobin Serum (09/23/21 02:26) Protime With Inr (09/23/21 02:26) Partial Thromboplastin Time (09/23/21 02:26) O2 (09/23/21 02:26) Lipid Panel (09/24/21 06:00) Ed Iv/Invasive Line Start (09/23/21 02:26) Troponin I Laura (09/23/21 02:26) Adenosine Injection (Adenocard Injection (09/23/21 02:30) Adenosine Injection (Adenocard Injection (09/23/21 02:30) Ekg Tracing (09/23/21 02:41) Digoxin (09/23/21 02:58) Vital Signs/I&O 09/23/21 01:52 Temp 36.7 Pulse 154 Resp 22 B/P (MAP) 122/87 (99) Pulse Ox 99 Progress Progress Note : Progress Note Valsalva maneuvers did not abort the SVT. Adenosine 6 mg IV push was ad ministered and resulted in conversion to normal sinus rhythm. Patient's symptoms resolved. Labs were unremarkable. She was discharged in stable condition. EKG #1: EKG Time: 01:50 Rate: 153 Rhythm: SVT Intervals: Normal ECG Impression: SVT Comment SVT with no ST elevation or depression. EKG #2: EKG Time: 02:51 Comment This rhythm strip demonstrates cardiac pause associated with adenosine and conversion to sinus rhythm. EKG #3: EKG Time: 02:52 Rate: 83 Rhythm: Normal Sinus Intervals: Normal ECG Impression: Normal Comment No normal sinus rhythm with no diagnostically significant ST elevation or depression. No abnormal intervals or axis deviation. Departure Impression Primary Impression: SVT (supraventricular tachycardia) Disposition: 01 HOME, SELF-CARE Condition: Improved Departure-Patient Inst. Decision time for Depature: 03:24 Referrals: SHARON BROCK MD (PCP/Family) Primary Care Physician Patient Instructions: Supraventricular Tachycardia (SVT) Add. Discharge Instructions: Continue your medications as previously prescribed. Follow-up with Dr. Sherman and Dr. Brock tomorrow by phone for further instructions. Return to care if you have worsening symptoms of tachycardia and the Valsalva maneuvers do not work. Call with questions or concerns. Copy Copies To 1: SAHRON BROCK MD Copies To 2: BILL SHERMAN MD, JOSHUA T MD Sep 23, 2021 02:58
--- NOTE | 2021-09-23 05:11 | Diagnostic Imaging Report ---
INDICATION: 80-year-old female with chest pain, supraventricular tachycardia. COMPARISONS: 05/16/2021 FINDINGS: Single view of the chest shows normal heart, pulmonary vasculature, pleura and diaphragms with no focal opacities. The chest is otherwise senescent with COPD and chronic parenchymal changes. No consolidations are seen. There is no effusion or pneumothorax. There is an old healed left humeral neck fracture showing deformity. Right shoulder arthropathy noted. IMPRESSION: Senescent chest with COPD and chronic parenchymal changes but no acute cardiopulmonary disease. Dictated by: Dictated on workstation # [id number]
== END 2021-09-23 03:42 | disposition home or self-care (01) ==
LOC: EDUNIT# 01:52 → ER 01:53
DX: I47.1 Supraventricular tachycardia (principal)
CPT/HCPCS: 36415; 71045; 80053; 80162; 83735; 83874; 84484; 85025; 85610; 85730; 93005

== ENCOUNTER 2021-10-09 19:09 | Emergency (ER) | payer MEDICARE ==
[2021-10-09 19:29] LABS: BASOPHILS % (AUTO) 0 % (0-10); EOSINOPHILS # (AUTO) 0.3 10^3/uL (0.0-0.3); EOSINOPHILS % (AUTO) 3 % (0-10); HEMATOCRIT 41 % (35-52); HEMOGLOBIN 13.5 g/dL (11.5-16.0); LYMPHOCYTES # (AUTO) 2.5 10^3/uL (1.0-4.0); LYMPHOCYTES % (AUTO) 28 % (12-44); MEAN CORPUSCULAR HEMOGLOBIN 31 pg (25-34); MEAN CORPUSCULAR HGB CONC 33 g/dL (32-36); MEAN CORPUSCULAR VOLUME 92 fL (80-99); MEAN PLATELET VOLUME 8.9 fL (9.0-12.2); MONOCYTES # (AUTO) 0.7 10^3/uL (0.0-1.0); MONOCYTES % (AUTO) 8 % (0-12); NEUTROPHILS # (AUTO) 5.5 10^3/uL (1.8-7.8); NEUTROPHILS % (AUTO) 61 % (42-75); PLATELET COUNT 226 10^3/uL (130-400); WHITE BLOOD COUNT 9.1 10^3/uL (4.3-11.0)
[2021-10-09] MEDS ORDERED: ADENOSINE 6 MG/2 ML (ADENOCARD) VIAL IV ONE ×3 (19:30→20:15)
--- NOTE | 2021-10-09 19:35 | Diagnostic Imaging Report ---
EXAMINATION: Chest 1 view. HISTORY: Chest pain. COMPARISON: 09/23/2021. FINDINGS: The lungs are clear without edema or pneumonia. No pleural effusion or pneumothorax. Heart size is normal. IMPRESSION: Clear lungs. Dictated by: Dictated on workstation # [id number]
[2021-10-09 19:43] LABS: FIBRIN DEGRADATION PRODUCTS 0.38 UG/ML (0.00-0.49); INR 1.1 (0.8-1.4); PROTHROMBIN TIME PATIENT 14.4 SEC (12.2-14.7)
[2021-10-09 19:47] LABS: ALBUMIN 4.3 GM/DL (3.2-4.5); BILIRUBIN,TOTAL 0.4 MG/DL (0.1-1.0); CALCIUM 9.4 MG/DL (8.5-10.1); CREATININE SERUM 1.29 MG/DL (0.60-1.30); MAGNESIUM 1.4 MG/DL (1.6-2.4); POTASSIUM 3.6 MMOL/L (3.6-5.0); TOTAL PROTEIN 7.6 GM/DL (6.4-8.2)
--- NOTE | 2021-10-09 20:05 | ED Cardiac General ---
History of Present Illness General Chief Complaint: Cardiac/General Problems Stated Complaint: RAPID HEART RATE Source: patient Exam Limitations: no limitations History of Present Illness Date Seen by Provider: Oct 09, 2021 Time Seen by Provider: 19:20 Allergies and Home Medications Allergies Coded Allergies: codeine (Verified Allergy, Unknown, 01/03/17) Patient Home Medication List Apixaban (Eliquis) 5 Mg Tablet, 5 MG PO BID Prescribed by: LUCRETIA FREITAS on 05/16/21 1108 Aspirin (Aspirin EC) 81 Mg Tablet.dr, 81 MG PO HS, (Reported) Entered as Reported by: GERARD COBB on 03/20/17 08 Digoxin (Digoxin) 125 Mcg Tablet, 125 MCG PO DAILY, (Reported) Entered as Reported by: GERARD COBB on 03/20/17837 Digoxin (Digoxin) 250 Mcg Tablet, 250 MCG PO DAILY Prescribed by: RUBY BALDERAS on 01/12/182141 Fluticasone/Salmeterol (Advair 250-50 Diskus) 1 Each Blst.w.dev, 1 PUFF IH BID, (Reported) Entered as Reported by: GERARD COBB on 03/20/17 08 Hydrochlorothiazide (Hydrochlorothiazide) 25 Mg Tablet, 25 MG PO DAILY, (Reported) Entered as Reported by: GERARD COBB on 03/20/17 08 Ipratropium/Albuterol Sulfate (Iprat-Albut 0.5-3(2.5) mg/3 ml) 3 Ml Ampul.neb, 3 ML IH QID, (Reported) Entered as Reported by: GERARD COBB on 03/20/17 08 Magnesium Oxide (Magnesium Oxide) 400 Mg Tablet, 400 MG PO DAILY, (Reported) Entered as Reported by: GERARD COBB on 03/20/17 08 Magnesium Oxide (Magnesium Oxide) 400 Mg Tablet, 400 MG PO BID Prescribed by: CISCO FOWLER on 05/29/19 1430 Magnesium Oxide (Magnesium Oxide) 400 Mg Tablet, 400 MG PO BID Prescribed by: LUCRETIA FREITAS on 05/16/21 1108 Metformin HCl (Metformin HCl) 500 Mg Tablet, 500 MG PO BID, (Reported) Entered as Reported by: GERARD COBB on 03/20/17 08 Metoprolol Tartrate (Metoprolol Tartrate) 50 Mg Tablet, 50 MG PO TID, (Reported) Entered as Reported by: GERARD COBB on 03/20/17 0838 Potassium Chloride (Potassium Chloride) 20 Meq Tab.er.prt, 20 MEQ PO BID Prescribed by: RUBY BALDERAS on 01/12/18 2142 Potassium Chloride (Potassium Chloride) 10 Meq Tablet.er, 10 MEQ PO DAILY Prescribed by: CISCO FOWLER on 05/29/19 1430 Simvastatin (Zocor) 80 Mg Tablet, 80 MG PO HS, (Reported) Entered as Reported by: GERARD COBB on 03/20/17 0838 Past Fdtgtrz-Jvlcdv-Yiyljz Hx Immunizations Up To Date Tetanus Booster (TDap): Unknown PED Vaccines UTD: No First/Initial COVID19 Vaccinat: 2020 Second COVID19 Vaccination Toney: 2020 Seasonal Allergies Seasonal Allergies: No Past Medical History Surgeries: Yes (CARDIAC CATH-STENT X 1 IN 2008; BILATERAL CATARACTS) Cardiac, Coronary Stent, Eye Surgery Respiratory: Yes (O2 AT HS) COPD Currently Using CPAP: No Currently Using BIPAP: No Cardiac: Yes (SVT) Aneurysm, Atrial Fibrillation, Coronary Artery Disease, High Cholesterol, Hypertension, Irregular Heartbeat, Peripheral Vascular 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) 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 Sexually Transmitted Disease: No HIV/AIDS: No Genitourinary: No Gastrointestinal: No Musculoskeletal: Yes Arthritis Endocrine: Yes Diabetes, Non-Insulin dep HEENT: Yes (BILATERAL CATARACT SURGERY) Cataract Loss of Vision: Denies Hearing Impairment: Denies Cancer: No Psychosocial: No Integumentary: No Blood Disorders: No Adverse Reaction/Blood Tranf: No Family Medical History Cardiovascular disease 19 FATHER 19 MOTHER G8 SISTER Diabetes mellitus G8 SISTER FH: cirrhosis G8 SISTER Hypertension 19 FATHER 19 MOTHER Physical Exam Vital Signs Capillary Refill : Height, Weight, BMI Height: 5'6.00" Weight: 150lbs. 0oz. 68.006292ke; 23.00 BMI Method:Stated Progress/Results/Core Measures Results/Orders Lab Results Laboratory Tests Test 10/09/21 19:20 Range/Units White Blood Count 9.1 4.3-11.0 10^3/uL Red Blood Count 4.42 3.80-5.11 10^6/uL Hemoglobin 13.5 11.5-16.0 g/dL Hematocrit 41 35-52 % Mean Corpuscular Volume 92 80-99 fL Mean Corpuscular Hemoglobin 31 25-34 pg Mean Corpuscular Hemoglobin Concent 33 32-36 g/dL Red Cell Distribution Width 14.4 10.0-14.5 % Platelet Count 226 130-400 10^3/uL Mean Platelet Volume 8.9 L 9.0-12.2 fL Immature Granulocyte % (Auto) 0 % Neutrophils (%) (Auto) 61 42-75 % Lymphocytes (%) (Auto) 28 12-44 % Monocytes (%) (Auto) 8 0-12 % Eosinophils (%) (Auto) 3 0-10 % Basophils (%) (Auto) 0 0-10 % Neutrophils # (Auto) 5.5 1.8-7.8 10^3/uL Lymphocytes # (Auto) 2.5 1.0-4.0 10^3/uL Monocytes # (Auto) 0.7 0.0-1.0 10^3/uL Eosinophils # (Auto) 0.3 0.0-0.3 10^3/uL Basophils # (Auto) 0.0 0.0-0.1 10^3/uL Immature Granulocyte # (Auto) 0.0 0.0-0.1 10^3/uL Prothrombin Time 14.4 12.2-14.7 SEC INR Comment 1.1 0.8-1.4 Activated Partial Thromboplast Time 38 H 24-35 SEC D-Dimer 0.38 0.00-0.49 UG/ML Sodium Level 138 135-145 MMOL/L Potassium Level 3.6 3.6-5.0 MMOL/L Chloride Level 100 98-107 MMOL/L Carbon Dioxide Level 19 L 21-32 MMOL/L Anion Gap 19 H 5-14 MMOL/L Blood Urea Nitrogen 33 H 7-18 MG/DL Creatinine 1.29 0.60-1.30 MG/DL Estimat Glomerular Filtration Rate 42 BUN/Creatinine Ratio 26 Glucose Level 159 H 70-105 MG/DL Calcium Level 9.4 8.5-10.1 MG/DL Corrected Calcium 9.2 8.5-10.1 MG/DL Magnesium Level 1.4 L 1.6-2.4 MG/DL Total Bilirubin 0.4 0.1-1.0 MG/DL Aspartate Amino Transf (AST/SGOT) 24 5-34 U/L Alanine Aminotransferase (ALT/SGPT) 28 0-55 U/L Alkaline Phosphatase 78 40-136 U/L Myoglobin 144.2 H 10.0-92.0 NG/ML Troponin I < 0.028 <0.028 NG/ML B-Type Natriuretic Peptide 119.6 H <100.0 PG/ML Total Protein 7.6 6.4-8.2 GM/DL Albumin 4.3 3.2-4.5 GM/DL My Orders Orders - ESHA ROBERTSON INVESTIGATOR CLAIMS Cbc With Automated Diff (10/09/21 19:16) Magnesium (10/09/21 19:16) Chest 1 View, Ap/Pa Only (10/09/21 19:16) Ekg Tracing (10/09/21 19:16) Comprehensive Metabolic Panel (10/09/21 19:16) Myoglobin Serum (10/09/21 19:16) Protime With Inr (10/09/21 19:16) Partial Thromboplastin Time (10/09/21 19:16) O2 (10/09/21 19:16) Monitor-Rhythm Ecg Trace Only (10/09/21 19:16) Lipid Panel (10/10/21 06:00) Ed Iv/Invasive Line Start (10/09/21 19:16) Bnp Power (10/09/21 19:16) Troponin I Laura (10/09/21 19:16) Adenosine Injection (Adenocard Injection (10/09/21 19:30) Fibrin Degradation Products (10/09/21 19:20) Adenosine Injection (Adenocard Injection (10/09/21 19:54) Medications Given in ED Current Medications Medications Dose Ordered Sig/Melanie Route Start Time Stop Time Status Last Admin Dose Admin Adenosine 6 mg ONCE ONCE IV 10/09/21 19:30 10/09/21 19:31 DC 10/09/21 19:40 6 MG Departure Impression Primary Impression: SVT (supraventricular tachycardia) Disposition: 01 HOME, SELF-CARE Condition: Improved Departure-Patient Inst. Referrals: SHARON SHI MD (PCP/Family) Primary Care Physician Patient Instructions: Supraventricular Tachycardia (SVT) Add. Discharge Instructions: Plan: 1. Follow up with your primary care provider next week. 2. Continue your Metoprolol as directed. 3. Return to ER for any new or concerning symptoms. All discharge instructions reviewed with patient and/or family. Voiced understanding. ESHA ROBERTSON INVESTIGATOR CLAIMS Oct 09, 2021 20:05
[2021-10-09 20:18] VITALS: BP 109/63
== END 2021-10-09 20:19 | disposition home or self-care (01) ==
LOC: EDUNIT# 19:09 → ER 19:11
DX: I47.1 Supraventricular tachycardia (principal)
CPT/HCPCS: 36415; 71045; 80053; 83735; 83874; 83880; 84484; 85025; 85379; 85610; 85730; 93005; 93041

== ENCOUNTER 2022-03-12 20:19 | Emergency (ER) | payer MEDICARE ==
[~2022-03-12] VITALS: Ht 175 cm; Wt 83.0 kg
[2022-03-12] MEDS ORDERED: ADENOSINE 6 MG/2 ML (ADENOCARD) VIAL IV ONE (20:27)
--- NOTE | 2022-03-12 20:38 | ED Cardiac General ---
History of Present Illness General Chief Complaint: Cardiac/General Problems Stated Complaint: SVT Source: patient History of Present Illness Date Seen by Provider: Mar 12, 2022 Time Seen by Provider: 20:24 Initial Comments PT ARRIVES VIA EMS FROM HOME C/O RAPID HEART RATE BEGAN APPROXIMATELY 1 1/2 HOURS AGO, WHILE SITTING--HAD JUST FINISHED EATING HAS HISTORY OF SVT, AND TAKES METOPROLOL--TOOK HER NORMAL DOSE OF IT ABOUT 2 HOURS AGO, ALONG WITH HER NORMAL DOSE OF FARXIGA NO IMPROVEMENT WITH VAGAL MANEUVERS SLIGHT SHORTNESS OF BREATH BROKE OUT IN A LITTLE BIT OF A SWEAT NO DIZZINESS OR SYNCOPE NO GI SYMPTOMS NO SWELLING IN LEGS /FEET PT IS NOT ON ANY OTHER MEDICATIONS, DOES NOT TAKE ASPIRIN OR ANY ANTICOAGULATION. NO MISSED DOSES OF MEDICATIONS OR CHANGES IN MEDICATIONS. PT HAS HAD THIS PROBLEM SINCE SHE WAS IN HER 20'S NO HISTORY OF CARDIOVERSION OR ANY ABLATION STATES SHE ALWAYS GETS ADENOSINE AND IT ALWAYS WORKS. PCP: DR. SHI TEST ENGINE EVALUATOR: DR. DENG Allergies and Home Medications Allergies Coded Allergies: codeine (Verified Allergy, Unknown, 01/03/17) Patient Home Medication List Home Medication List Reviewed: Yes Apixaban (Eliquis) 5 Mg Tablet, 5 MG PO BID Prescribed by: LUCRETIA FREITAS on 05/16/21 1108 Aspirin (Aspirin EC) 81 Mg Tablet., 81 MG PO HS, (Reported) Entered as Reported by: GERARD COBB on 03/20/17837 Digoxin (Digoxin) 125 Mcg Tablet, 125 MCG PO DAILY, (Reported) Entered as Reported by: GERARD COBB on 03/20/17837 Digoxin (Digoxin) 250 Mcg Tablet, 250 MCG PO DAILY Prescribed by: RUBY BALDERAS on 01/12/182 Fluticasone/Salmeterol (Advair 250-50 Diskus) 1 Each Blst.w.dev, 1 PUFF IH BID, (Reported) Entered as Reported by: GERARD COBB on 03/20/17837 Hydrochlorothiazide (Hydrochlorothiazide) 25 Mg Tablet, 25 MG PO DAILY, (Reported) Entered as Reported by: GERARD COBB on 03/20/17 08 Ipratropium/Albuterol Sulfate (Iprat-Albut 0.5-3(2.5) mg/3 ml) 3 Ml Ampul.neb, 3 ML IH QID, (Reported) Entered as Reported by: GERARD COBB on 03/20/17837 Magnesium Oxide (Magnesium Oxide) 400 Mg Tablet, 400 MG PO DAILY, (Reported) Entered as Reported by: GERARD COBB on 03/20/17837 Magnesium Oxide (Magnesium Oxide) 400 Mg Tablet, 400 MG PO BID Prescribed by: CISCO FOWLER on 05/29/19 1430 Magnesium Oxide (Magnesium Oxide) 400 Mg Tablet, 400 MG PO BID Prescribed by: LUCRETIA FREITAS on 05/16/21 1108 Metformin HCl (Metformin HCl) 500 Mg Tablet, 500 MG PO BID, (Reported) Entered as Reported by: GERARD COBB on 03/20/17837 Metoprolol Tartrate (Metoprolol Tartrate) 50 Mg Tablet, 50 MG PO TID, (Reported) Entered as Reported by: GERARD COBB on 03/20/17837 Potassium Chloride (Potassium Chloride) 20 Meq Tab.er.prt, 20 MEQ PO BID Prescribed by: RUBY BALDERAS on 01/12/182141 Potassium Chloride (Potassium Chloride) 10 Meq Tablet.er, 10 MEQ PO DAILY Prescribed by: CISCO FOWLER on 05/29/19 1430 Simvastatin (Zocor) 80 Mg Tablet, 80 MG PO HS, (Reported) Entered as Reported by: GERARD COBB on 03/20/17837 Review of Systems Review of Systems Constitutional: see HPI, diaphoresis EENTM: No Symptoms Reported Respiratory: See HPI, Shortness of Air Cardiovascular: See HPI; Denies Chest Pain, Denies Edema; Irregular Heart Rate; Denies Lightheadedness; Palpitations; Denies Syncope Gastrointestinal: See HPI Genitourinary: No Symptoms Reported Musculoskeletal: no symptoms reported Skin: no symptoms reported Psychiatric/Neurological: No Symptoms Reported Endocrine: No Symptoms Reported Hematologic/Lymphatic: No Symptoms Reported Past Kxgjona-Phcdvi-Wcttfh Hx Patient Social History Tobacco Use?: No Smoking Status: Never a Smoker Smokeless Tobacco Frequency: Never a User Use of E-Cig and/or Vaping dev: No Use of E-Cig and/or Vaping Randall: Never a User Substance use?: No Alcohol Use?: No Immunizations Up To Date Tetanus Booster (TDap): Unknown PED Vaccines UTD: No First/Initial COVID19 Vaccinat: 2021 Second COVID19 Vaccination Toney: 2020 Seasonal Allergies Seasonal Allergies: No Past Medical History Surgery/Hospitalization HX: AFIB, SVT, HTN Surgeries: Yes (CARDIAC CATH-STENT X 1 IN 2008; BILATERAL CATARACTS) Cardiac, Coronary Stent, Eye Surgery Respiratory: Yes (O2 AT HS) COPD Currently Using CPAP: No Currently Using BIPAP: No Cardiac: Yes (SVT; STENT X 1) Aneurysm, Coronary Artery Disease, High Cholesterol, Hypertension, Irregular Heartbeat, Peripheral Vascular 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) 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 Sexually Transmitted Disease: No HIV/AIDS: No Genitourinary: No Gastrointestinal: No Musculoskeletal: Yes Arthritis Endocrine: Yes Diabetes, Non-Insulin dep HEENT: Yes (BILATERAL CATARACT SURGERY) Cataract Loss of Vision: Denies Hearing Impairment: Denies Cancer: No Psychosocial: No Integumentary: No Blood Disorders: No Adverse Reaction/Blood Tranf: No Family Medical History Cardiovascular disease 19 FATHER 19 MOTHER G8 SISTER Diabetes mellitus G8 SISTER FH: cirrhosis G8 SISTER Hypertension 19 FATHER 19 MOTHER Physical Exam Vital Signs Vital Signs - First Documented Capillary Refill : Height, Weight, BMI Height: 5'6.00" Weight: 150lbs. 0oz. 68.698226zo; 23.00 BMI Method:Stated General Appearance: No Apparent Distress, WD/WN HEENT: PERRL/EOMI Neck: Normal Inspection; No Carotid Bruit, No JVD Respiratory: Normal Breath Sounds, No Accessory Muscle Use, No Respiratory Distress Cardiovascular: No Edema, No JVD, No Murmur, Normal Peripheral Pulses, Tachycardia Gastrointestinal: Non Tender, Soft Extremity: Normal Inspection, No Calf Tenderness, No Pedal Edema Neurologic/Psychiatric: Alert, Oriented x3, No Motor/Sensory Deficits, Normal Mood/Affect, hand bunch maker II-XII Norm as Tested Skin: Normal Color, Warm/Dry; No Diaphoresis Progress/Results/Core Measures Results/Orders Lab Results Laboratory Tests Test 03/12/22 20:25 Range/Units White Blood Count 8.5 4.3-11.0 10^3/uL Red Blood Count 4.49 3.80-5.11 10^6/uL Hemoglobin 14.1 11.5-16.0 g/dL Hematocrit 41 35-52 % Mean Corpuscular Volume 91 80-99 fL Mean Corpuscular Hemoglobin 31 25-34 pg Mean Corpuscular Hemoglobin Concent 35 32-36 g/dL Red Cell Distribution Width 14.0 10.0-14.5 % Platelet Count 242 130-400 10^3/uL Mean Platelet Volume 9.2 9.0-12.2 fL Immature Granulocyte % (Auto) 1 % Neutrophils (%) (Auto) 63 42-75 % Lymphocytes (%) (Auto) 25 12-44 % Monocytes (%) (Auto) 8 0-12 % Eosinophils (%) (Auto) 3 0-10 % Basophils (%) (Auto) 1 0-10 % Neutrophils # (Auto) 5.4 1.8-7.8 10^3/uL Lymphocytes # (Auto) 2.2 1.0-4.0 10^3/uL Monocytes # (Auto) 0.6 0.0-1.0 10^3/uL Eosinophils # (Auto) 0.3 0.0-0.3 10^3/uL Basophils # (Auto) 0.0 0.0-0.1 10^3/uL Immature Granulocyte # (Auto) 0.0 0.0-0.1 10^3/uL Prothrombin Time 13.8 12.2-14.7 SEC INR Comment 1.0 0.8-1.4 Activated Partial Thromboplast Time 40 H 24-35 SEC Sodium Level 139 135-145 MMOL/L Potassium Level 3.8 3.6-5.0 MMOL/L Chloride Level 99 98-107 MMOL/L Carbon Dioxide Level 24 21-32 MMOL/L Anion Gap 16 H 5-14 MMOL/L Blood Urea Nitrogen 30 H 7-18 MG/DL Creatinine 1.39 H 0.60-1.30 MG/DL Estimat Glomerular Filtration Rate 38 BUN/Creatinine Ratio 22 Glucose Level 173 H 70-105 MG/DL Calcium Level 9.8 8.5-10.1 MG/DL Corrected Calcium 9.6 8.5-10.1 MG/DL Magnesium Level 1.8 1.6-2.4 MG/DL Total Bilirubin 0.3 0.1-1.0 MG/DL Aspartate Amino Transf (AST/SGOT) 16 5-34 U/L Alanine Aminotransferase (ALT/SGPT) 23 0-55 U/L Alkaline Phosphatase 68 40-136 U/L Total Creatine Kinase 93 29-168 U/L Creatine Kinase MB 1.8 <6.6 NG/ML Myoglobin 112.8 H 10.0-92.0 NG/ML Troponin I < 0.028 <0.028 NG/ML B-Type Natriuretic Peptide 47.9 <100.0 PG/ML Total Protein 7.4 6.4-8.2 GM/DL Albumin 4.3 3.2-4.5 GM/DL TSH [place] Testing 4.59 0.35-4.94 UIU/ML My Orders Orders - SUSAN MAR DO Ekg Tracing (03/12/22 20:21) Adenosine Injection (Adenocard Injection (03/12/22 20:27) Ed Iv/Invasive Line Start (03/12/22 20:32) Ekg Tracing (03/12/22 20:32) O2 (03/12/22 20:32) Monitor-Rhythm Ecg Trace Only (03/12/22 20:32) Bnp Laura (03/12/22 20:32) Cbc With Automated Diff (03/12/22 20:32) Comprehensive Metabolic Panel (03/12/22 20:32) Creatine Kinase (03/12/22 20:32) Creatine Kinase Mb (03/12/22 20:32) Magnesium (03/12/22 20:32) Protime With Inr (03/12/22 20:32) Partial Thromboplastin Time (03/12/22 20:32) Thyroid Analyzer (03/12/22 20:32) Myoglobin Serum (03/12/22 20:32) Troponin I Emmons (03/12/22 20:32) Chest 1 View, Ap/Pa Only (03/12/22 20:32) Ekg Tracing (03/12/22 20:32) Medications Given in ED Current Medications Medications Dose Ordered Sig/Melanie Route Start Time Stop Time Status Last Admin Dose Admin Adenosine 6 mg STK-MED ONCE IV 03/12/22 20:27 03/12/22 20:30 DC 03/12/22 20:28 6 MG Vital Signs/I&O 03/12/22 03/12/22 20:20 20:20 Temp 36.0 Pulse 162 Resp 18 B/P (MAP) 147/72 (97) Pulse Ox 95 95 O2 Delivery Room Air Room Air Progress Progress Note : Progress Note GIVEN ADENOSINE 6 MG X 1 DOSE WITH IMMEDIATE CARDIOVERSION PT TOLERATED WELL NO DETERIORATION IN PT'S CONDITION DURING ER STAY PT REMAINED IN NORMAL SINUS RHYTHM FOR THE REMAINDER OF ER STAY PT FEELS COMFORTABLE GOING HOME Initial ECG Impression Date: Mar 12, 2022 Initial ECG Impression Time: 20:26 Initial ECG Rate: 164 Initial ECG Rhythm: SVT (WITH DIFFUSE ST DEPRESSION INFERIOR/LATERALLY) EKG : EKG Time: 20:29 Rate: 58 Comment 2028---AT TIME OF CONVERSION WITH ADENOSINE EKG #3 AT 2030, RATE 94, NSR, WITH DIFFUSE ST DEPRESSION INFERIORLY AND LATERALLY Diagnostic Imaging Comments CXR--PER RADIOLOGIST REPORT AT 2054 FINDINGS: The heart size, mediastinal configuration and pulmonary vascularity are within normal limits. Lung dye with slight hyperinflation and chronic appearing changes. No infiltrate, effusion or pneumothorax. Advanced degenerative changes, perhaps prior traumatic change, of the proximal left humerus and shoulder. IMPRESSION: Negative appearing single view chest. Reviewed: Reviewed by Me Departure Communication (Admissions) 2118--SPOKE WITH DR. SALAZAR, TEST ENGINE EVALUATOR SHIRT HEMMER. HE IS AGREEABLE TO PT GOING HOME AND FOLLOWING UP WITH DR. DENG NEXT WEEK Impression Primary Impression: PSVT (paroxysmal supraventricular tachycardia) Disposition: 01 HOME, SELF-CARE Condition: Improved Departure-Patient Inst. Decision time for Depature: 21:20 Referrals: SHARON SHI MD (PCP/Family) Primary Care Physician BILL DENG MD Patient Instructions: Paroxysmal Supraventricular Tachycardia (DC) Add. Discharge Instructions: CONTINUE YOUR REGULAR MEDICATIONS PRESCRIBED FOLLOW UP WITH DR. DENG NEXT WEEK FOR FURTHER CARE RETURN TO ER IF SYMPTOMS RETURN All discharge instructions reviewed with patient and/or family. Voiced understanding. SUSAN MAR DO Mar 12, 2022 20:38
[2022-03-12 20:39] LABS: BASOPHILS % (AUTO) 1 % (0-10); EOSINOPHILS # (AUTO) 0.3 10^3/uL (0.0-0.3); EOSINOPHILS % (AUTO) 3 % (0-10); HEMATOCRIT 41 % (35-52); HEMOGLOBIN 14.1 g/dL (11.5-16.0); LYMPHOCYTES # (AUTO) 2.2 10^3/uL (1.0-4.0); LYMPHOCYTES % (AUTO) 25 % (12-44); MEAN CORPUSCULAR HEMOGLOBIN 31 pg (25-34); MEAN CORPUSCULAR HGB CONC 35 g/dL (32-36); MEAN CORPUSCULAR VOLUME 91 fL (80-99); MEAN PLATELET VOLUME 9.2 fL (9.0-12.2); MONOCYTES # (AUTO) 0.6 10^3/uL (0.0-1.0); MONOCYTES % (AUTO) 8 % (0-12); NEUTROPHILS # (AUTO) 5.4 10^3/uL (1.8-7.8); NEUTROPHILS % (AUTO) 63 % (42-75); PLATELET COUNT 242 10^3/uL (130-400); WHITE BLOOD COUNT 8.5 10^3/uL (4.3-11.0)
[2022-03-12 20:45] LABS: PROTHROMBIN TIME PATIENT 13.8 SEC (12.2-14.7)
--- NOTE | 2022-03-12 20:49 | Diagnostic Imaging Report ---
INDICATION: Supraventricular tachycardia. TECHNIQUE: Single view chest 8:32 PM. CORRELATION STUDY: 10/09/2021. FINDINGS: The heart size, mediastinal configuration and pulmonary vascularity are within normal limits. Lung dye with slight hyperinflation and chronic appearing changes. No infiltrate, effusion or pneumothorax. Advanced degenerative changes, perhaps prior traumatic change, of the proximal left humerus and shoulder. IMPRESSION: Negative appearing single view chest. Dictated by: Dictated on workstation # [id number]
[2022-03-12 20:55] LABS: ALANINE AMINOTRANSFERASE 23 U/L (0-55); ALBUMIN 4.3 GM/DL (3.2-4.5); ALKALINE PHOSPHATASE 68 U/L (40-136); BILIRUBIN,TOTAL 0.3 MG/DL (0.1-1.0); BUN/CREATININE RATIO 22; CALCIUM 9.8 MG/DL (8.5-10.1); CARBON DIOXIDE 24 MMOL/L (21-32); CHLORIDE 99 MMOL/L (98-107); CREATINE KINASE 93 U/L (29-168); CREATININE SERUM 1.39 MG/DL (0.60-1.30); GFR ESTIMATED 38; GLUCOSE 173 MG/DL (70-105); MAGNESIUM 1.8 MG/DL (1.6-2.4); POTASSIUM 3.8 MMOL/L (3.6-5.0); SODIUM 139 MMOL/L (135-145); TOTAL PROTEIN 7.4 GM/DL (6.4-8.2)
[2022-03-12 21:14] LABS: CREATINE KINASE MB 1.8 NG/ML (<6.6); TSH (THYROID ANALYZER) 4.59 UIU/ML (0.35-4.94)
[2022-03-12 21:30] VITALS: BP 132/61
== END 2022-03-12 21:33 | disposition home or self-care (01) ==
LOC: EDUNIT# 20:19 → ER 20:21
DX: I47.1 Supraventricular tachycardia (principal); Z95.5 Presence of coronary angioplasty implant and graft
CPT/HCPCS: 36415; 71045; 80053; 82550; 82553; 83735; 83874; 83880; 84443; 84484; 85025; 85610; 85730; 93005; 93041

== ENCOUNTER 2022-05-14 22:20 | Emergency (ER) | payer MEDICARE ==
[~2022-05-14] VITALS: Ht 167.7 cm; Wt 63.5 kg
--- NOTE | 2022-05-14 22:29 | ED Cardiac General ---
History of Present Illness General Stated Complaint: SVT Source: patient Exam Limitations: no limitations History of Present Illness Date Seen by Provider: May 14, 2022 Time Seen by Provider: 22:22 Initial Comments 81-year-old female presents the emergency department today stating her SVT is acting up. She states she has been dealing with this since she was 18 years old. She is requesting adenosine. Symptoms started about 1 hour prior to arrival she got up and resolved on its own but has not. No chest pain or shortness of breath. No dizziness or lightheadedness. She has feeling of a fast heartbeat with no other symptoms. No recent medication changes. She sees Dr. Miller Allergies and Home Medications Allergies Coded Allergies: codeine (Verified Allergy, Unknown, 01/03/17) Patient Home Medication List Home Medication List Reviewed: Yes Apixaban (Eliquis) 5 Mg Tablet, 5 MG PO BID Prescribed by: LUCRETIA FREITAS on 05/16/21 1108 Aspirin (Aspirin EC) 81 Mg Tablet.dr, 81 MG PO HS, (Reported) Entered as Reported by: GERARD COBB on 03/20/17 08 Digoxin (Digoxin) 125 Mcg Tablet, 125 MCG PO DAILY, (Reported) Entered as Reported by: GERARD COBB on 03/20/17837 Digoxin (Digoxin) 250 Mcg Tablet, 250 MCG PO DAILY Prescribed by: RUBY BALDERAS on 01/12/182141 Fluticasone/Salmeterol (Advair 250-50 Diskus) 1 Each Blst.w.dev, 1 PUFF IH BID, (Reported) Entered as Reported by: GERARD COBB on 03/20/17 08 Hydrochlorothiazide (Hydrochlorothiazide) 25 Mg Tablet, 25 MG PO DAILY, (Reported) Entered as Reported by: GERARD COBB on 03/20/17 08 Ipratropium/Albuterol Sulfate (Iprat-Albut 0.5-3(2.5) mg/3 ml) 3 Ml Ampul.neb, 3 ML IH QID, (Reported) Entered as Reported by: GERARD COBB on 03/20/17 08 Magnesium Oxide (Magnesium Oxide) 400 Mg Tablet, 400 MG PO DAILY, (Reported) Entered as Reported by: GERARD COBB on 8/28/17 0838 Magnesium Oxide (Magnesium Oxide) 400 Mg Tablet, 400 MG PO BID Prescribed by: CISCO FOWLER on 05/29/19 1430 Magnesium Oxide (Magnesium Oxide) 400 Mg Tablet, 400 MG PO BID Prescribed by: LUCRETIA FREITAS on 05/16/21 1108 Metformin HCl (Metformin HCl) 500 Mg Tablet, 500 MG PO BID, (Reported) Entered as Reported by: GERARD COBB on 03/20/17 0838 Metoprolol Tartrate (Metoprolol Tartrate) 50 Mg Tablet, 50 MG PO TID, (Reported) Entered as Reported by: GERARD COBB on 03/20/17 0838 Potassium Chloride (Potassium Chloride) 20 Meq Tab.er.prt, 20 MEQ PO BID Prescribed by: RUBY BALDERAS on 01/12/182141 Potassium Chloride (Potassium Chloride) 10 Meq Tablet.er, 10 MEQ PO DAILY Prescribed by: CISCO FOWLER on 05/29/19 1430 Simvastatin (Zocor) 80 Mg Tablet, 80 MG PO HS, (Reported) Entered as Reported by: GERARD COBB on 03/20/17 0838 Review of Systems Review of Systems Constitutional: no symptoms reported EENTM: No Symptoms Reported Respiratory: No Symptoms Reported Cardiovascular: Irregular Heart Rate Gastrointestinal: No Symptoms Reported Genitourinary: No Symptoms Reported Musculoskeletal: no symptoms reported Skin: no symptoms reported Psychiatric/Neurological: No Symptoms Reported Endocrine: No Symptoms Reported Hematologic/Lymphatic: No Symptoms Reported Past Dtltfvr-Sleppo-Xqsati Hx Patient Social History Tobacco Use?: No Use of E-Cig and/or Vaping dev: No Substance use?: No Alcohol Use?: No Immunizations Up To Date Tetanus Booster (TDap): Unknown PED Vaccines UTD: No First/Initial COVID19 Vaccinat: 2020 Second COVID19 Vaccination Toney: 2021 Seasonal Allergies Seasonal Allergies: No Past Medical History Surgery/Hospitalization HX: AFIB, SVT, HTN Surgeries: Yes (CARDIAC CATH-STENT X 1 IN 2008; BILATERAL CATARACTS) Cardiac, Coronary Stent, Eye Surgery Respiratory: Yes (O2 AT HS) COPD Currently Using CPAP: No Currently Using BIPAP: No Cardiac: Yes (SVT; STENT X 1) Aneurysm, Coronary Artery Disease, High Cholesterol, Hypertension, Irregular Heartbeat, Peripheral Vascular 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) 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: No 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 Sexually Transmitted Disease: No HIV/AIDS: No Genitourinary: No Gastrointestinal: No Musculoskeletal: Yes Arthritis Endocrine: Yes Diabetes, Non-Insulin dep HEENT: Yes (BILATERAL CATARACT SURGERY) Cataract Loss of Vision: Denies Hearing Impairment: Denies Cancer: No Psychosocial: No Integumentary: No Blood Disorders: No Adverse Reaction/Blood Tranf: No Family Medical History Reviewed Nursing Family Hx Cardiovascular disease 19 FATHER 19 MOTHER G8 SISTER Diabetes mellitus G8 SISTER FH: cirrhosis G8 SISTER Hypertension 19 FATHER 19 MOTHER No Pertinent Family Hx Physical Exam Vital Signs Vital Signs - First Documented 05/14/22 22:23 Temp 37.1 Pulse 163 Resp 20 B/P (MAP) 175/94 (121) Pulse Ox 95 O2 Delivery Room Air Capillary Refill : Height, Weight, BMI Height: 5'6.00" Weight: 150lbs. 0oz. [id number]; 27.00 BMI Method:Stated General Appearance: No Apparent Distress HEENT: Normal ENT Inspection, Pharynx Normal Neck: Full Range of Motion, Normal Inspection, Non Tender, Supple Respiratory: Chest Non Tender, Lungs Clear, Normal Breath Sounds, No Accessory Muscle Use, No Respiratory Distress Cardiovascular: No Gallop, No JVD, No Murmur, Normal Peripheral Pulses, T achycardia Gastrointestinal: Normal Bowel Sounds, No Organomegaly, No Pulsatile Mass, Non Tender, Soft Extremity: Normal Capillary Refill, Normal Inspection, Normal Range of Motion, Non Tender, No Calf Tenderness Neurologic/Psychiatric: Alert, Oriented x3, No Motor/Sensory Deficits Skin: Normal Color, Warm/Dry Lymphatic: No Adenopathy Progress/Results/Core Measures Results/Orders Lab Results Laboratory Tests Test 05/14/22 22:26 Range/Units White Blood Count 9.6 4.3-11.0 10^3/uL Red Blood Count 4.62 3.80-5.11 10^6/uL Hemoglobin 14.5 11.5-16.0 g/dL Hematocrit 43 35-52 % Mean Corpuscular Volume 92 80-99 fL Mean Corpuscular Hemoglobin 31 25-34 pg Mean Corpuscular Hemoglobin Concent 34 32-36 g/dL Red Cell Distribution Width 13.7 10.0-14.5 % Platelet Count 228 130-400 10^3/uL Mean Platelet Volume 9.1 9.0-12.2 fL Immature Granulocyte % (Auto) 1 % Neutrophils (%) (Auto) 57 42-75 % Lymphocytes (%) (Auto) 32 12-44 % Monocytes (%) (Auto) 8 0-12 % Eosinophils (%) (Auto) 3 0-10 % Basophils (%) (Auto) 1 0-10 % Neutrophils # (Auto) 5.4 1.8-7.8 10^3/uL Lymphocytes # (Auto) 3.1 1.0-4.0 10^3/uL Monocytes # (Auto) 0.7 0.0-1.0 10^3/uL Eosinophils # (Auto) 0.3 0.0-0.3 10^3/uL Basophils # (Auto) 0.1 0.0-0.1 10^3/uL Immature Granulocyte # (Auto) 0.1 0.0-0.1 10^3/uL Sodium Level 139 135-145 MMOL/L Potassium Level 3.7 3.6-5.0 MMOL/L Chloride Level 102 98-107 MMOL/L Carbon Dioxide Level 21 21-32 MMOL/L Anion Gap 16 H 5-14 MMOL/L Blood Urea Nitrogen 33 H 7-18 MG/DL Creatinine 1.15 0.60-1.30 MG/DL Estimat Glomerular Filtration Rate 48 BUN/Creatinine Ratio 29 Glucose Level 169 H 70-105 MG/DL Calcium Level 9.8 8.5-10.1 MG/DL Magnesium Level 1.7 1.6-2.4 MG/DL My Orders Orders - PEDRO LUIS TAYLOR DO Ekg Tracing (05/14/22 22:22) Basic Metabolic Panel (05/14/22 22:26) Magnesium (05/14/22 22:26) Cbc With Automated Diff (05/14/22 22:26) Adenosine Injection (Adenocard Injection (05/14/22 22:30) Ns Iv 1000 Ml (Sodium Chloride 0.9%) (05/14/22 22:31) Vital Signs/I&O 05/14/22 22:23 Temp 37.1 Pulse 163 Resp 20 B/P (MAP) 175/94 (121) Pulse Ox 95 O2 Delivery Room Air Departure Communication (Admissions) Patient initiated treatment to [id number]. Walking around and getting ready to give her adenosine she converted spontaneously. She briefly went back into SVT and then converted again. She remained in sinus rhythm thereafter. She never any chest pain. She has had this happen to her very frequently and since she was 18 years old and is well versed. Her electrolytes are normal no recent medication changes. She is discharged with cardiology follow-up. Impression Primary Impression: SVT (supraventricular tachycardia) Disposition: 01 HOME, SELF-CARE Condition: Stable Departure-Patient Inst. Referrals: SHARON SHI MD (PCP/Family) Primary Care Physician Patient Instructions: Paroxysmal Supraventricular Tachycardia (DC) Add. Discharge Instructions: Continue all medications as previously prescribed. 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 Return to the emergency department for any severe concerns. PEDRO LUIS TAYLOR DO May 14, 2022 22:29
[2022-05-14] MEDS ORDERED: ADENOSINE 6 MG/2 ML (ADENOCARD) VIAL IV ONE (22:30)
[2022-05-14] MEDS ORDERED: NS IV 1000 ML 1,000 ML ONE (22:31)
[2022-05-14 22:33] LABS: BASOPHILS # (AUTO) 0.1 10^3/uL (0.0-0.1); BASOPHILS % (AUTO) 1 % (0-10); EOSINOPHILS # (AUTO) 0.3 10^3/uL (0.0-0.3); EOSINOPHILS % (AUTO) 3 % (0-10); HEMATOCRIT 43 % (35-52); HEMOGLOBIN 14.5 g/dL (11.5-16.0); LYMPHOCYTES # (AUTO) 3.1 10^3/uL (1.0-4.0); LYMPHOCYTES % (AUTO) 32 % (12-44); MEAN CORPUSCULAR HEMOGLOBIN 31 pg (25-34); MEAN CORPUSCULAR HGB CONC 34 g/dL (32-36); MEAN CORPUSCULAR VOLUME 92 fL (80-99); MEAN PLATELET VOLUME 9.1 fL (9.0-12.2); MONOCYTES # (AUTO) 0.7 10^3/uL (0.0-1.0); MONOCYTES % (AUTO) 8 % (0-12); NEUTROPHILS # (AUTO) 5.4 10^3/uL (1.8-7.8); NEUTROPHILS % (AUTO) 57 % (42-75); PLATELET COUNT 228 10^3/uL (130-400); WHITE BLOOD COUNT 9.6 10^3/uL (4.3-11.0)
[2022-05-14 22:45] LABS: POTASSIUM 3.7 MMOL/L (3.6-5.0)
[2022-05-14 22:46] LABS: CALCIUM 9.8 MG/DL (8.5-10.1)
[2022-05-14 22:50] LABS: CREATININE SERUM 1.15 MG/DL (0.60-1.30)
[2022-05-14 22:53] LABS: MAGNESIUM 1.7 MG/DL (1.6-2.4)
[2022-05-14 23:31] VITALS: BP 140/70
== END 2022-05-14 23:33 | disposition home or self-care (01) ==
LOC: EDUNIT# 22:20 → ER 22:21
DX: I47.1 Supraventricular tachycardia (principal); J44.9 Chronic obstructive pulmonary disease, unspecified; Z95.5 Presence of coronary angioplasty implant and graft; Z99.81 Dependence on supplemental oxygen
CPT/HCPCS: 36415; 80048; 83735; 85025; 93005

== ENCOUNTER → 2022-10-27 | Outpatient (CLI) | payer MEDICARE ==
[~2022-10-27] MED LIST changes: +CLOP-31 PO; -CLOP75TA69 PO
== END ==
LOC: CARD 13:19
PROVIDERS: ATTEND Internal Medicine Cardiovascular Disease
DX: I35.0 Nonrheumatic aortic (valve) stenosis (principal); I10 Essential (primary) hypertension
CPT/HCPCS: 93306

== ENCOUNTER 2023-05-12 03:31 | Emergency (ER) | payer MEDICARE ==
[~2023-05-12] VITALS: Ht 167.7 cm; Wt 60.3 kg
[2023-05-12] MEDS ORDERED: ADENOSINE INJECTION 6 MG/2 ML VIAL IV ONE ×3 (03:40→03:45)
[2023-05-12 03:46] LABS: BASOPHILS # (AUTO) 0.1 10^3/uL (0.0-0.1); BASOPHILS % (AUTO) 1 % (0-10); EOSINOPHILS # (AUTO) 0.3 10^3/uL (0.0-0.3); EOSINOPHILS % (AUTO) 4 % (0-10); HEMATOCRIT 41 % (35-52); HEMOGLOBIN 13.4 g/dL (11.5-16.0); LYMPHOCYTES # (AUTO) 1.8 10^3/uL (1.0-4.0); LYMPHOCYTES % (AUTO) 21 % (12-44); MEAN CORPUSCULAR HEMOGLOBIN 30 pg (25-34); MEAN CORPUSCULAR HGB CONC 33 g/dL (32-36); MEAN CORPUSCULAR VOLUME 92 fL (80-99); MEAN PLATELET VOLUME 9.2 fL (9.0-12.2); MONOCYTES # (AUTO) 0.7 10^3/uL (0.0-1.0); MONOCYTES % (AUTO) 9 % (0-12); NEUTROPHILS # (AUTO) 5.6 10^3/uL (1.8-7.8); NEUTROPHILS % (AUTO) 66 % (42-75); PLATELET COUNT 220 10^3/uL (130-400); WHITE BLOOD COUNT 8.6 10^3/uL (4.3-11.0)
[2023-05-12 03:57] LABS: POTASSIUM 4.2 MMOL/L (3.6-5.0)
[2023-05-12 03:58] LABS: CALCIUM 9.5 MG/DL (8.5-10.1)
[2023-05-12 04:03] LABS: CREATININE SERUM 1.17 MG/DL (0.60-1.30)
[2023-05-12 04:05] LABS: MAGNESIUM 1.6 MG/DL (1.6-2.4)
--- NOTE | 2023-05-12 04:19 | ED Cardiac General ---
History of Present Illness General Chief Complaint: Cardiac/General Problems Stated Complaint: SVT Nursing Triage Note: PT TO RM 3 VIA [facility] FROM HOME W C/O SVT X3 HRS. PT REPORTS THIS IS HER SECOND EPISODE TONIGHT, PT A&OX4, DENIES PAIN. EMS INITIATED 18G LAC SL PATENT UPON ARRIVAL TO ED W 1L NS INFUSING. Source: patient, old records Exam Limitations: no limitations History of Present Illness Date Seen by Provider: May 12, 2023 Time Seen by Provider: 03:35 Initial Comments This 82-year-old woman with longstanding history of paroxysmal SVT presents to the emergency room with an episode of SVT that started around 2114. She took metoprolol tartrate 100 mg at that time. She reports converting back to sinus rhythm briefly. She then went back into SVT and took another dose of metoprolol at midnight. She has remained in SVT since. She presents to the emergency room via EMS. She is alert and oriented and in no acute distress. Heart rate is in the 150s and appears to be SVT on the monitor. SVT is confirmed by EKG. her primary care provider is Dr. Brock, and she follows with a turner machine in [place]. Allergies and Home Medications Allergies Coded Allergies: codeine (Verified Allergy, Unknown, 01/03/17) Patient Home Medication List Home Medication List Reviewed: Yes Apixaban (Eliquis) 5 Mg Tablet, 5 MG PO BID Prescribed by: LUCRETIA FREITAS on 05/16/21 1108 Aspirin (Aspirin EC) 81 Mg Tablet.dr, 81 MG PO HS, (Reported) Entered as Reported by: GERARD COBB on 03/20/17 0838 Digoxin (Digoxin) 125 Mcg Tablet, 125 MCG PO DAILY, (Reported) Entered as Reported by: GERARD COBB on 03/20/17 0838 Digoxin (Digoxin) 250 Mcg Tablet, 250 MCG PO DAILY Prescribed by: RUBY BALDERAS on 01/12/182141 Fluticasone/Salmeterol (Advair 250-50 Diskus) 1 Each Blst.w.dev, 1 PUFF IH BID, (Reported) Entered as Reported by: GERARD COBB on 03/20/17 0838 Hydrochlorothiazide (Hydrochlorothiazide) 25 Mg Tablet, 25 MG PO DAILY, (Reported) Entered as Reported by: GERARD COBB on 03/20/17 08 Ipratropium/Albuterol Sulfate (Iprat-Albut 0.5-3(2.5) mg/3 ml) 3 Ml Ampul.neb, 3 ML IH QID, (Reported) Entered as Reported by: GERARD COBB on 03/20/17 08 Magnesium Oxide (Magnesium Oxide) 400 Mg Tablet, 400 MG PO DAILY, (Reported) Entered as Reported by: GERARD COBB on 03/20/17837 Magnesium Oxide (Magnesium Oxide) 400 Mg Tablet, 400 MG PO BID Prescribed by: CISCO FOWLER on 05/29/19 1430 Magnesium Oxide (Magnesium Oxide) 400 Mg Tablet, 400 MG PO BID Prescribed by: LUCRETIA FREITAS on 05/16/21 1108 Metformin HCl (Metformin HCl) 500 Mg Tablet, 500 MG PO BID, (Reported) Entered as Reported by: GERARD COBB on 03/20/17837 Metoprolol Tartrate (Metoprolol Tartrate) 50 Mg Tablet, 50 MG PO TID, (Reported) Entered as Reported by: GERARD COBB on 03/20/17837 Potassium Chloride (Potassium Chloride) 20 Meq Tab.er.prt, 20 MEQ PO BID Prescribed by: RUBY BALDERAS on 01/12/182141 Potassium Chloride (Potassium Chloride) 10 Meq Tablet.er, 10 MEQ PO DAILY Prescribed by: CISCO FOWLER on 05/29/19 1430 Simvastatin (Zocor) 80 Mg Tablet, 80 MG PO HS, (Reported) Entered as Reported by: GERARD COBB on 03/20/17837 Review of Systems Review of Systems Constitutional: no symptoms reported EENTM: No Symptoms Reported Respiratory: No Symptoms Reported Cardiovascular: See HPI Gastrointestinal: No Symptoms Reported Genitourinary: No Symptoms Reported Musculoskeletal: no symptoms reported Skin: no symptoms reported Psychiatric/Neurological: No Symptoms Reported Endocrine: No Symptoms Reported Hematologic/Lymphatic: No Symptoms Reported Past Accnudx-Gskanh-Fydzio Hx Patient Social History Tobacco Use?: No Use of E-Cig and/or Vaping dev: No Substance use?: No Alcohol Use?: No Immunizations Up To Date Tetanus Booster (TDap): Unknown PED Vaccines UTD: No First/Initial COVID19 Vaccinat: 2021 Second COVID19 Vaccination Toney: 2021 Third COVID19 Vaccination Date: 2021 Seasonal Allergies Seasonal Allergies: No Past Medical History Surgery/Hospitalization HX: AFIB, SVT, HTN Surgeries: Yes (CARDIAC CATH-STENT X 1 IN 2008; BILATERAL CATARACTS) Cardiac, Coronary Stent, Eye Surgery Respiratory: Yes (O2 AT HS) COPD Currently Using CPAP: No Currently Using BIPAP: No Cardiac: Yes (SVT; STENT X 1) Aneurysm, Coronary Artery Disease, High Cholesterol, Hypertension, Irregular Heartbeat, Peripheral Vascular 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) 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: 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 Sexually Transmitted Disease: No HIV/AIDS: No Genitourinary: No Gastrointestinal: No Musculoskeletal: Yes Arthritis Endocrine: Yes Diabetes, Non-Insulin dep HEENT: Yes (BILATERAL CATARACT SURGERY) Cataract Loss of Vision: Denies Hearing Impairment: Denies Cancer: No Psychosocial: No Integumentary: No Blood Disorders: No Adverse Reaction/Blood Tranf: No Family Medical History Cardiovascular disease 19 FATHER 19 MOTHER G8 SISTER Diabetes mellitus G8 SISTER FH: cirrhosis G8 SISTER Hypertension 19 FATHER 19 MOTHER No Pertinent Family Hx Physical Exam Vital Signs Vital Signs - First Documented 05/12/23 03:31 Temp 36.8 Pulse 154 Resp 18 B/P (MAP) 121/68 (85) Pulse Ox 98 O2 Delivery Room Air Capillary Refill : Less Than 3 Seconds Height, Weight, BMI Height: 5'6.00" Weight: 150lbs. 0oz. 68.127250uk; 21.00 BMI Method:Stated General Appearance: No Apparent Distress, WD/WN HEENT: Normal ENT Inspection Neck: Normal Inspection; No JVD Respiratory: Lungs Clear, Normal Breath Sounds, No Accessory Muscle Use Cardiovascular: Regular Rate, Rhythm (After conversion), No Edema, No Murmur, Tachycardia Extremity: Normal Inspection Neurologic/Psychiatric: Alert, Oriented x3, No Motor/Sensory Deficits, Normal Mood/Affect Skin: Normal Color, Warm/Dry Progress/Results/Core Measures Results/Orders Lab Results Laboratory Tests Test 05/12/23 03:39 Range/Units White Blood Count 8.6 4.3-11.0 10^3/uL Red Blood Count 4.42 3.80-5.11 10^6/uL Hemoglobin 13.4 11.5-16.0 g/dL Hematocrit 41 35-52 % Mean Corpuscular Volume 92 80-99 fL Mean Corpuscular Hemoglobin 30 25-34 pg Mean Corpuscular Hemoglobin Concent 33 32-36 g/dL Red Cell Distribution Width 14.6 H 10.0-14.5 % Platelet Count 220 130-400 10^3/uL Mean Platelet Volume 9.2 9.0-12.2 fL Immature Granulocyte % (Auto) 1 % Neutrophils (%) (Auto) 66 42-75 % Lymphocytes (%) (Auto) 21 12-44 % Monocytes (%) (Auto) 9 0-12 % Eosinophils (%) (Auto) 4 0-10 % Basophils (%) (Auto) 1 0-10 % Neutrophils # (Auto) 5.6 1.8-7.8 10^3/uL Lymphocytes # (Auto) 1.8 1.0-4.0 10^3/uL Monocytes # (Auto) 0.7 0.0-1.0 10^3/uL Eosinophils # (Auto) 0.3 0.0-0.3 10^3/uL Basophils # (Auto) 0.1 0.0-0.1 10^3/uL Immature Granulocyte # (Auto) 0.0 0.0-0.1 10^3/uL Sodium Level 136 135-145 MMOL/L Potassium Level 4.2 3.6-5.0 MMOL/L Chloride Level 99 98-107 MMOL/L Carbon Dioxide Level 26 21-32 MMOL/L Anion Gap 11 5-14 MMOL/L Blood Urea Nitrogen 31 H 7-18 MG/DL Creatinine 1.17 0.60-1.30 MG/DL Estimat Glomerular Filtration Rate 46 BUN/Creatinine Ratio 26 Glucose Level 189 H 70-105 MG/DL Calcium Level 9.5 8.5-10.1 MG/DL Magnesium Level 1.6 1.6-2.4 MG/DL TSH [place] Testing 3.76 0.35-4.94 UIU/ML My Orders Orders - LUCRETIA KOHLER MD Adenosine Injection (Adenosine Injection (05/12/23 03:45) Adenosine Injection (Adenosine Injection (05/12/23 03:45) Basic Metabolic Panel (05/12/23 03:39) Cbc And Automated Diff (05/12/23 03:39) Magnesium (05/12/23 03:39) Ekg Tracing (05/12/23 03:39) Monitor-Rhythm Ecg Trace Only (05/12/23 03:39) Ekg Tracing (05/12/23 03:40) Thyroid Analyzer (05/12/23 03:42) Adenosine Injection (Adenosine Injection (05/12/23 03:40) Medications Given in ED Current Medications Medications Dose Ordered Sig/Melanie Route Start Time Stop Time Status Last Admin Dose Admin Adenosine 6 mg ONCE ONCE IV 05/12/23 03:45 05/12/23 03:46 DC 05/12/23 03:42 6 MG Vital Signs/I&O 05/12/23 03:31 Temp 36.8 Pulse 154 Resp 18 B/P (MAP) 121/68 (85) Pulse Ox 98 O2 Delivery Room Air Blood Pressure Mean: 85 Progress Progress Note #1: Time: 04:20 Progress Note Patient was promptly interviewed and examined upon arrival. Report was received from EMS. EKG confirmed SVT. Adenosine 6 mg IV push was administered and successfully converted rhythm to sinus. Labs were obtained and interpreted by me. CBC was unremarkable. BMP was notable for a mild elevation in creatinine at 1.17 which is baseline. BUN was 31. Glucose was elevated at 189. Magnesium was normal at 1.6. Progress Note #2: Time: 04:31 Progress Note Thyroid cascade was normal. Rhythm remains sinus with a rate of 66 on the monitor. Blood pressure is presently 106/52. Patient is being discharged to outpatient follow-up. Initial ECG Impression Date: May 12, 2023 EKG #1: EKG Time: 03:40 Rate: 153 Rhythm: SVT Comment SVT with no ST elevation. Subtle ST depression noted. No other abnormal intervals or axis deviation. EKG #2: EKG Time: 03:45 Rate: 78 Rhythm: Normal Sinus Intervals: Normal ECG Impression: Normal Comment This EKG represents conversion to sinus rhythm from SVT after administration of adenosine 6 mg. Normal sinus rhythm with no ST elevation or depression. No abnormal intervals or axis deviation. Departure Impression Primary Impression: Paroxysmal SVT (supraventricular tachycardia) Disposition: 01 HOME, SELF-CARE Condition: Improved Departure-Patient Inst. Decision time for Depature: 04:22 Referrals: SHARON BROCK MD (PCP/Family) Primary Care Physician Patient Instructions: Supraventricular tachycardia (SVT) Add. Discharge Instructions: Continue your medications as previously directed. Please notify your cardiology office of this episode of SVT and inquire about any further instructions. Return to care if you have persistent recurrent episodes of SVT not responsive to Valsalva maneuver or medications. All discharge instructions reviewed with patient and/or family. Voiced understanding. LUCRETIA KOHLER MD May 12, 2023 04:19
[2023-05-12 04:25] LABS: TSH (THYROID ANALYZER) 3.76 UIU/ML (0.35-4.94)
[2023-05-12 04:35] VITALS: BP 106/52
== END 2023-05-12 04:37 | disposition home or self-care (01) ==
LOC: EDUNIT# 03:31 → ER 03:33
DX: I47.10 Supraventricular tachycardia, unspecified (principal); R79.89 Other specified abnormal findings of blood chemistry; E11.9 Type 2 diabetes mellitus without complications; J44.9 Chronic obstructive pulmonary disease, unspecified; Z99.81 Dependence on supplemental oxygen
CPT/HCPCS: 36415; 80048; 83735; 84443; 85025; 93005; 93041; 96374